=== PATIENT | female | born 1945 | race American Indian/Alaskan Native ===

== ENCOUNTER 2016-07-24 14:25 | Inpatient (IN) | payer MEDICARE ==
[~2016-07-24 14:25] MED LIST: DDAVP ONE; NACL 0.9% ONE
--- NOTE | 2016-07-24 14:49 | Emergency Department Report ---
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 Miramontes. Patient reports she's been having chest pain she had chest pressure for 7 days. She reports she had some nausea but not lately. Patient does complain of headache. - Exam Physical Exam: She's alert and oriented 3 cardiovascular S1-S2 regular rate and rhythm respiratory mild rales at the bases. Abdomen soft nontender nondistended. There is 2+ edema bilateral lower extremities MSE screening note: Focused history and physical exam performed. Due to findings the following was ordered: Appropriate labs and x-rays ordered inform charge nurse of patient's condition. ED Disposition for MSE Condition: Stable
[2016-07-24 15:08] LABS: Basophils % (Auto) 0.7 % (0.0-1.8); Eosinophils % (Auto) 2.8 % (0.0-4.3); Hematocrit 28.6 % (30.3-42.9); Mean Corpuscular HGB Conc 35 % (30-34); Mean Corpuscular Hemoglobin 31 pg (28-32); Mean Corpuscular Volume 89 fl (79-97); Platelet Count 355 K/mm3 (140-440); Red Cell Distribution Width 14.2 % (13.2-15.2); White Blood Count 7.1 K/mm3 (4.5-11.0)
[2016-07-24 15:19] LABS: INR 1.08 (0.87-1.13)
[2016-07-24 15:20] LABS: Partial Thromboplastin Time 32.6 Sec. (24.2-36.6)
[2016-07-24 15:25] LABS: BUN/Creatinine Ratio 5.88; Calcium 8.3 mg/dL (8.4-10.2); Chloride 93.6 mmol/L (98-107); Potassium 3.3 mmol/L (3.6-5.0)
--- NOTE | 2016-07-24 15:39 | Cat Scan Report ---
CT HEAD WITHOUT CONTRAST: HISTORY: Headache, hypertension. TECHNIQUE: Sequential CT images without contrast. FINDINGS: Images obtained show bilateral prominence of the sulci and ventricles. There are no abnormal intra- or extra-axial blood or fluid collections. There are no focal masses or evidence of mass effect. The berger white matter differentiation appears within normal limits. Regions of periventricular decreased attenuation are consistent with microangiopathic ischemic disease. The posterior fossa structures including the fourth ventricle, cerebellum, and brainstem appear normal. IMPRESSION: Evidence of atrophy and microangiopathic ischemic disease. No acute intracranial process noted.
--- NOTE | 2016-07-24 15:51 | Event Note ---
Document Type: CARDS NTE Document Date: July 24, 2016 13:34 Document Status: Auth (Verified) Document Title: Cardiology Office Visit Note Performed By: Osmar Dobson on July 24, 2016 13:35 Verified By: Osmar Dobson on July 24, 2016 14:20 Encounter info: [id number], ARMANDO ROBERTS Visit, 07/24/2016 - * Final Report * Visit Information Referring Provider: Osmar Dobson Review of Systems Respiratory: Shortness of breath Cardiovascular: Chest Pain Genitourinary: Other: CKD stage 4 Endocrine: Other: decrease in urination Psychiatric: Depression Physical Exam Constitutional: In no acute distress, well-nourished Eyes: Normal conjunctivae and eyelids Ears, Nose, Mouth Throat: Normal oral mucosa without pallor or cyanosis Neck: Jugular veins not distended, jugular venous pressure not elevated Respiratory: Normal, unlabored respiratory effort Lungs clear to auscultation bilaterally Cardiovascular: PMI nondisplaced; no palpable thrills, lifts, or heaves Normal S1 and S2 with no murmurs, rubs, or gallops Blood pressure equal in both arms No carotid bruits, normal carotid pulses and equal bilaterally No abdominal bruits, abdominal aorta not enlarged No femoral bruits, normal femoral pulses and equal bilaterally Normal PT and DP pulses bilaterally No peripheral edema Abdomen: Abdomen soft, nontender and nondistended, normal bowel sounds Liver and spleen not enlarged Musculoskeletal: Normal gait Extremities: Warm, no clubbing or cyanosis Skin: Normal skin Mental status: Orientated to person, place, time Cooperative, appropriate mood and affect Neurologic: Cranial nerves intact No focal neurologic deficits Assessment/Plan Chest pain at rest R07.89 Patient was referred by Dr. Man because of chest pain. Patient's blood pressure was found to be to 80/120. Patient has severe chronic kidney disease. Her chest pain most likely related to underlying malignant hypertension. Discussed with the patient and daughter, recommended going to the emergency room for management of her blood pressure. They agreed with the plan. Chronic kidney disease (CKD), stage IV (severe) N18.4 Diabetes mellitus type 2, uncomplicated E11.9 Essential hypertension, malignant I10 Problem List/Past Medical History Ongoing Angina pectoris Aortic valve regurgitation Comments: Moderate on ECHO 08/2007,has to sleep sitting up at night and in day she can't walk much.Has underlying AI/MR. 07/20/2009>patient still having sgnificant S.O.B with mild exertion,echo cardiogram(07/16/2009) showed moderate AI,B.P still elevated. 07/24/2009>mild AI(2+).on cath. Echo 09/2010 showed minimal ,moderate AI.Normal EF.Mild concentric LVH. 03/18/2011>echo showed EF 55%,mild to moderate AI. 06/11/2011>denies any S.O.B or palpitations.10/19/2012> moderate AI on echo done 08/2011.Very mild . 12/2013>AI is mild to moderate with normal EF. Atherosclerosis of coronary artery Comments: at [facility],normal LV function,significant mid LAD lesion,small calibre vessel,circ>non obstructive lesion,no significant MR,mild AI>medical therapy. >Xience-V stents in mid and proximal LAD with good result,distal vessel is narrow caliber vessel. 11/22/2009>vision stent proximal RCA. cath > patent coronary arteries. 03/18/2011>Stress Nuclear Imaging>fixed anterior, anteroseptal and anteroapical defects,no stress induced ischemia. 04/10/2011> gets tightness in chest on walking short distance.Neg .stress thallium. 2011>stress thallium >exercised 5',had chest pain,mostly fixed defects noted.2011>echo EF 55%.10/29/2011>gets tightness on walking,has to stop. Considering neg. stress thallium,may consider ECCp. 01/29/2012>started on ECCP, 08/10/2012> normal iv lexiscan thallium noted at [facility]. 12/20/2012>finished EECP>helped her well.Encouraged to exercise. 04/05/2013.denies any cardiac symptoms recently. Chest pain at rest Comments: 07/24/2016>Most likely related to her severe hypertension, 280/120 mm.hg. Chronic kidney disease (CKD), stage IV (severe) Comments: 07/24/2016>Nearing hemodialysis. being followed by . Congestive Heart Failure, Unspecified Comments: 08-10 echo ef 50% Diabetes mellitus type 2, uncomplicated Comments: being followed by . Essential hypertension Comments: still elevated.Increase lisinopril to 20 mg. qday,also increase Bystolic to 10 mg. qday. Patient may be taking 2 drugs of same class(KWADWO/ARB,B- blockercoreg and Bystolic.) Needs to adjust meds. 10/11/2010>still elevated,add Amlodopine 5 mg. qday. when she was very young. echo done 09/16/2010>normal EF, mild concentric LVH. 04/10/2011>says not take all meds this AM.06/17/2013> fairly under control. Mitral valve regurgitation Comments: Moderate on ECHO 08/2007,no significant MR on cath 07/24/2009. Pulmonic valve regurgitation Comments: Mild on ECHO 08/2007 Historical No qualifying data Procedure History [facility]OLTER MONITOR-24hrs.-([facility]) - Date: 12/20/[address] HM [address] [id number] x 24hrs. ([facility])@ 15:38 hrs. in Rvd.-12/20/14* RETURNS HM-12/21/14-Rvd. ROV: 01/08/15-ESRMGeorge Colonoscopy - Date: 01/2015 Cardiovascular stress testing - Date: 2013 Echocardiogram - Date: 10/06/2014 Cardiac catheterization - Date: 04/16/2010 Percutaneous coronary intervention - Date: 11/22/2009 Vascular studies performed - Date: 10/27/2012 CHRISTINA History of tonsillectomy - Date: Hx of appendectomy - Date: Cholecystectomy - Date: H/O: hysterectomy - Date: History of nasal surgery - Date: HOLTER [id number].-([facility]) - Date: 05/21/[address] [id number] - ([facility]).Aakash 24hrs. @ 14:46hrs.-ESR-05/21/15.* *ROV: 06/12/15-ESR.MGeorge Myocardial perfusion scan - Date: 05/21/2015 EKG - Date: 04/15/2016 Medications amLODIPine 10 mg oral tablet, 10 mg, 1 tab(s), PO, qDay, 5 refills aspirin 81 mg oral tablet, 81 mg, 1 tab(s), PO, MWF Ativan Benedryl 50mg, See Instructions Brimonidine Tartrate Bumex, qDay cloNIDine 0.2 mg oral tablet, 0.2 mg, PO, TID, 3 refills clopidogrel 75 mg oral tablet, 75 mg, PO, qDay, 3 refills Colace 100 mg oral capsule, 100 mg, 1 cap(s), PO, BID, PRN Dexilant, 60 mg, PO, qDay furosemide 40 mg oral tablet, 40 mg, 1 tab(s), PO, qDay HumuLIN 70/30 Klor-Con 8 oral tablet, extended release, 8 mEq, PO, qDay, 6 refills labetalol 200 mg oral tablet, 200 mg, 1 tab(s), PO, TID, 2 refills pravastatin 40 mg oral tablet, 40 mg, PO, qHS, 3 refills traMADol 50 mg oral tablet, 50 mg, 1 tab(s), PO, q4hr, PRN Vitamin D3 1000 intl units oral tablet, 1000 IU, 1 tab(s), PO, qDay Allergies iodine morphine shrimp sulfa drugs Social History Alcohol Use No Physical Activity Denies Recreational Drug Use No Tobacco Use / Exposure Never smoker, No Never smoker, No Family History Congestive heart failure 02-MAY-2016 21:16:40<$>: Mother. Diabetes mellitus: Sibling. Heart attack: Father. High blood pressure: Sibling. Signature Line Electronically Signed by: Osmar Dobson MD on 07.24.16.02:20 PM ADDENDUM: Pt sent from our office to ED per Dr. Dobson. Pt seen and examined in ED. Agree with above examination and assessment. Resume home ASA, norvasc, labetolol, and clonidine. F/u echo. Will continue to follow. The patient has been seen in conjunction with Dr. Barnes who agrees with the assessment and plan of care.
--- NOTE | 2016-07-24 15:53 | XRay Report ---
CHEST 2 VIEWS: INDICATION: Shortness of breath, chest pain. COMPARISON: 07/18/2015 FINDINGS: PA and lateral chest radiographs demonstrate normal cardiomediastinal silhouette. Slightly greater prominence of lung markings, more so centrally. Minimal fluid or thickening along the right minor fissure is also new. No large pleural effusions or overt CHF, however. Demineralized bones. Few upper abdominal surgical clips. CONCLUSION: Slightly prominent lung markings/minimal congestion without overt CHF, as described. Please correlate. Thank you for the opportunity to participate in this patient's care.
[2016-07-24] MEDS: CATAPRES PO SCH ×2 (16:05→20:42)
--- NOTE | 2016-07-24 17:26 | Emergency Department Report ---
HPI - General Chief Complaint: High BP Time Seen by Provider: 07/24/16 14:44 - HPI HPI: Room 5 The patient is a 70-year-old female presenting with a chief complaint of chest pain and headache. 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 Patient claimed of headache and chest pain for the past 3 days. Patient states chest pain is substernal and dull, heavy and pressure-like in nature the pain is been intermittent. Patient does admit to shortness of breath and nausea/vomiting. Patient is uncertain she's been diaphoretic. The patient states her last stress test occurred earlier this year and was normal. The patient states last time she had a cardiac catheterization was 2008 Location: Chest, head Duration: Days, intermittently Quality: Heavy, pressure, dull Severity: Currently 0/10 Modifying factors: [see above] Context: [see above] Mode of transportation: [not driving] ED Past Medical Hx - Past Medical History Previous Medical History?: Yes Hx Hypertension: Yes (FOR 15+ YRS) Hx Heart Attack/AMI: Yes (IN 2008) Hx Congestive Heart Failure: Yes Hx Diabetes: Yes (30+ YRS) Hx GERD: Yes Hx Renal Disease: Yes (CKD) Hx Arthritis: Yes Hx Headaches / Migraines: Yes Hx Seizures: Yes (x1, not on meds) Hx Asthma: Yes (seasonal) - Surgical History Past Surgical History?: Yes Hx Coronary Stent: Yes (x3) Hx Cholecystectomy: Yes Hx Appendectomy: Yes Additional Surgical History: 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 - Family History Family history: no significant - Social History Smoking Status: Never Smoker Substance Use Type: Prescribed - Medications Home Medications: Home Medications Medication Instructions Recorded Confirmed Last Taken Type Dexlansoprazole [Dexilant] 60 mg PO QDAY #30 04/06/14 02/07/16 Rx 60mg Potassium Chloride [Klor-Con 8] 8 meq PO QDAY #30 tablet 04/06/14 02/07/1602/05 Rx 8meq cloNIDine [Catapres] 0.2 mg PO TID #90 tablet 04/06/14 02/07/16 02/07/16 08:00 Rx 0.2mg Clopidogrel [Plavix] 75 mg PO QDAY #30 tablet 12/02/07/16 02/07/16 08:00 Rx 75mg LORazepam [Ativan] 1 mg PO QHS #30 tablet 07/20/15 02/07/16 02/04/16 Rx 1mg Labetalol [Normodyne TAB] 200 mg PO TID #90 tablet 07/20/15 02/07/16 02/07/16 08 :00 Rx 200mg Latanoprost 0.005% [Xalatan 0.005%] 1 drops OU QPM bottle 07/20/15 02/07/16 Unknown Rx amLODIPine [Norvasc] 10 mg PO QDAY #30 tablet 07/20/15 02/07/16 02/07/16 08:00 Rx Aspirin BABY CHEW TAB 81 mg PO 3XW 02/07/16 02/07/16 01/26/16 History 81mg Brimonidine 0.15% [Alphagan P 1 drop INTRAOCULA TID 02/07/16 02/07/16 02/06/16 History 0.15%] 1 drop Bumetanide [Bumex] 1 mg PO DAILY 02/07/16 02/07/16 02/06/16 History 1mg Cholecalciferol (Vitamin D3) 1,000 units PO DAILY 02/07/16 02/07/16 2 Weeks Ago History 1000units Insulin Aspart Prot/Aspart 40 - 45 units SQ BID 02/07/16 02/07/16 02/06/16 History [NovoLOG Mix 70/30 VIAL] 40units Linaclotide [Linzess] 145 mcg PO DAILY 02/07/16 02/07/16 Unknown History Pravastatin Sodium [Pravastatin] 40 mg PO HS 02/07/16 02/07/16 01/31/16 History diphenhydrAMINE [Benadryl CAP] 50 mg PO Q8H 02/07/16 02/07/16 02/07/16 06:00 History predniSONE [Deltasone] 50 mg PO Q8H 02/07/16 02/07/16 02/07/16 History 0600 traMADol [Ultram] 50 mg PO Q4HR PRN #20 tablet 04/04/16 Unknown Rx ED Review of Systems ROS: Stated complaint: CHEST PAIN Other details as noted in HPI Comment: All other systems reviewed and negative Constitutional: denies: chills, fever Eyes: denies: eye pain, eye discharge, vision change ENT: denies: ear pain, throat pain Respiratory: shortness of breath Cardiovascular: chest pain Endocrine: no symptoms reported Gastrointestinal: nausea, vomiting Genitourinary: denies: urgency, dysuria, discharge Musculoskeletal: denies: back pain, joint swelling, arthralgia Skin: denies: rash, lesions Neurological: headache Psychiatric: denies: anxiety, depression Hematological/Lymphatic: denies: easy bleeding, easy bruising Physical Exam - Physical Exam Vital Signs: Vital Signs 07/24/16 07/24/16 07/24/16 14:25 15:46 16:05 Temperature 98.4 F Pulse Rate 81 78 78 Respiratory 22 16 Rate Blood Pressure 282/218 218/99 Blood Pressure 218/99 [Right] O2 Sat by Pulse 100 98 Oximetry Physical Exam: GENERAL: The patient is well-developed well-nourished female lying on stretcher not appearing to be in acute distress. [] HEENT: Normocephalic. Atraumatic. Extraocular motions are intact. Patient has moist mucous membranes. NECK: Supple. Trachea midline CHEST/LUNGS: Clear to auscultation. There is no respiratory distress noted. HEART/CARDIOVASCULAR: Regular. There is no tachycardia. There is no gallop rub or murmur. ABDOMEN: Abdomen is soft, nontender. Patient has normal bowel sounds. There is no abdominal distention. SKIN: There is no rash. There is no edema. There is no diaphoresis. NEURO: The patient is awake, alert, and oriented. The patient is cooperative. The patient has no focal neurologic deficits. The patient has normal speech. Cranial nerves II through XII grossly intact, no drift MUSCULOSKELETAL: There is no evidence of acute injury. ED Course Vital Signs 07/24/16 07/24/16 07/24/16 14:25 15:46 16:05 Temperature 98.4 F Pulse Rate 81 78 78 Respiratory 22 16 Rate Blood Pressure 282/218 218/99 Blood Pressure 218/99 [Right] O2 Sat by Pulse 100 98 Oximetry - Consultations Consultation #1: 07/24/16 17:[address] Swenson [facility]- ED Medical Decision Making - Lab Data Result diagrams: 07/24/16 14:54 07/24/16 14:54 Laboratory Tests 07/24/16 07/24/16 07/24/16 14:54 14:54 14:54 WBC 7.1 RBC 3.20 L Hgb 10.0 L Hct 28.6 L MCV 89 MCH 31 MCHC 35 H RDW 14.2 Plt Count 355 Lymph % (Auto) 22.6 [place] % (Auto) 5.5 Eos % (Auto) 2.8 Baso % (Auto) 0.7 Lymph # 1.6 [place] # 0.4 Eos # 0.2 Baso # 0.0 Seg Neutrophils % 68.4 Seg Neutrophils # 4.8 PT 13.9 INR 1.08 APTT 32.6 Sodium 132 L Potassium 3.3 L Chloride 93.6 L Carbon Dioxide 22 Anion Gap 20 BUN 20 H Creatinine 3.4 H Estimated GFR 16 BUN/Creatinine Ratio 5.88 Glucose 298 H Calcium 8.3 L Troponin T 0.026 NT-Pro-B Natriuret Pep 07/24/16 15:02 WBC RBC Hgb Hct MCV MCH MCHC RDW Plt Count Lymph % (Auto) [place] % (Auto) Eos % (Auto) Baso % (Auto) Lymph # [place] # Eos # Baso # Seg Neutrophils % Seg Neutrophils # PT INR APTT Sodium Potassium Chloride Carbon Dioxide Anion Gap BUN Creatinine Estimated GFR BUN/Creatinine Ratio Glucose Calcium Troponin T NT-Pro-B Natriuret Pep 30402 H - EKG Data -: EKG Interpreted by Me EKG shows normal: sinus rhythm Rate: normal - EKG Data When compared to previous EKG there are: changes noted Interpretation: unchanged when compared t (08/10/2012), nonspecific ST-T wave billy - Radiology Data Radiology results: report reviewed (CT head), image reviewed (CT head, chest x- ray) interpreted by me: Chest x-ray-no focal infiltrates, no pneumothorax CT head (read by radiologist)- evidence of atrophy and microangiopathic ischemic disease. No acute intracranial process noted. - Differential Diagnosis hypertensive emergency, hypertensive urgency, ACS, ICH Critical care attestation.: If time is entered above; I have spent that time in minutes in the direct care of this critically ill patient, excluding procedure time. ED Disposition Clinical Impression: Chest pain, Hypertensive urgency, Acute on chronic renal failure, Headache Disposition: OP ADMITTED IP TO THIS HOSP Is pt being admited?: Yes Does the pt Need Aspirin: No (renal failure) Condition: Fair Instructions: Chest Pain (ED) Time of Disposition: 17:29 (hospitalist paged)
[2016-07-24] MEDS ORDERED: NITRO-BID 2% TP ONE (17:29)
[2016-07-24] MEDS ORDERED: PLAVIX PO ONE (17:43)
--- NOTE | 2016-07-24 17:46 | Admit Criteria Form ---
Admission Criteria Documentation: HYPERTENSION Clinical Indications for Admission to Inpatient Care ( Place "X" for any and all applicable criteria): Admission is indicated for ANY ONE of the following(1)(2)(3)(4): [X]I. Hypertensive emergency, with evidence of acute and progressing target organ disease as indicated by ANY ONE of the following: [ ]a) Hypertensive encephalopathy (eg, confusion, altered mental status) [ ]b) Cerebral infarction [ ]c) Intracranial hemorrhage [ ]d) Myocardial ischemia or infarction [ ]e) Pulmonary edema [ ]f) Aortic dissection [ ]g) Seizure [X]h) Acute renal insufficiency [ ]i) Papilledema [ ]j) Microangiopathic hemolytic anemia [ ]II. Adrenergic crisis (eg, severe hypertension due to pheochromocytoma crisis, cocaine or amphetamine intoxication, or clonidine withdrawal) [X]III. Severe hypertension (SBP greater than 180 mmHg or DBP greater than 110 mmHg or greater than the 95th percentile for age, gender, and height in pediatric patients) that cannot be controlled (eg, to SBP less than 160 mmHg and DBP less than 100 mmHg in adults) by treatment with oral medication in emergency department or observation care Extended stay beyond goal length of stay may be needed for(11)(12)(13): [ ]a) Persistent hypertensive encephalopathy [ ]b) Continuation of pulmonary edema [ ]c) Recurring or persistent severe hypertension [ ]d) Target organ damage (eg, angina, stroke, aortic dissection) [ ]e) Associated renal insufficiency The original [employer] content created by [employer] has been revised. The portions of the content which have been revised are identified through the use of italic text or in bold, and [facility] has neither reviewed nor approved the modified material. All other unmodified content is copyright [employer]. Please see references footnoted in the original [employer] edition 2016
--- NOTE | 2016-07-24 18:29 | History and Physical Report ---
History of Present Illness Date of examination: 07/24/16 Date of admission: 07/24/2016 Chief complaint: Chest pain, shortness of breath and headache History of present illness: patient is 77-year-old with history of hypertension, coronary artery disease, CHF ,chronic kidney disease. She went to see a personal injury legal assistant Dr. Man had multiple complaints and was sent to prop attendant. She was evaluated by Dr. Dobson. She complained of chest pain. Her blood pressure was very elevated so was sent to the emergency department for further evaluation. Chest pain is 10 out of 10. Quality like a pressure. She denies any radiation. Chest pain is worse on exertion. Shortness of breath also worse on exertion. In emergency department initial blood pressure was 282/218. She was given clonidine, Norvasc and will be admitted to telemetry if BP controlled or ICU if BP remains high. She was evaluated by prop attendant in emergency department. Past History Past Medical History: acute VT, CAD, GERD, heart failure, hypertension, hyperlipidemia, renal failure (CKD), other (aortic valve regurg) Past Surgical History: appendectomy, cholecystectomy Social history: , lives with family, smoking (no smoking), alcohol abuse (no alcohol), full code Family history: diabetes, hypertension Medications and Allergies Allergies Allergy/AdvReac Type Severity Reaction Status Date / Time hydralazine Allergy Nausea Verified 07/24/16 14:37 iodine Allergy Itching Verified 07/24/16 14:37 morphine Allergy Nausea Verified 07/24/16 14:37 shellfish derived Allergy Swelling Verified 07/24/16 14:37 Sulfa (Sulfonamide Allergy Rash Verified 07/24/16 14:37 Antibiotics) Home Medications Medication Instructions Recorded Confirmed Last Taken Type Dexlansoprazole [Dexilant] 60 mg PO QDAY #30 timbo. 04/06/14 02/07/16 Rx 60mg Potassium Chloride [Klor-Con 8] 8 meq PO QDAY #30 tablet 04/06/14 02/07/1602/05 Rx 8meq cloNIDine [Catapres] 0.2 mg PO TID #90 tablet 04/06/14 02/07/16 02/07/16 08:00 Rx 0.2mg Clopidogrel [Plavix] 75 mg PO QDAY #30 tablet 07/20/15 02/07/16 02/07/16 08:00 Rx 75mg LORazepam [Ativan] 1 mg PO QHS #30 tablet 07/20/15 02/07/16 02/04/16 Rx 1mg Labetalol [Normodyne TAB] 200 mg PO TID #90 tablet 07/20/15 02/07/16 02/07/16 08 :00 Rx 200mg Latanoprost 0.005% [Xalatan 0.005%] 1 drops OU QPM bottle 07/20/15 02/07/16 Unknown Rx amLODIPine [Norvasc] 10 mg PO QDAY #30 tablet 07/20/15 02/07/16 02/07/16 08:00 Rx Aspirin BABY CHEW TAB 81 mg PO 3XW 02/07/16 02/07/16 01/26/16 History 81mg Brimonidine 0.15% [Alphagan P 1 drop INTRAOCULA TID 02/07/16 02/07/16 02/06/16 History 0.15%] 1 drop Bumetanide [Bumex] 1 mg PO DAILY 02/07/16 02/07/16 02/06/16 History 1mg Cholecalciferol (Vitamin D3) 1,000 units PO DAILY 02/07/16 02/07/16 2 Weeks Ago History 1000units Insulin Aspart Prot/Aspart 40 - 45 units SQ BID 02/07/16 02/07/16 02/06/16 History [NovoLOG Mix 70/30 VIAL] 40units Linaclotide [Linzess] 145 mcg PO DAILY 02/07/16 02/07/16 Unknown History Pravastatin Sodium [Pravastatin] 40 mg PO HS 02/07/16 02/07/16 01/31/16 History diphenhydrAMINE [Benadryl CAP] 50 mg PO Q8H 02/07/16 02/07/16 02/07/16 06:00 History predniSONE [Deltasone] 50 mg PO Q8H 02/07/16 02/07/16 02/07/16 History 0600 traMADol [Ultram] 50 mg PO Q4HR PRN #20 tablet 04/04/16 Unknown Rx Active Meds: Active Medications Aspirin (Aspirin) 81 mg PO DAILY [facility] Clonidine HCl (Catapres) 0.2 mg PO TID [facility] Last Admin: 07/24/16 16:05 Dose: 0.2 mg Labetalol HCl (Normodyne) 200 mg PO TID [facility] Review of Systems All systems: negative (fever, no cough, no abdominal pain, no urinary symptoms. All other systems reviewed and are negative) Exam - Constitutional Vitals: Temp Pulse Resp BP Pulse Ox 98.4 F 78 16 218/99 98 07/24/16 14:25 07/24/16 16:05 07/24/16 17:21 07/24/16 16:05 07/24/16 15:46 General appearance: Present: no acute distress - EENT Eyes: Present: PERRL, EOM intact ENT: hearing intact, clear oral mucosa - Neck Neck: Present: supple, normal ROM - Respiratory Respiratory effort: normal Respiratory: bilateral: CTA, negative: diminished, rales, rhonchi, wheezing - Cardiovascular Rhythm: regular Heart Sounds: Present: S1 & S2 (S1 and S2 regular, no murmurs rubs or gallops) - Extremities Extremities: no ischemia, No edema, normal temperature, normal color - Abdominal General gastrointestinal: Present: soft, non-tender, non-distended, normal bowel sounds - Integumentary Integumentary: Present: clear, warm, dry - Musculoskeletal Musculoskeletal: strength equal bilaterally - Psychiatric Psychiatric: appropriate mood/affect - Neurologic Neurologic: moves all extremities, other (awake alert oriented 3, no focal neurologic signs) Results - Labs CBC & Chem 7: 07/24/16 14:54 07/24/16 14:54 Labs: Abnormal lab results 07/24/16 07/24/16 07/24/16 Range/Units 14:54 14:54 15:02 RBC 3.20 L (3.65-5.03) M/mm3 Hgb 10.0 L (10.1-14.3) gm/dl Hct 28.6 L (30.3-42.9) % MCHC 35 H (30-34) % Sodium 132 L (137-145) mmol/L Potassium 3.3 L (3.6-5.0) mmol/L Chloride 93.6 L (98-107) mmol/L BUN 20 H (7-17) mg/dL Creatinine 3.4 H (0.7-1.2) mg/dL Glucose 298 H (65-100) mg/dL Calcium 8.3 L (8.4-10.2) mg/dL NT-Pro-B Natriuret Pep 05047 H (0-900) pg/mL Assessment and Plan Hypertensive emergency. Initial blood pressure 282/218. Clonidine 0.2 mg by mouth given. Admit to Telemetry if BP improves. If Blood pressure remains high he may have to transfer to ICU. Chest pain. This may be secondary to accelerated hypertension. Aspirin daily. Initial troponin normal. Patient evaluated by prop attendant Dr. Dobson in office and by prop attendant from same group in emergency department. Chronic diastolic CHF Ejection fraction 50-55% from records in the office. CAD s/p coronary stents, s/p myocardial infarction Acute on chronic kidney disease Stage 4. Creatinine 3.4 today, higher than baseline. Consult personal injury legal assistant Dr. Man DVT prophylaxis with heparin Full CODE STATUS
[2016-07-24] MEDS ORDERED: DULCOLAX PR PRN (18:31)
[2016-07-24] MEDS ORDERED: ZOFRAN IV PRN (18:31)
[2016-07-24] MEDS ORDERED: K-DUR PO ONE (18:52)
[2016-07-24] MEDS ORDERED: SODIUM CHLORIDE FLUSH SYRINGE 10 ML IV PRN (18:53)
[2016-07-24] MEDS ORDERED: CATAPRES ONE (20:34)
[2016-07-24] MEDS ORDERED: NORMODYNE ONE (20:34)
[2016-07-24] MEDS: NORMODYNE PO SCH (20:42)
--- NOTE | 2016-07-24 21:09 | Event Note ---
Date: 07/24/16 Blood pressure uncontrolled 221/100. Start Cardene infusion and transfer to ICU
[2016-07-24] MEDS: NITRO-BID 2% TP SCH (21:13)
[2016-07-24] MEDS ORDERED: CARDENE DRIP 40 MG/200 ML 200 ML ONE (22:32)
[2016-07-24] MEDS: CARDENE DRIP 40 MG/200 ML 200 ML IV SCH (22:40)
[2016-07-24] MEDS ORDERED: HEPARIN ONE (22:41)
[2016-07-24] MEDS: HEPARIN SUB-Q SCH (22:46)
[2016-07-25] MEDS: NITRO-BID 2% TP SCH ×4 (01:40→13:22)
[2016-07-25 04:37] LABS: Basophils % (Auto) 0.9 % (0.0-1.8); Eosinophils % (Auto) 3.7 % (0.0-4.3); Hematocrit 25.7 % (30.3-42.9); Hemoglobin 8.7 gm/dl (10.1-14.3); Mean Corpuscular HGB Conc 34 % (30-34); Mean Corpuscular Hemoglobin 30 pg (28-32); Mean Corpuscular Volume 89 fl (79-97); Platelet Count 324 K/mm3 (140-440); Red Blood Count 2.88 M/mm3 (3.65-5.03); Red Cell Distribution Width 14.1 % (13.2-15.2); White Blood Count 6.2 K/mm3 (4.5-11.0)
[2016-07-25 04:55] LABS: BUN/Creatinine Ratio 6.12; Chloride 101.8 mmol/L (98-107); Potassium 3.8 mmol/L (3.6-5.0)
[2016-07-25] MEDS: HEPARIN SUB-Q SCH ×3 (06:21→22:07)
[2016-07-25] MEDS: CARDENE DRIP 40 MG/200 ML 200 ML IV SCH (06:22)
[2016-07-25] MEDS: CATAPRES PO SCH ×3 (09:00→22:06)
[2016-07-25] MEDS: NORMODYNE PO SCH ×3 (09:00→22:05)
[2016-07-25] MEDS ORDERED: ASPIRIN PO SCH (10:00)
[2016-07-25] MEDS: PLAVIX PO SCH (10:08)
[2016-07-25] MEDS: HALFPRIN EC PO SCH (10:08)
--- NOTE | 2016-07-25 11:16 | Consultation ---
History of Present Illness Consult date: 07/25/16 Reason for consult: dyspnea, chest pain History of present illness: Called to evaluate case of a 77-year-old -[place] female, who presented to the hospital ED with shortness of breath. This in the context of past medical history positive for hypertension, coronary artery disease, CHF ,chronic kidney disease. She was seen by nephrology and cardiology prior to admission and was noted to have severely elevated blood pressure. At the time of evaluation the ER her blood pressure was 282/R and 18. She presented with pressure on her chest some degree of chest pain and the support exertion. No wheezing reported but easy fatigue reported by patient. Also lower extremity swelling. No cough or hemoptysis noted. No wheezing. The patient was admitted to the hospital and started on Cardene drip for hypertension management. She was admitted to the ICU. PAST RESPIRATORY HISTORY IS REMARKABLE FOR CHILDHOOD ASTHMA WITH NO RECENT EVENTS. SHE ALSO STATES HISTORY OF SNORING AND SHE HAD A SLEEP STUDY 7 YEARS AGO. She states that she had the test done but never had results on the tests so is unclear whether she was positive or not. She is usual fatigue and tired and thinks this might be related to her kidney problems. Currently she does not smoke. No fevers chills or additional complaints at this time. Past History Past Medical History: acute SC, CAD, GERD, heart failure, hypertension, hyperlipidemia, renal failure (CKD), other (aortic valve regurg) Past Surgical History: appendectomy, cholecystectomy Social history: , lives with family, smoking (no smoking), alcohol abuse (no alcohol), full code Family history: diabetes, hypertension Medications and Allergies Allergies Allergy/AdvReac Type Severity Reaction Status Date / Time hydralazine Allergy Nausea Verified 07/24/16 14:37 iodine Allergy Itching Verified 07/24/16 14:37 morphine Allergy Nausea Verified 07/24/16 14:37 shellfish derived Allergy Swelling Verified 07/24/16 14:37 Sulfa (Sulfonamide Allergy Rash Verified 07/24/16 14:37 Antibiotics) Home Medications Medication Instructions Recorded Confirmed Last Taken Type Dexlansoprazole [Dexilant] 60 mg PO QDAY #30 04/06/14 07/25/16 1 Week Ago Rx Potassium Chloride [Klor-Con 8] 8 meq PO QDAY #30 tablet 04/06/14 07/25/16 1 Day Ago Rx cloNIDine [Catapres] 0.2 mg PO TID #90 tablet 04/06/14 07/25/16 1 Day Ago Rx Clopidogrel [Plavix] 75 mg PO QDAY #30 tablet 07/20/15 07/25/16 1 Week Ago Rx LORazepam [Ativan] 1 mg PO QHS #30 tablet 07/20/15 07/25/16 07/20/16 Rx Labetalol [Normodyne TAB] 200 mg PO TID #90 tablet 07/20/15 07/25/16 1 Day Ago Rx Latanoprost 0.005% [Xalatan 0.005%] 1 drops OU QPM bottle 07/20/15 07/25/16 1 Week Ago Rx amLODIPine [Norvasc] 10 mg PO QDAY #30 tablet 07/20/15 07/25/16 02/07/16 08:00 Rx Aspirin BABY CHEW TAB 81 mg PO 3XW 02/07/16 07/25/16 01/26/16 History 81mg Brimonidine 0.15% [Alphagan P 1 drop INTRAOCULA TID 02/07/16 07/25/16 3 Days Ago History 0.15%] Bumetanide [Bumex] 1 mg PO DAILY 02/07/16 07/25/16 02/06/16 History 1mg Cholecalciferol (Vitamin D3) 1,000 units PO DAILY 02/07/16 07/25/16 07/22/16 History Insulin Aspart Prot/Aspart 40 - 45 units SQ BID 02/07/16 07/25/16 1 Week Ago History [NovoLOG Mix 70/30 VIAL] Linaclotide [Linzess] 145 mcg PO DAILY 02/07/16 07/25/16 2 Weeks Ago History Pravastatin Sodium [Pravastatin] 40 mg PO HS 02/07/16 07/25/16 3 Months Ago History diphenhydrAMINE [Benadryl CAP] 50 mg PO Q8H 02/07/16 07/25/16 02/07/16 06:00 History predniSONE [Deltasone] 50 mg PO Q8H 02/07/16 07/25/16 02/07/16 History 0600 traMADol [Ultram] 50 mg PO Q4HR PRN #20 tablet 04/04/16 07/25/16 01/07/16 Rx Active Meds: Active Medications Acetaminophen (Tylenol) 650 mg PO Q4H PRN PRN Reason: Pain MILD(1-3)/Fever >100.5/VIGIL Aspirin (Halfprin Ec) 81 mg PO QDAY [facility] Last Admin: 07/25/16 10:08 Dose: 81 mg Bisacodyl (Dulcolax) 10 mg [place] QDAY PRN PRN Reason: Constipation unrelieved by MOM Clonidine HCl (Catapres) 0.2 mg PO TID [facility] Last Admin: 07/25/16 09:00 Dose: 0.2 mg Clopidogrel Bisulfate (Plavix) 75 mg PO QDAY [facility] Last Admin: 07/25/16 10:08 Dose: 75 mg Heparin Sodium (Porcine) (Heparin) 5,000 unit SUB-Q Q8HR [facility] Last Admin: 07/25/16 06:21 Dose: 5,000 unit Nicardipine/Sodium Chloride (Cardene Drip 40 Mg/200 Ml) 200 mls @ 25 mls/hr IV TITR [facility]; 5 MG/HR PRN Reason: Protocol Last Titration: 07/25/16 09:02 Dose: 3 mg/hr Influenza Virus Vaccine Quadrival (Fluarix Quad [id number](36 Mos+)) 60 mcg IM .ONCE ONE Stop: 07/25/16 12:01 Insulin Human Regular (Novolin R) 0 units SUB-Q ACHS [facility] PRN Reason: Protocol Last Admin: 07/25/16 08:00 Dose: Not Given Labetalol HCl (Normodyne) 200 mg PO TID [facility] Last Admin: 07/25/16 09:00 Dose: 200 mg Nitroglycerin (Nitro-Bid 2%) 0.5 inch TP QIDNTG [facility] PRN Reason: Protocol Last Admin: 07/25/16 10:09 Dose: 0.5 inch Ondansetron HCl (Zofran) 4 mg IV Q8H PRN PRN Reason: nausea or vomiting Sodium Chloride (Sodium Chloride Flush Syringe 10 Ml) 10 ml IV PRN PRN PRN Reason: LINE FLUSH Review of Systems Constitutional: weight gain Ears, nose, mouth and throat: other (snoring) Breasts: deferred Cardiovascular: chest pain, orthopnea, palpitations, edema, dyspnea on exertion , high blood pressure, leg edema Respiratory: shortness of breath, dyspnea on exertion, congestion, sleep apnea, no hemoptysis, no pain, no pain on inspiration Gastrointestinal: no abdominal pain, no nausea, no vomiting, no constipation, no hematemesis, no coffee ground emesis, no melena Neurological: no transient paralysis, no paralysis, no weakness, no parathesias , no numbness, no seizures, no syncope Psychiatric: no anxiety, no memory loss Physical Examination Vital signs: Vital Signs Temp Pulse Resp BP Pulse Ox 98.4 F 81 22 282/218 100 07/24/16 14:25 07/24/16 14:25 07/24/16 14:25 07/24/16 14:25 07/24/16 14:25 General appearance: no acute distress, other (morbidly obese) Eyes: non-icteric ENT: oropharynx moist, other (airway is Mallampati 4) Neck: supple Ascultation: Bilateral: clear Cardiovascular: regular rate and rhythm Gastrointestinal: normoactive bowel sounds, non-distended Integumentary: normal Extremities: no cyanosis, other (+1 pretibial edema) Musculoskeletal: no deformities normal mental status, non-focal exam, CN II-XII normal mood appropriate, affect normal Results - Laboratory Findings CBC and BMP: 07/25/16 04:14 07/25/16 04:14 PT/INR, D-dimer PT 13.9 Sec. (12.2-14.9) 07/24/16 14:54 INR 1.08 (0.87-1.13) 07/24/16 14:54 Abnormal lab findings: Abnormal Labs 07/25/16 07/25/16 07/25/16 00:57 04:14 04:14 RBC 2.88 L Hgb 8.7 L Hct 25.7 L Carbon Dioxide 19 L BUN 19 H Creatinine 3.1 H Glucose 237 H POC Glucose 279 H Calcium 8.0 L - Diagnostic Findings Chest x-ray: report reviewed, image reviewed Assessment and Plan Hypertensive emergency. Symptoms improved once blood pressure under control Uncontrolled hypertension Chronic kidney disease stage IV morbid obesity Obstructive sleep apnea, suspected Recommendations Continue her hypertensive management. \May be switched slowly to oral drugs HNT at this point. Continue oxygen support as needed to maintain oximetry over 92%. Patient will need sleep study evaluation as an outpatient in order to evaluate for ongoing sleep apnea She will also benefit from PFTs since, although I think her respiratory symptoms are related to hypertension, she has prior history of asthma. Currently not on treatment Weight loss management, nutritional support DVT prophylaxis Check influenza vaccination status and update if needed Thank you for the opportunity to see this patient.
[2016-07-25] MEDS ORDERED: FLUARIX QUAD 2016-2017(36 MOS+) IM ONE (12:00)
--- NOTE | 2016-07-25 12:03 | Progress Note ---
Assessment and Plan I will optimize her antihypertensive regimen as well as anti-ischemic regimen. Nicardipine drip will be weaned thereafter. - Patient Problems (1) Accelerated hypertension Current Visit: Yes Status: Acute (2) Chest pain Current Visit: Yes Status: Acute (3) Acute on chronic diastolic heart failure Current Visit: Yes Status: Acute (4) Stented coronary artery Current Visit: Yes Status: Chronic (5) Acute kidney injury superimposed on CKD Current Visit: Yes Status: Acute (6) CAD (coronary artery disease) Current Visit: Yes Status: Chronic Qualifiers: Coronary Disease-Associated Artery/Lesion type: [place] artery (7) Anemia Current Visit: Yes Status: Acute Subjective Date of service: 07/25/16 Principal diagnosis: Chest pain, Acute on chronic DHF, Accelerated HTN, Acute on CKD Interval history: She still has intermittent chest pain. She remains on nicardipine drip. Objective Vital Signs Last Vital Signs Temp 97 F L 07/25/16 08:00 Pulse 71 07/25/16 10:54 Resp 19 07/25/16 10:54 BP 150/64 07/25/16 10:54 Pulse Ox 100 07/25/16 10:54 - Physical Examination General: No Apparent Distress HEENT: Positive: EOMI, Normocephaly, Mucus Membranes Moist Neck: Positive: neck supple, trachea midline, JVD/HJR Cardiac: Positive: Reg Rate and Rhythm, S1/S2 Lungs: Positive: clear to auscultation Neuro: Positive: Grossly Intact Abdomen: Positive: Soft, Active Bowel Sounds. Negative: Tender Skin: Positive: Clear. Negative: Rash Musculoskeletal: Normal Range of Motion Extremities: Present: +2 Edema (both legs) - Labs and Meds CBC 07/25/16 Range/Units 04:14 WBC 6.2 (4.5-11.0) K/mm3 RBC 2.88 L (3.65-5.03) M/mm3 Hgb 8.7 L (10.1-14.3) gm/dl Hct 25.7 L (30.3-42.9) % Plt Count 324 (140-440) K/mm3 Lymph # 2.0 (1.2-5.4) K/mm3 [place] # 0.4 (0.0-0.8) K/mm3 Eos # 0.2 (0.0-0.4) K/mm3 Baso # 0.1 (0.0-0.1) K/mm3 Comprehensive Metabolic Panel 07/25/16 Range/Units 04:14 Sodium 137 (137-145) mmol/L Potassium 3.8 (3.6-5.0) mmol/L Chloride 101.8 (98-107) mmol/L Carbon Dioxide 19 L (22-30) mmol/L BUN 19 H (7-17) mg/dL Creatinine 3.1 H (0.7-1.2) mg/dL Glucose 237 H (65-100) mg/dL Calcium 8.0 L (8.4-10.2) mg/dL - Telemetry EKG Rhythm: Sinus Rhythm
--- NOTE | 2016-07-25 12:39 | Progress Note ---
Assessment and Plan - Patient Problems (1) Accelerated hypertension Current Visit: Yes Status: Resolved Plan to address problem: Improved Will transfer to Telemetry (2) Acute on chronic renal failure Current Visit: Yes Status: Acute Plan to address problem: Iv fluids Defer to Nephrology (3) Chest pain Current Visit: Yes Status: Acute Qualifiers: Chest pain type: unspecified Qualified Code(s): R07.9 - Chest pain, unspecified Plan to address problem: Patient refuses Stress test. She had a stress test last week (4) Diabetes mellitus, insulin dependent (IDDM), uncontrolled Current Visit: Yes Status: Chronic Qualifiers: Diabetes mellitus complication detail: with chronic kidney disease Plan to address problem: Cont insulin 70/30 45 units sq bid and coverage . Adjust dosage at time of discharge (5) Anemia Current Visit: Yes Status: Chronic Qualifiers: Other causes of anemia: chronic disease, kidney (6) CAD (coronary artery disease) Current Visit: Yes Status: Chronic Qualifiers: Coronary Disease-Associated Artery/Lesion type: [place] artery Plan to address problem: On plavix 75 mg po qd (7) HLD (hyperlipidemia) Current Visit: Yes Status: Chronic Qualifiers: Hyperlipidemia type: mixed hyperlipidemia Qualified Code(s): E78.2 - Mixed hyperlipidemia Plan to address problem: On statins (8) DVT prophylaxis Current Visit: Yes Status: Acute Plan to address problem: On heparin Subjective Date of service: 07/25/16 Principal diagnosis: Chest pain, Acute on chronic DHF, Accelerated HTN, Acute on CKD Interval history: Patient is 77-year-old with history of hypertension, coronary artery disease, CHF ,chronic kidney disease. She went to see a director of [employer] in [employer] Dr. Man had multiple complaints and was sent to medical collections. She was evaluated by Dr. Dobson. She complained of chest pain. Her blood pressure was very elevated so was sent to the emergency department for further evaluation. Chest pain is 10 out of 10. Quality like a pressure. She denies any radiation. Chest pain is worse on exertion. Shortness of breath also worse on exertion. In emergency department initial blood pressure was 282/218. She was given clonidine, Norvasc and will be admitted to telemetry if BP controlled or ICU if BP remains high. She was evaluated by medical collections in emergency department. Objective - Constitutional Vitals: Vital Signs - 12hr 07/25/16 07/25/1616 00:45 01:00 01:16 Temperature Pulse Rate 67 68 65 Pulse Rate [ Apical] Respiratory 17 16 16 Rate Blood Pressure 165/66 127/51 165/66 O2 Sat by Pulse 100 100 100 Oximetry 07/25/16 07/25/16 07/25/16 01:30 01:40 01:46 Temperature Pulse Rate 65 68 66 Pulse Rate [ Apical] Respiratory 16 17 Rate Blood Pressure 165/66 127/51 165/66 O2 Sat by Pulse 100 100 Oximetry 07/25/16 07/25/16 07/25/16 02:00 02:16 02:30 Temperature Pulse Rate 64 64 65 Pulse Rate [ Apical] Respiratory 16 16 16 Rate Blood Pressure 122/53 122/53 122/53 O2 Sat by Pulse 100 100 100 Oximetry 07/25/16 07/25/16 07/25/16 02:46 03:00 03:16 Temperature Pulse Rate 66 64 64 Pulse Rate [ Apical] Respiratory 16 17 17 Rate Blood Pressure 122/53 121/52 121/52 O2 Sat by Pulse 100 100 100 Oximetry 07/25/16 07/25/16 07/25/16 03:30 03:46 04:00 Temperature Pulse Rate 65 65 64 Pulse Rate [ Apical] Respiratory 16 18 15 Rate Blood Pressure 121/52 121/52 121/51 O2 Sat by Pulse 100 100 100 Oximetry 07/25/16 07/25/16 07/25/16 04:16 04:30 04:35 Temperature Pulse Rate 67 67 Pulse Rate [ Apical] Respiratory 16 16 12 Rate Blood Pressure 121/51 121/51 O2 Sat by Pulse 100 100 99 Oximetry 07/25/16 07/25/16 07/25/16 04:46 05:00 05:16 Temperature Pulse Rate 68 71 68 Pulse Rate [ Apical] Respiratory 15 15 15 Rate Blood Pressure 121/51 137/62 137/62 O2 Sat by Pulse 100 100 100 Oximetry 07/25/16 07/25/16 07/25/16 05:30 05:46 06:00 Temperature Pulse Rate 67 67 65 Pulse Rate [ Apical] Respiratory 15 20 17 Rate Blood Pressure 137/62 137/62 126/52 O2 Sat by Pulse 100 100 100 Oximetry 07/25/16 07/25/16 07/25/16 06:16 06:30 06:46 Temperature Pulse Rate 64 67 65 Pulse Rate [ Apical] Respiratory 16 19 15 Rate Blood Pressure 126/52 126/52 126/52 O2 Sat by Pulse 100 100 100 Oximetry 07/25/16 07/25/16 07/25/16 07:00 07:16 07:30 Temperature Pulse Rate 63 64 65 Pulse Rate [ Apical] Respiratory 18 15 14 Rate Blood Pressure 135/51 135/51 135/51 O2 Sat by Pulse 100 100 100 Oximetry 07/25/16 07/25/16 07/25/16 07:46 08:00 08:16 Temperature 97 F L Pulse Rate 64 63 66 Pulse Rate [ Apical] Respiratory 18 18 18 Rate Blood Pressure 135/51 130/53 130/53 O2 Sat by Pulse 100 100 100 Oximetry 07/25/16 07/25/16 07/25/16 08:28 08:30 08:46 Temperature Pulse Rate 69 67 Pulse Rate [ Apical] Respiratory 20 19 Rate Blood Pressure 130/53 130/53 O2 Sat by Pulse 100 100 100 Oximetry 07/25/16 07/25/16 07/25/16 08:51 09:00 09:16 Temperature Pulse Rate 67 65 Pulse Rate [ 67 Apical] Respiratory 20 20 17 Rate Blood Pressure 130/53 144/61 O2 Sat by Pulse 100 100 100 Oximetry 07/25/16 07/25/16 07/25/16 09:30 09:46 10:00 Temperature Pulse Rate 67 73 71 Pulse Rate [ Apical] Respiratory 17 17 19 Rate Blood Pressure 130/53 130/53 150/64 O2 Sat by Pulse 100 100 100 Oximetry 07/25/16 07/25/16 07/25/16 10:09 10:16 10:30 Temperature Pulse Rate 70 70 71 Pulse Rate [ Apical] Respiratory 14 11 L Rate Blood Pressure 150/64 150/64 150/64 O2 Sat by Pulse 100 100 Oximetry 07/25/16 07/25/16 10:46 10:54 Temperature Pulse Rate 71 71 Pulse Rate [ Apical] Respiratory 19 19 Rate Blood Pressure 150/64 150/64 O2 Sat by Pulse 100 100 Oximetry General appearance: Present: no acute distress, well-nourished - EENT Eyes: PERRL, EOM intact ENT: hearing intact, clear oral mucosa Ears: bilateral: normal - Neck Neck: supple, normal ROM - Respiratory Respiratory effort: normal Respiratory: bilateral: CTA - Breasts Breasts: normal - Cardiovascular Rhythm: regular Heart Sounds: Present: S1 & S2. Absent: gallop, rub Extremities: pulses intact, No edema, normal color, Full ROM - Gastrointestinal General gastrointestinal: Present: soft, non-tender, non-distended, normal bowel sounds - Genitourinary Female genitourinary: normal - Integumentary Integumentary: clear, warm, dry - Musculoskeletal Musculoskeletal: 1, strength equal bilaterally - Neurologic Neurologic: CNII-XII intact, moves all extremities - Psychiatric Psychiatric: memory intact, appropriate mood/affect, intact judgment & insight - Labs CBC & Chem 7: 07/25/16 04:14 07/25/16 04:14 Labs: Abnormal lab results 07/25/16 07/25/16 07/25/16 Range/Units 00:57 04:14 04:14 RBC 2.88 L (3.65-5.03) M/mm3 Hgb 8.7 L (10.1-14.3) gm/dl Hct 25.7 L (30.3-42.9) % Carbon Dioxide 19 L (22-30) mmol/L BUN 19 H (7-17) mg/dL Creatinine 3.1 H (0.7-1.2) mg/dL Glucose 237 H (65-100) mg/dL POC Glucose 279 H (70-105) Calcium 8.0 L (8.4-10.2) mg/dL 07/25/16 Range/Units 11:50 RBC (3.65-5.03) M/mm3 Hgb (10.1-14.3) gm/dl Hct (30.3-42.9) % Carbon Dioxide (22-30) mmol/L BUN (7-17) mg/dL Creatinine (0.7-1.2) mg/dL Glucose (65-100) mg/dL POC Glucose 209 H (70-105) Calcium (8.4-10.2) mg/dL
[2016-07-25] MEDS ORDERED: NORVASC PO SCH (13:00)
[2016-07-25] MEDS: IMDUR PO SCH (13:34)
--- NOTE | 2016-07-25 17:27 | Consultation ---
History of Present Illness - Reason for Consult Consult date: 07/25/16 acute renal failure - History of Present Illness Mrs. Childress is a 70yo who presented to the ED with chest pain 10/10 and chest pain. Upon arrival to the ED, her BP was reportedly 280/218. She was admitted to the ICU and placed on a cardene gtt. BP control has improved, and she has been transferred to the floor. At present, she denies chest pain and SOB. She does c/o leg edema. She denies cough, fever. Past History Past Medical History: acute TN, CAD, GERD, heart failure, hypertension, hyperlipidemia, renal failure (CKD), other (aortic valve regurg) Past Surgical History: appendectomy, cholecystectomy Social history: , lives with family, smoking (no smoking), alcohol abuse (no alcohol), full code Family history: diabetes, hypertension Medications and Allergies Allergies Allergy/AdvReac Type Severity Reaction Status Date / Time hydralazine Allergy Nausea Verified 07/24/16 14:37 iodine Allergy Itching Verified 07/24/16 14:37 morphine Allergy Nausea Verified 07/24/16 14:37 shellfish derived Allergy Swelling Verified 07/24/16 14:37 Sulfa (Sulfonamide Allergy Rash Verified 07/24/16 14:37 Antibiotics) Home Medications Medication Instructions Recorded Confirmed Last Taken Type Dexlansoprazole [Dexilant] 60 mg PO QDAY #30 04/06/14 07/25/16 1 Week Ago Rx Potassium Chloride [Klor-Con 8] 8 meq PO QDAY #30 tablet 04/06/14 07/25/16 1 Day Ago Rx cloNIDine [Catapres] 0.2 mg PO TID #90 tablet 04/06/14 07/25/16 1 Day Ago Rx Clopidogrel [Plavix] 75 mg PO QDAY #30 tablet 07/20/15 07/25/16 1 Week Ago Rx LORazepam [Ativan] 1 mg PO QHS #30 tablet 07/20/15 07/25/16 07/20/16 Rx Labetalol [Normodyne TAB] 200 mg PO TID #90 tablet 07/20/15 07/25/16 1 Day Ago Rx Latanoprost 0.005% [Xalatan 0.005%] 1 drops OU QPM bottle 07/20/15 07/25/16 1 Week Ago Rx amLODIPine [Norvasc] 10 mg PO QDAY #30 tablet 07/20/15 07/25/16 02/07/16 08:00 Rx Aspirin BABY CHEW TAB 81 mg PO 3XW 02/07/16 07/25/16 01/26/16 History 81mg Brimonidine 0.15% [Alphagan P 1 drop INTRAOCULA TID 02/07/16 07/25/16 3 Days Ago History 0.15%] Bumetanide [Bumex] 1 mg PO DAILY 02/07/16 07/25/16 02/06/16 History 1mg Cholecalciferol (Vitamin D3) 1,000 units PO DAILY 02/07/16 07/25/16 07/22/16 History Insulin Aspart Prot/Aspart 40 - 45 units SQ BID 02/07/16 07/25/16 1 Week Ago History [NovoLOG Mix 70/30 VIAL] Linaclotide [Linzess] 145 mcg PO DAILY 02/07/16 07/25/16 2 Weeks Ago History Pravastatin Sodium [Pravastatin] 40 mg PO HS 02/07/16 07/25/16 3 Months Ago History diphenhydrAMINE [Benadryl CAP] 50 mg PO Q8H 02/07/16 07/25/16 02/07/16 06:00 History predniSONE [Deltasone] 50 mg PO Q8H 02/07/16 07/25/16 02/07/16 History 0600 traMADol [Ultram] 50 mg PO Q4HR PRN #20 tablet 04/04/16 07/25/16 01/07/16 Rx Active Meds: Active Medications Acetaminophen (Tylenol) 650 mg PO Q4H PRN PRN Reason: Pain MILD(1-3)/Fever >100.5/VIGIL Amlodipine Besylate (Norvasc) 10 mg PO QDAY [facility] Last Admin: 07/25/16 13:21 Dose: 10 mg Aspirin (Halfprin Ec) 81 mg PO QDAY [facility] Last Admin: 07/25/16 10:08 Dose: 81 mg Bisacodyl (Dulcolax) 10 mg PA QDAY PRN PRN Reason: Constipation unrelieved by MOM Clonidine HCl (Catapres) 0.2 mg PO TID [facility] Last Admin: 07/25/16 13:21 Dose: 0.2 mg Clopidogrel Bisulfate (Plavix) 75 mg PO QDAY [facility] Last Admin: 07/25/16 10:08 Dose: 75 mg Heparin Sodium (Porcine) (Heparin) 5,000 unit SUB-Q Q8HR [facility] Last Admin: 07/25/16 13:23 Dose: 5,000 unit Nicardipine/Sodium Chloride (Cardene Drip 40 Mg/200 Ml) 200 mls @ 25 mls/hr IV TITR BARBARA; 5 MG/HR PRN Reason: Protocol Last Titration: 07/25/16 13:30 Dose: 0 mg/hr Insulin Human Regular (Novolin R) 0 units SUB-Q ACHS [facility] PRN Reason: Protocol Last Admin: 07/25/16 16:37 Dose: 4 units Isosorbide Mononitrate (Imdur) 120 mg PO QDAY [facility] Last Admin: 07/25/16 13:34 Dose: 120 mg Labetalol HCl (Normodyne) 200 mg PO TID [facility] Last Admin: 07/25/16 13:20 Dose: 200 mg Nitroglycerin (Nitro-Bid 2%) 0.5 inch TP QIDNTG [facility] PRN Reason: Protocol Last Admin: 07/25/16 13:22 Dose: 0.5 inch Ondansetron HCl (Zofran) 4 mg IV Q8H PRN PRN Reason: nausea or vomiting Sodium Chloride (Sodium Chloride Flush Syringe 10 Ml) 10 ml IV PRN PRN PRN Reason: LINE FLUSH Review of Systems Constitutional: no fever, no chills, no sweats Cardiovascular: chest pain, edema, no shortness of breath Respiratory: no cough, no shortness of breath Gastrointestinal: constipation, no abdominal pain, no nausea, no vomiting, no diarrhea Genitourinary Female: no dysuria, no hematuria Integumentary: no rash Neurological: no headaches Exam - Vital Signs Vital signs: Vital Signs Temp Pulse Resp BP Pulse Ox 98.4 F 81 22 282/218 100 07/24/16 14:25 07/24/16 14:25 07/24/16 14:25 07/24/16 14:25 07/24/16 14:25 Results - Lab Results 07/25/16 04:14 07/26/16 10:32 Most recent lab results Calcium 8.0 mg/dL (8.4-10.2) L 07/25/16 04:14 Assessment and Plan Impression: * Acute kidney injury on stage IV chronic kidney disease - b/l SCr 2.3-2.5mg/dL * Accelerated hypertension * Chest pain * Anemia likely secondary to CKD * Plan: * No acute indication for hemodialysis; unsure if patient's renal function has progressively deteriorated and this is a new baseline * Adjust antiHTN medications for BP control * Obtain urine studies * Avoid potential nephrotoxins * Dose medications for renal function
[2016-07-25] MEDS: TYLENOL PO PRN (22:27)
[2016-07-26] MEDS: HEPARIN SUB-Q SCH ×3 (06:53→22:14)
[2016-07-26] MEDS: NITRO-BID 2% TP SCH ×2 (06:53→09:26)
[2016-07-26] MEDS ORDERED: NORMODYNE PO SCH (08:00)
[2016-07-26] MEDS ORDERED: CATAPRES PO SCH (08:00)
[2016-07-26] MEDS: CATAPRES PO SCH ×3 (09:17→22:25)
[2016-07-26] MEDS: NORMODYNE PO SCH ×2 (09:18→22:15)
[2016-07-26] MEDS: IMDUR PO SCH (09:19)
[2016-07-26] MEDS: PROTONIX PO SCH (09:24)
[2016-07-26] MEDS: HALFPRIN EC PO SCH (09:24)
[2016-07-26] MEDS: NORVASC PO SCH (09:24)
[2016-07-26] MEDS: BUMEX PO SCH (09:24)
[2016-07-26] MEDS: BENADRYL PO SCH ×2 (09:25→17:54)
[2016-07-26] MEDS: KLOR-CON 8 PO SCH (09:25)
[2016-07-26] MEDS: ALPHAGAN P 0.15% OU SCH ×3 (09:28→22:25)
[2016-07-26] MEDS: PLAVIX PO SCH (09:28)
[2016-07-26] MEDS ORDERED: INSULIN ASPART PROTAMINE SQ SCH (10:00)
[2016-07-26] MEDS ORDERED: [UNRECOGNIZED DRUG - OTHER] SQ SCH (10:00)
[2016-07-26] MEDS ORDERED: NON-FORMULARY (Aspirin Baby Chew Tab 81 MG) PO SCH (10:00)
[2016-07-26] MEDS ORDERED: PLAVIX PO SCH (10:00)
[2016-07-26] MEDS ORDERED: NON-FORMULARY (Dexlansoprazole [Dexilant] 60 MG) PO SCH (10:00)
[2016-07-26 11:26] LABS: BUN/Creatinine Ratio 6.25; Calcium 7.9 mg/dL (8.4-10.2); Chloride 97.3 mmol/L (98-107); Potassium 4.1 mmol/L (3.6-5.0)
--- NOTE | 2016-07-26 12:06 | Progress Note ---
Assessment and Plan Reduce Imdur to 60 mg daily. Further optimization of her antihypertensive regimen. - Patient Problems (1) Accelerated hypertension Current Visit: Yes Status: Acute (2) Chest pain Current Visit: Yes Status: Acute Qualifiers: Chest pain type: unspecified Qualified Code(s): R07.9 - Chest pain, unspecified (3) Acute on chronic diastolic heart failure Current Visit: Yes Status: Acute (4) Acute kidney injury superimposed on CKD Current Visit: Yes Status: Deleted (5) Stented coronary artery Current Visit: Yes Status: Chronic (6) CAD (coronary artery disease) Current Visit: Yes Status: Chronic Qualifiers: Coronary Disease-Associated Artery/Lesion type: [place] artery (7) Anemia Current Visit: Yes Status: Chronic Qualifiers: Other causes of anemia: chronic disease, kidney Subjective Date of service: 07/26/16 Principal diagnosis: Chest pain, Acute on chronic DHF, Accelerated HTN, Acute on CKD Interval history: She claims that her chest pain is better. However, she complains of headache this morning. I wonder if this is related to increasing the dose long-acting nitrates. Objective Vital Signs Last Vital Signs Temp 97.7 F 07/26/16 11:54 Pulse 70 07/26/16 11:54 Resp 18 07/26/16 11:54 BP 181/79 07/26/16 11:54 Pulse Ox 98 07/26/16 11:54 - Physical Examination General: No Apparent Distress HEENT: Positive: EOMI, Normocephaly, Mucus Membranes Moist Neck: Positive: neck supple, trachea midline, JVD/HJR Cardiac: Positive: Reg Rate and Rhythm, S1/S2 Lungs: Positive: clear to auscultation Neuro: Positive: Grossly Intact Abdomen: Positive: Soft, Active Bowel Sounds. Negative: Tender Skin: Positive: Clear. Negative: Rash Musculoskeletal: Normal Range of Motion Extremities: Present: +1 Edema (legs) - Labs and Meds Comprehensive Metabolic Panel 07/26/16 Range/Units 10:32 Sodium 133 L (137-145) mmol/L Potassium 4.1 (3.6-5.0) mmol/L Chloride 97.3 L (98-107) mmol/L Carbon Dioxide 18 L (22-30) mmol/L BUN 20 H (7-17) mg/dL Creatinine 3.2 H (0.7-1.2) mg/dL Glucose 274 H (65-100) mg/dL Calcium 7.9 L (8.4-10.2) mg/dL - Telemetry EKG Rhythm: Sinus Rhythm
--- NOTE | 2016-07-26 12:12 | Progress Note ---
Assessment and Plan Assessment and plan: - (1) Accelerated hypertension- uncontrolled; increase clonidine and cont other med; monitor 2. CAD with Chest pain-s/p remote stent ; AMI ruled out based on negative CE ; refused stress testing; cont meds; imdur reduced as per cardiology due to complaint of headache 3. Acute on chronic diastolic heart failure- compensated. cont current manx; on bumex 4. Acute kidney injury superimposed on CKD due to vasomotor nephropathy- improving; monitor 5. Anemia of chronic d/o- acute fall in H/H; monitor H/H; occult blood 6. DM- cont current insulin regime 7. DVT prophylaxis- d/c heparin; acute fall in H/h; SCD History Interval history: f/u hypertension urgency; chest pain Patient seen at the bedside; no complaints; no chest pain Hospitalist Physical - Constitutional Vitals: Temp Pulse Resp BP Pulse Ox 97.7 F 70 18 181/79 98 07/26/16 11:54 07/26/16 11:54 07/26/16 11:54 07/26/16 11:54 07/26/16 11:54 General appearance: Present: no acute distress, well-nourished - EENT Eyes: Present: PERRL, EOM intact. Absent: scleral icterus, conjunctival injection ENT: hearing intact, clear oral mucosa, no oropharyngeal erythema, no poor dentition - Neck Neck: Present: supple. Absent: enlarged thyroid, masses or JVD - Respiratory Respiratory effort: normal Respiratory: negative: diminished, rales, rhonchi, wheezing - Cardiovascular Rhythm: regular Heart Sounds: Present: S1 & S2 - Extremities Extremities: no ischemia, pulses intact, pulses symmetrical, No edema Peripheral Pulses: within normal limits - Abdominal General gastrointestinal: soft, non-tender, non-distended, normal bowel sounds - Integumentary Integumentary: Present: clear - Psychiatric Psychiatric: appropriate mood/affect, intact judgment & insight, cooperative - Neurologic Neurologic: CNII-XII intact, moves all extremities Results - Labs CBC & Chem 7: 07/25/16 04:14 07/26/16 10:32 Labs: Laboratory Last Values WBC 6.2 K/mm3 (4.5-11.0) 07/25/16 04:14 RBC 2.88 M/mm3 (3.65-5.03) L 07/25/16 04:14 Hgb 8.7 gm/dl (10.1-14.3) L 07/25/16 04:14 Hct 25.7 % (30.3-42.9) L 07/25/16 04:14 MCV 89 fl (79-97) 07/25/16 04:14 MCH 30 pg (28-32) 07/25/16 04:14 MCHC 34 % (30-34) 07/25/16 04:14 RDW 14.1 % (13.2-15.2) 07/25/16 04:14 Plt Count 324 K/mm3 (140-440) 07/25/16 04:14 Lymph % (Auto) 32.7 % (13.4-35.0) 07/25/16 04:14 Heard % (Auto) 7.2 % (0.0-7.3) 07/25/16 04:14 Eos % (Auto) 3.7 % (0.0-4.3) 07/25/16 04:14 Baso % (Auto) 0.9 % (0.0-1.8) 07/25/16 04:14 Lymph # 2.0 K/mm3 (1.2-5.4) 07/25/16 04:14 Heard # 0.4 K/mm3 (0.0-0.8) 07/25/16 04:14 Eos # 0.2 K/mm3 (0.0-0.4) 07/25/16 04:14 Baso # 0.1 K/mm3 (0.0-0.1) 07/25/16 04:14 Seg Neutrophils % 55.5 % (40.0-70.0) 07/25/16 04:14 Seg Neutrophils # 3.5 K/mm3 (1.8-7.7) 07/25/16 04:14 PT 13.9 Sec. (12.2-14.9) 07/24/16 14:54 INR 1.08 (0.87-1.13) 07/24/16 14:54 APTT 32.6 Sec. (24.2-36.6) 07/24/16 14:54 Sodium 133 mmol/L (137-145) L 07/26/16 10:32 Potassium 4.1 mmol/L (3.6-5.0) 07/26/16 10:32 Chloride 97.3 mmol/L (98-107) L 07/26/16 10:32 Carbon Dioxide 18 mmol/L (22-30) L 07/26/16 10:32 Anion Gap 22 mmol/L 07/26/16 10:32 BUN 20 mg/dL (7-17) H 07/26/16 10:32 Creatinine 3.2 mg/dL (0.7-1.2) H 07/26/16 10:32 Estimated GFR 17 ml/min 07/26/16 10:32 BUN/Creatinine Ratio 6.25 % 07/26/16 10:32 Glucose 274 mg/dL (65-100) H 07/26/16 10:32 POC Glucose 212 (70-105) H 07/26/16 08:36 Calcium 7.9 mg/dL (8.4-10.2) L 07/26/16 10:32 Troponin T 0.015 ng/mL (0.00-0.029) 07/24/16 20:39 NT-Pro-B Natriuret Pep 67017 pg/mL (0-900) H 07/24/16 15:02
--- NOTE | 2016-07-26 12:46 | Progress Note ---
Assessment and Plan Impression: * Acute kidney injury on stage IV chronic kidney disease - b/l SCr 2.3-2.5mg/dL * Accelerated hypertension * Chest pain * Anemia likely secondary to CKD Plan: * No acute indication for hemodialysis; unsure if patient's renal function has progressively deteriorated due to uncontrolled hypertension and this is a new baseline * Note adjustments of antiHTN medications made by cardiology today * Will obtain renin:olesya * Check renal artery doppler * Avoid potential nephrotoxins * Dose medications for renal function Subjective Date of service: 07/26/16 Principal diagnosis: Chest pain, Acute on chronic DHF, Accelerated HTN, Acute on CKD Interval history: Patient reports intermittent SOB. Objective - Vital Signs Vital signs: Vital Signs - 12hr 07/26/16 07/26/16 07/26/16 01:04 05:42 09:17 Temperature 98.2 F 98.1 F Pulse Rate [ 74 64 Left Dorsalis Pedis] Pulse Rate [ Left Radial] Pulse Rate [ Right Radial] Respiratory 18 20 Rate Blood Pressure 187/78 Blood Pressure [Left Arm] Blood Pressure 187/84 164/74 [Right Arm] O2 Sat by Pulse 97 98 Oximetry 07/26/16 07/26/16 07/26/16 09:25 10:33 11:54 Temperature 98.4 F 97.7 F Pulse Rate [ Left Dorsalis Pedis] Pulse Rate [ 70 Left Radial] Pulse Rate [ 68 Right Radial] Respiratory 20 18 Rate Blood Pressure Blood Pressure 181/79 [Left Arm] Blood Pressure 187/78 [Right Arm] O2 Sat by Pulse 96 100 98 Oximetry - General Appearance General appearance: well-developed, well-nourished EENT: ATNC Respiratory: Present: Clear to Ascultation Cardiology: regular, S1S2 Gastrointestinal: normal, no tenderness, no distended Integumentary: no rash Neurologic: other (nonfocal) Musculoskeletal: other (no edema) Psychiatric: cooperative - Lab 07/25/16 04:14 07/26/16 10:32 Most recent lab results Calcium 7.9 mg/dL (8.4-10.2) L 07/26/16 10:32
[2016-07-26] MEDS ORDERED: MINIPRESS PO SCH (13:00)
--- NOTE | 2016-07-26 14:54 | Progress Note ---
Assessment and Plan Hypertensive emergency. Symptoms improved once blood pressure under control Uncontrolled hypertension Chronic kidney disease stage IV morbid obesity Obstructive sleep apnea, suspected Recommendations Continue her hypertensive management. \May be switched slowly to oral drugs HNT at this point. Continue oxygen support as needed to maintain oximetry over 92%. Patient will need sleep study evaluation as an outpatient in order to evaluate for ongoing sleep apnea She will also benefit from PFTs since, although I think her respiratory symptoms are related to hypertension, she has prior history of asthma. Currently not on treatment Weight loss management, nutritional support DVT prophylaxis Recommend sleep study as outpatient Subjective Date of service: 07/26/16 Principal diagnosis: Chest pain, Acute on chronic DHF, Accelerated HTN, Acute on CKD Interval history: Patient feeling fairly well. No new complaints except for slight right sided chest pain. Objective Vital Signs - 12hr 07/26/16 07/26/16 07/26/16 05:42 09:17 09:25 Temperature 98.1 F 98.4 F Pulse Rate Pulse Rate [ 64 Left Dorsalis Pedis] Pulse Rate [ Left Radial] Pulse Rate [ 68 Right Radial] Respiratory 20 20 Rate Blood Pressure 187/78 Blood Pressure [Left Arm] Blood Pressure 164/74 187/78 [Right Arm] O2 Sat by Pulse 98 96 Oximetry 07/26/16 07/26/16 07/26/16 10:33 11:54 12:58 Temperature 97.7 F Pulse Rate 65 Pulse Rate [ Left Dorsalis Pedis] Pulse Rate [ 70 Left Radial] Pulse Rate [ Right Radial] Respiratory 18 Rate Blood Pressure Blood Pressure 181/79 [Left Arm] Blood Pressure [Right Arm] O2 Sat by Pulse 100 98 Oximetry 07/26/16 13:30 Temperature Pulse Rate Pulse Rate [ Left Dorsalis Pedis] Pulse Rate [ Left Radial] Pulse Rate [ Right Radial] Respiratory Rate Blood Pressure Blood Pressure [Left Arm] Blood Pressure [Right Arm] O2 Sat by Pulse 100 Oximetry Constitutional: no acute distress, other (morbidly obese) Eyes: non-icteric ENT: oropharynx moist, other (airway is Mallampati 4) Neck: supple Ascultation: Bilateral: clear Cardiovascular: regular rate and rhythm Gastrointestinal: normoactive bowel sounds, non-distended Integumentary: normal Extremities: no cyanosis, other (+1 pretibial edema) Neurologic: normal mental status, non-focal exam, CN II-XII normal Psychiatric: mood appropriate, affect normal CBC and BMP: 07/25/16 04:14 07/26/16 10:32 ABG, PT/INR, D-dimer: PT/INR, D-dimer PT 13.9 Sec. (12.2-14.9) 07/24/16 14:54 INR 1.08 (0.87-1.13) 07/24/16 14:54 Abnormal lab findings: Abnormal Labs 07/25/16 07/25/16 07/25/16 00:57 04:14 04:14 RBC 2.88 L Hgb 8.7 L Hct 25.7 L Sodium Chloride Carbon Dioxide 19 L BUN 19 H Creatinine 3.1 H Glucose 237 H POC Glucose 279 H Calcium 8.0 L 07/25/16 07/25/16 07/25/16 11:50 16:32 22:21 RBC Hgb Hct Sodium Chloride Carbon Dioxide BUN Creatinine Glucose POC Glucose 209 H 218 H 256 H Calcium 07/26/16 07/26/16 08:36 10:32 RBC Hgb Hct Sodium 133 L Chloride 97.3 L Carbon Dioxide 18 L BUN 20 H Creatinine 3.2 H Glucose 274 H POC Glucose 212 H Calcium 7.9 L
[2016-07-26] MEDS: XALATAN 0.005% OU SCH (17:55)
[2016-07-26] MEDS ORDERED: NON-FORMULARY (Pravastatin Sodium [Pravastatin] 40 MG) PO SCH (22:00)
[2016-07-26] MEDS: ZOCOR PO SCH (22:14)
[2016-07-26] MEDS: ATIVAN PO SCH (22:14)
[2016-07-27] MEDS: BENADRYL PO SCH ×3 (02:05→15:36)
[2016-07-27] MEDS ORDERED: CATAPRES PO ONE (04:55)
[2016-07-27] MEDS ORDERED: NITRO-BID 2% TP ONE (05:00)
[2016-07-27] MEDS: ALPHAGAN P 0.15% OU SCH (08:20)
[2016-07-27 08:58] LABS: Basophils % (Auto) 0.5 % (0.0-1.8); Eosinophils % (Auto) 3.7 % (0.0-4.3); Hematocrit 25.3 % (30.3-42.9); Hemoglobin 8.7 gm/dl (10.1-14.3); Mean Corpuscular HGB Conc 34 % (30-34); Mean Corpuscular Hemoglobin 31 pg (28-32); Mean Corpuscular Volume 90 fl (79-97); Platelet Count 333 K/mm3 (140-440); Red Blood Count 2.81 M/mm3 (3.65-5.03); Red Cell Distribution Width 14.6 % (13.2-15.2); White Blood Count 7.2 K/mm3 (4.5-11.0)
[2016-07-27 09:12] LABS: BUN/Creatinine Ratio 6.38; Calcium 8.6 mg/dL (8.4-10.2); Chloride 101.6 mmol/L (98-107); Potassium 4.5 mmol/L (3.6-5.0)
[2016-07-27] MEDS: KLOR-CON 8 PO SCH (09:22)
[2016-07-27] MEDS: PLAVIX PO SCH (09:25)
[2016-07-27] MEDS: HALFPRIN EC PO SCH (09:25)
[2016-07-27] MEDS: IMDUR PO SCH (09:26)
[2016-07-27] MEDS: CATAPRES PO SCH ×3 (09:27→21:16)
[2016-07-27] MEDS: NORVASC PO SCH (09:27)
[2016-07-27] MEDS: PROTONIX PO SCH (09:27)
[2016-07-27] MEDS: NORMODYNE PO SCH ×2 (09:27→21:16)
[2016-07-27] MEDS: BUMEX PO SCH (09:28)
--- NOTE | 2016-07-27 10:29 | Progress Note ---
Assessment and Plan Renal artery Doppler today. Continue other management. - Patient Problems (1) Accelerated hypertension Current Visit: Yes Status: Acute (2) Chest pain Current Visit: Yes Status: Acute Qualifiers: Chest pain type: unspecified Qualified Code(s): R07.9 - Chest pain, unspecified (3) Acute on chronic diastolic heart failure Current Visit: Yes Status: Acute (4) Acute kidney injury superimposed on CKD Current Visit: Yes Status: Deleted (5) Stented coronary artery Current Visit: Yes Status: Chronic (6) CAD (coronary artery disease) Current Visit: Yes Status: Chronic Qualifiers: Coronary Disease-Associated Artery/Lesion type: [place] artery (7) Anemia Current Visit: Yes Status: Chronic Qualifiers: Other causes of anemia: chronic disease, kidney Subjective Date of service: 07/27/16 Principal diagnosis: Chest pain, Acute on chronic DHF, Accelerated HTN, Acute on CKD Interval history: No chest pain. BP remains elevated. Objective Vital Signs Temp Pulse Pulse Pulse Pulse Resp BP 07/27/16 08:25 98.3 F 68 22 183/83 07/27/16 05:58 98.2 F 71 20 192/85 07/27/16 00:52 98.1 F 73 20 192/87 07/26/16 22:00 07/26/16 20:59 98.3 F 64 20 168/77 07/26/16 20:00 65 07/26/16 17:05 98.6 F 68 20 07/26/16 13:30 07/26/16 12:58 65 07/26/16 11:54 97.7 F 70 18 181/79 07/26/16 10:33 BP Pulse Ox 07/27/16 08:25 96 07/27/16 05:58 98 07/27/16 00:52 97 07/26/16 22:00 100 07/26/16 20:59 98 07/26/16 20:00 07/26/16 17:05 150/68 96 07/26/16 13:30 100 07/26/16 12:58 07/26/16 11:54 98 07/26/16 10:33 100 - Physical Examination General: No Apparent Distress HEENT: Positive: EOMI, Normocephaly, Mucus Membranes Moist Neck: Positive: neck supple, trachea midline, JVD/HJR Cardiac: Positive: Reg Rate and Rhythm, S1/S2 Lungs: Positive: clear to auscultation Neuro: Positive: Grossly Intact Abdomen: Positive: Soft, Active Bowel Sounds. Negative: Tender Skin: Positive: Clear. Negative: Rash Musculoskeletal: Normal Range of Motion Extremities: Absent: edema - Labs and Meds CBC 07/27/16 Range/Units 08:06 WBC 7.2 (4.5-11.0) K/mm3 RBC 2.81 L (3.65-5.03) M/mm3 Hgb 8.7 L (10.1-14.3) gm/dl Hct 25.3 L (30.3-42.9) % Plt Count 333 (140-440) K/mm3 Lymph # 2.0 (1.2-5.4) K/mm3 [place] # 0.6 (0.0-0.8) K/mm3 Eos # 0.3 (0.0-0.4) K/mm3 Baso # 0.0 (0.0-0.1) K/mm3 Comprehensive Metabolic Panel 07/26/16 07/27/16 Range/Units 10:32 08:06 Sodium 133 L 137 (137-145) mmol/L Potassium 4.1 4.5 (3.6-5.0) mmol/L Chloride 97.3 L 101.6 (98-107) mmol/L Carbon Dioxide 18 L 21 L (22-30) mmol/L BUN 20 H 23 H (7-17) mg/dL Creatinine 3.2 H 3.6 H (0.7-1.2) mg/dL Glucose 274 H 248 H (65-100) mg/dL Calcium 7.9 L 8.6 (8.4-10.2) mg/dL - Telemetry EKG Rhythm: Sinus Rhythm
--- NOTE | 2016-07-27 11:19 | Progress Note ---
Assessment and Plan Impression: * Acute kidney injury on stage IV chronic kidney disease - b/l SCr 2.3-2.5mg/dL * Accelerated hypertension * Chest pain * Anemia likely secondary to CKD Plan: * No acute indication for hemodialysis; it is likely that patient's renal function has progressively deteriorated due to uncontrolled hypertension - may be a new baseline * Continue antiHTN medications - BP improved s/p AM medications; continue to follow * Renin:olesya pending * Renal artery doppler pending * Avoid potential nephrotoxins * Dose medications for renal function Subjective Date of service: 07/27/16 Principal diagnosis: Chest pain, Acute on chronic DHF, Accelerated HTN, Acute on CKD Interval history: Patient reports that she is feeling better. Objective - Vital Signs Vital signs: Vital Signs - 12hr 07/27/16 07/27/16 07/27/16 00:52 05:58 08:25 Temperature 98.1 F 98.2 F 98.3 F Pulse Rate [ Apical] Pulse Rate [ 73 71 68 Left Dorsalis Pedis] Respiratory 20 20 22 Rate Blood Pressure 192/87 192/85 183/83 [Left Arm] O2 Sat by Pulse 97 98 96 Oximetry 07/27/16 11:09 Temperature Pulse Rate [ 66 Apical] Pulse Rate [ Left Dorsalis Pedis] Respiratory Rate Blood Pressure [Left Arm] O2 Sat by Pulse Oximetry - General Appearance General appearance: well-developed, well-nourished EENT: ATNC Respiratory: Present: Clear to Ascultation Cardiology: regular, S1S2 Gastrointestinal: normal, no tenderness, no distended Integumentary: no rash Neurologic: no focal deficit Musculoskeletal: other (no edema) Psychiatric: mood/affect appropriate, cooperative - Lab 07/27/16 08:06 07/27/16 08:06 Most recent lab results Calcium 8.6 mg/dL (8.4-10.2) 07/27/16 08:06
[2016-07-27] MEDS: LONITEN PO SCH ×2 (11:29→21:15)
--- NOTE | 2016-07-27 11:54 | Progress Note ---
Assessment and Plan Assessment and plan: - (1) Accelerated hypertension- uncontrolled; cotn clonidine and cont other med ; monitor; f/u renal / cardilology for further recommendations; for renal artery doppler today 2. CAD with Chest pain-s/p remote stent ; AMI ruled out based on negative CE ; refused stress testing; cont meds; imdur reduced as per cardiology due to complaint of headache 3. Acute on chronic diastolic heart failure- compensated. cont current manx; on bumex 4. Acute kidney injury superimposed on CKD due to vasomotor nephropathy- cr worsening today; monitor; f/u renal 5. Anemia of chronic d/o- H/H now stable after acute fall; monitor; occult blood 6. DM- cont current insulin regime 7. DVT prophylaxis- d/c heparin; acute fall in H/h; SCD History Interval history: f/u hypertension urgency; chest pain Patient seen at the bedside; no complaints; no chest pain Hospitalist Physical - Constitutional Vitals: Temp Pulse Resp BP Pulse Ox 98.3 F 66 22 183/83 96 07/27/16 08:25 07/27/16 11:09 07/27/16 08:25 07/27/16 08:25 07/27/16 08:25 General appearance: Present: no acute distress, well-nourished - EENT Eyes: Present: PERRL, EOM intact. Absent: scleral icterus, conjunctival injection ENT: hearing intact, clear oral mucosa, no oropharyngeal erythema, no poor dentition - Neck Neck: Present: supple, normal ROM. Absent: enlarged thyroid, masses or JVD - Respiratory Respiratory effort: normal Respiratory: negative: diminished, rales, rhonchi, wheezing - Cardiovascular Rhythm: regular Heart Sounds: Present: S1 & S2. Absent: gallop - Extremities Extremities: no ischemia, pulses intact, pulses symmetrical, No edema Peripheral Pulses: within normal limits - Abdominal General gastrointestinal: soft, non-tender, non-distended, normal bowel sounds - Integumentary Integumentary: Present: clear - Psychiatric Psychiatric: appropriate mood/affect, cooperative - Neurologic Neurologic: CNII-XII intact, moves all extremities Results - Labs CBC & Chem 7: 07/27/16 08:06 07/27/16 08:06 Labs: Laboratory Last Values WBC 7.2 K/mm3 (4.5-11.0) 07/27/16 08:06 RBC 2.81 M/mm3 (3.65-5.03) L 07/27/16 08:06 Hgb 8.7 gm/dl (10.1-14.3) L 07/27/16 08:06 Hct 25.3 % (30.3-42.9) L 07/27/16 08:06 MCV 90 fl (79-97) 07/27/16 08:06 MCH 31 pg (28-32) 07/27/16 08:06 MCHC 34 % (30-34) 07/27/16 08:06 RDW 14.6 % (13.2-15.2) 07/27/16 08:06 Plt Count 333 K/mm3 (140-440) 07/27/16 08:06 Lymph % (Auto) 28.0 % (13.4-35.0) 07/27/16 08:06 [place] % (Auto) 7.8 % (0.0-7.3) H 07/27/16 08:06 Eos % (Auto) 3.7 % (0.0-4.3) 07/27/16 08:06 Baso % (Auto) 0.5 % (0.0-1.8) 07/27/16 08:06 Lymph # 2.0 K/mm3 (1.2-5.4) 07/27/16 08:06 [place] # 0.6 K/mm3 (0.0-0.8) 07/27/16 08:06 Eos # 0.3 K/mm3 (0.0-0.4) 07/27/16 08:06 Baso # 0.0 K/mm3 (0.0-0.1) 07/27/16 08:06 Seg Neutrophils % 60.0 % (40.0-70.0) 07/27/16 08:06 Seg Neutrophils # 4.3 K/mm3 (1.8-7.7) 07/27/16 08:06 PT 13.9 Sec. (12.2-14.9) 07/24/16 14:54 INR 1.08 (0.87-1.13) 07/24/16 14:54 APTT 32.6 Sec. (24.2-36.6) 07/24/16 14:54 Sodium 137 mmol/L (137-145) 07/27/16 08:06 Potassium 4.5 mmol/L (3.6-5.0) 07/27/16 08:06 Chloride 101.6 mmol/L (98-107) 07/27/16 08:06 Carbon Dioxide 21 mmol/L (22-30) L 07/27/16 08:06 Anion Gap 19 mmol/L 07/27/16 08:06 BUN 23 mg/dL (7-17) H 07/27/16 08:06 Creatinine 3.6 mg/dL (0.7-1.2) H 07/27/16 08:06 Estimated GFR 15 ml/min 07/27/16 08:06 BUN/Creatinine Ratio 6.38 % 07/27/16 08:06 Glucose 248 mg/dL (65-100) H 07/27/16 08:06 POC Glucose 168 (70-105) H 07/26/16 21:44 Calcium 8.6 mg/dL (8.4-10.2) 07/27/16 08:06 Troponin T 0.015 ng/mL (0.00-0.029) 07/24/16 20:39 NT-Pro-B Natriuret Pep 63193 pg/mL (0-900) H 07/24/16 15:02
--- NOTE | 2016-07-27 14:32 | Progress Note ---
Assessment and Plan Hypertensive emergency. Symptoms improved once blood pressure under control Uncontrolled hypertension Chronic kidney disease stage IV morbid obesity Obstructive sleep apnea, suspected Recommendations Continue her hypertensive management. \May be switched slowly to oral drugs HNT at this point. Continue oxygen support as needed to maintain oximetry over 92%. Patient will need sleep study evaluation as an outpatient in order to evaluate for ongoing sleep apnea She will also benefit from PFTs since, although I think her respiratory symptoms are related to hypertension, she has prior history of asthma. Currently not on treatment Weight loss management, nutritional support DVT prophylaxis Chest x-ray in the morning Recommend sleep study as outpatient Subjective Date of service: 07/27/16 Principal diagnosis: Chest pain, Acute on chronic DHF, Accelerated HTN, Acute on CKD Interval history: Patient feeling fairly well. No new complaints except for slight right sided chest pain. Plain of mild chest congestion Objective Vital Signs - 12hr 07/27/16 07/27/16 07/27/16 05:58 08:25 10:00 Temperature 98.2 F 98.3 F Pulse Rate [ Apical] Pulse Rate [ 71 68 Left Dorsalis Pedis] Respiratory 20 22 Rate Blood Pressure 192/85 183/83 [Left Arm] O2 Sat by Pulse 98 96 99 Oximetry 07/27/16 07/27/16 11:09 11:57 Temperature 97.3 F L Pulse Rate [ 66 Apical] Pulse Rate [ 62 Left Dorsalis Pedis] Respiratory 22 Rate Blood Pressure 167/75 [Left Arm] O2 Sat by Pulse 96 Oximetry Constitutional: no acute distress, other (morbidly obese) Eyes: non-icteric ENT: oropharynx moist, other (airway is Mallampati 4) Neck: supple Ascultation: Bilateral: clear Cardiovascular: regular rate and rhythm Gastrointestinal: normoactive bowel sounds, non-distended Integumentary: normal Extremities: no cyanosis, other (+1 pretibial edema) Neurologic: normal mental status, non-focal exam, CN II-XII normal Psychiatric: mood appropriate, affect normal CBC and BMP: 07/27/16 08:06 07/27/16 08:06 ABG, PT/INR, D-dimer: PT/INR, D-dimer PT 13.9 Sec. (12.2-14.9) 07/24/16 14:54 INR 1.08 (0.87-1.13) 07/24/16 14:54 Abnormal lab findings: Abnormal Labs 07/25/16 07/25/16 07/25/16 00:57 04:14 04:14 RBC 2.88 L Hgb 8.7 L Hct 25.7 L [place] % (Auto) Sodium Chloride Carbon Dioxide 19 L BUN 19 H Creatinine 3.1 H Glucose 237 H POC Glucose 279 H Calcium 8.0 L 07/25/16 07/25/16 07/25/16 11:50 16:32 22:21 RBC Hgb Hct [place] % (Auto) Sodium Chloride Carbon Dioxide BUN Creatinine Glucose POC Glucose 209 H 218 H 256 H Calcium 07/26/16 07/26/16 07/26/16 08:36 10:32 11:53 RBC Hgb Hct [place] % (Auto) Sodium 133 L Chloride 97.3 L Carbon Dioxide 18 L BUN 20 H Creatinine 3.2 H Glucose 274 H POC Glucose 212 H 296 H Calcium 7.9 L 07/26/16 07/26/16 07/27/16 17:18 21:44 08:06 RBC 2.81 L Hgb 8.7 L Hct 25.3 L [place] % (Auto) 7.8 H Sodium Chloride Carbon Dioxide BUN Creatinine Glucose POC Glucose 142 H 168 H Calcium 07/27/16 08:06 RBC Hgb Hct [place] % (Auto) Sodium Chloride Carbon Dioxide 21 L BUN 23 H Creatinine 3.6 H Glucose 248 H POC Glucose Calcium
--- NOTE | 2016-07-27 15:15 | XRay Report ---
Portable chest: There is mild blunting of the lateral costophrenic angle. There is a hazy increased opacity of the lung at this location. The lungs otherwise are clear the mediastinal contour is unremarkable. These findings are unchanged compared to prior study of July 24, 2016. Impression: Left basilar findings. No interval change.
[2016-07-27] MEDS: HEPARIN SUB-Q SCH ×2 (15:34→21:21)
[2016-07-27] MEDS: TYLENOL PO PRN (15:35)
[2016-07-27] MEDS: ZOCOR PO SCH (21:16)
[2016-07-28] MEDS ORDERED: D50W (25GM) IV ONE (00:21)
[2016-07-28] MEDS ORDERED: D50W (25GM) IV PRN (00:28)
[2016-07-28] MEDS: HEPARIN SUB-Q SCH ×3 (05:55→22:16)
[2016-07-28] MEDS: ALPHAGAN P 0.15% OU SCH ×4 (05:56→22:18)
[2016-07-28] MEDS: BENADRYL PO SCH ×3 (05:57→17:06)
[2016-07-28] MEDS: ATIVAN PO SCH ×2 (06:10→22:17)
--- NOTE | 2016-07-28 08:01 | Vascular Lab Report ---
RENAL ARTERY DUPLEX EXAM: REASON FOR EXAM: Renal artery stenosis. NOTE: Visualization is technically adequate. COMMENTS ON THE AORTA: The aorta is patent. Normal flow velocities are observed. No aneurysmal dilatation is noted. Mild atherosclerotic change is identified. The celiac artery is patent with normal flow velocity. The superior mesenteric artery is patent with normal flow velocity. COMMENTS ON THE RIGHT KIDNEY: The kidney measures 10.3 centimeters in greatest dimension. No obvious parenchymal abnormalities are noted. The renal artery is patent. Maximum systolic velocity is 121 cm/sec. This finding is consistent with less than 60% diameter reduction. Renal aortic index is 1.38. This finding is consistent with less than 60% diameter reduction. Overall findings are consistent with less than 60% diameter reduction in the renal artery. COMMENTS ON THE LEFT KIDNEY: The kidney measures 10.7 centimeters in greatest dimension. No obvious parenchymal abnormalities are noted. The renal artery is patent. Maximum systolic velocity is 61 cm/sec. This finding is consistent with less than 60% diameter reduction. Renal aortic index is 0.69. This finding is consistent with less than 60% diameter reduction. Overall findings are consistent with less than 60% diameter reduction in the renal artery. IMPRESSION: RIGHT KIDNEY: Less than 60% diameter reduction in the renal artery. LEFT KIDNEY: Less than 60% diameter reduction in the renal artery.
[2016-07-28 08:10] LABS: BUN/Creatinine Ratio 6.66; Calcium 8.5 mg/dL (8.4-10.2); Chloride 101.3 mmol/L (98-107); Potassium 5.1 mmol/L (3.6-5.0)
[2016-07-28] MEDS: NORMODYNE PO SCH ×2 (09:50→22:17)
[2016-07-28] MEDS: NORVASC PO SCH (09:50)
[2016-07-28] MEDS: LONITEN PO SCH ×2 (10:03→22:16)
[2016-07-28] MEDS: PLAVIX PO SCH (10:03)
[2016-07-28] MEDS: CATAPRES PO SCH ×3 (10:04→22:17)
[2016-07-28] MEDS: PROTONIX PO SCH (10:04)
[2016-07-28] MEDS: HALFPRIN EC PO SCH (10:04)
[2016-07-28] MEDS: BUMEX PO SCH (10:05)
[2016-07-28] MEDS: IMDUR PO SCH (10:05)
[2016-07-28] MEDS: KLOR-CON 8 PO SCH (10:06)
--- NOTE | 2016-07-28 11:51 | Progress Note ---
Assessment and Plan Stable cardiac status. Continue current management. Will adjust BP meds subsequently as necessary. - Patient Problems (1) Accelerated hypertension Current Visit: Yes Status: Acute (2) Chest pain Current Visit: Yes Status: Resolved Qualifiers: Chest pain type: unspecified Qualified Code(s): R07.9 - Chest pain, unspecified (3) Acute on chronic diastolic heart failure Current Visit: Yes Status: Acute (4) Acute kidney injury superimposed on CKD Current Visit: Yes Status: Deleted (5) Stented coronary artery Current Visit: Yes Status: Chronic (6) CAD (coronary artery disease) Current Visit: Yes Status: Chronic Qualifiers: Coronary Disease-Associated Artery/Lesion type: [place] artery (7) Anemia Current Visit: Yes Status: Chronic Qualifiers: Other causes of anemia: chronic disease, kidney Subjective Date of service: 07/28/16 Principal diagnosis: Chest pain, Acute on chronic DHF, Accelerated HTN, Acute on CKD Interval history: No chest pain. She feels better overall. Objective Vital Signs Temp Pulse Pulse Resp BP BP Pulse Ox 07/28/16 10:04 170/72 07/28/16 07:56 97.3 F L 69 22 170/72 97 07/28/16 05:11 98 F 86 18 132/71 94 07/28/16 05:04 60 07/28/16 00:32 97.6 F 58 L 20 110/68 94 07/27/16 21:16 60 133/66 07/27/16 20:50 59 L 07/27/16 19:44 98 F 60 18 133/66 97 07/27/16 15:01 70 07/27/16 11:57 97.3 F L 62 22 167/75 96 - Physical Examination General: No Apparent Distress HEENT: Positive: EOMI, Normocephaly, Mucus Membranes Moist Neck: Positive: neck supple, trachea midline, JVD/HJR Cardiac: Positive: Reg Rate and Rhythm, S1/S2 Lungs: Positive: clear to auscultation Neuro: Positive: Grossly Intact Abdomen: Positive: Soft, Active Bowel Sounds. Negative: Tender Skin: Positive: Clear. Negative: Rash Musculoskeletal: Normal Range of Motion Extremities: Absent: edema - Labs and Meds Comprehensive Metabolic Panel 07/28/16 Range/Units 06:26 Sodium 136 L (137-145) mmol/L Potassium 5.1 H (3.6-5.0) mmol/L Chloride 101.3 (98-107) mmol/L Carbon Dioxide 19 L (22-30) mmol/L BUN 28 H (7-17) mg/dL Creatinine 4.2 H (0.7-1.2) mg/dL Glucose 180 H (65-100) mg/dL Calcium 8.5 (8.4-10.2) mg/dL
[2016-07-28] MEDS ORDERED: KAYEXALATE PO ONE (12:38)
--- NOTE | 2016-07-28 12:40 | Progress Note ---
Assessment and Plan Assessment and plan: - (1) Accelerated hypertension- uncontrolled; cotn clonidine and cont other med ; monitor; f/u renal / cardilology for further recommendations 2. CAD with Chest pain-s/p remote stent ; AMI ruled out based on negative CE ; refused stress testing; cont meds; imdur reduced as per cardiology due to complaint of headache 3. Acute on chronic diastolic heart failure- compensated. cont current manx; on bumex 4. Acute kidney injury superimposed on CKD due to vasomotor nephropathy- cr continues to increase today; monitor; f/u renal for further recommendations; mild hyperkalemia- kayexalate; repeat;level in the a.m 5. Anemia of chronic d/o- H/H now stable after acute fall; monitor; occult blood 6. DM- cont current insulin regime 7. DVT prophylaxis- d/c heparin; acute fall in H/h; SCD History Interval history: f/u hypertension urgency; chest pain Patient seen at the bedside; no complaints; no chest pain Hospitalist Physical - Constitutional Vitals: Temp Pulse Resp BP Pulse Ox 97.3 F L 69 22 170/72 97 07/28/16 07:56 07/28/16 07:56 07/28/16 07:56 07/28/16 10:04 07/28/16 07:56 General appearance: Present: no acute distress, well-nourished - EENT Eyes: Present: PERRL, EOM intact. Absent: scleral icterus, conjunctival injection ENT: hearing intact, clear oral mucosa, no oropharyngeal erythema, no poor dentition - Neck Neck: Present: supple, normal ROM. Absent: enlarged thyroid, masses or JVD - Respiratory Respiratory effort: normal Respiratory: negative: diminished, rales, rhonchi, wheezing - Cardiovascular Rhythm: regular Heart Sounds: Present: S1 & S2. Absent: gallop - Extremities Extremities: no ischemia, pulses intact, pulses symmetrical, No edema Peripheral Pulses: within normal limits - Abdominal General gastrointestinal: soft, non-tender, non-distended - Integumentary Integumentary: Present: clear - Psychiatric Psychiatric: appropriate mood/affect, intact judgment & insight - Neurologic Neurologic: CNII-XII intact Results - Labs CBC & Chem 7: 07/27/16 08:06 07/28/16 06:26 Labs: Laboratory Last Values WBC 7.2 K/mm3 (4.5-11.0) 07/27/16 08:06 RBC 2.81 M/mm3 (3.65-5.03) L 07/27/16 08:06 Hgb 8.7 gm/dl (10.1-14.3) L 07/27/16 08:06 Hct 25.3 % (30.3-42.9) L 07/27/16 08:06 MCV 90 fl (79-97) 07/27/16 08:06 MCH 31 pg (28-32) 07/27/16 08:06 MCHC 34 % (30-34) 07/27/16 08:06 RDW 14.6 % (13.2-15.2) 07/27/16 08:06 Plt Count 333 K/mm3 (140-440) 07/27/16 08:06 Lymph % (Auto) 28.0 % (13.4-35.0) 07/27/16 08:06 [place] % (Auto) 7.8 % (0.0-7.3) H 07/27/16 08:06 Eos % (Auto) 3.7 % (0.0-4.3) 07/27/16 08:06 Baso % (Auto) 0.5 % (0.0-1.8) 07/27/16 08:06 Lymph # 2.0 K/mm3 (1.2-5.4) 07/27/16 08:06 [place] # 0.6 K/mm3 (0.0-0.8) 07/27/16 08:06 Eos # 0.3 K/mm3 (0.0-0.4) 07/27/16 08:06 Baso # 0.0 K/mm3 (0.0-0.1) 07/27/16 08:06 Seg Neutrophils % 60.0 % (40.0-70.0) 07/27/16 08:06 Seg Neutrophils # 4.3 K/mm3 (1.8-7.7) 07/27/16 08:06 PT 13.9 Sec. (12.2-14.9) 07/24/16 14:54 INR 1.08 (0.87-1.13) 07/24/16 14:54 APTT 32.6 Sec. (24.2-36.6) 07/24/16 14:54 Sodium 136 mmol/L (137-145) L 07/28/16 06:26 Potassium 5.1 mmol/L (3.6-5.0) H 07/28/16 06:26 Chloride 101.3 mmol/L (98-107) 07/28/16 06:26 Carbon Dioxide 19 mmol/L (22-30) L 07/28/16 06:26 Anion Gap 21 mmol/L 07/28/16 06:26 BUN 28 mg/dL (7-17) H 07/28/16 06:26 Creatinine 4.2 mg/dL (0.7-1.2) H 07/28/16 06:26 Estimated GFR 13 ml/min 07/28/16 06:26 BUN/Creatinine Ratio 6.66 % 07/28/16 06:26 Glucose 180 mg/dL (65-100) H 07/28/16 06:26 POC Glucose 227 (70-105) H 07/28/16 00:35 Calcium 8.5 mg/dL (8.4-10.2) 07/28/16 06:26 Troponin T 0.015 ng/mL (0.00-0.029) 07/24/16 20:39 NT-Pro-B Natriuret Pep 67073 pg/mL (0-900) H 07/24/16 15:02
[2016-07-28] MEDS: XALATAN 0.005% OU SCH (17:00)
[2016-07-28] MEDS: ZOCOR PO SCH (22:17)
--- NOTE | 2016-07-29 03:54 | Progress Note ---
Assessment and Plan Impression: * Acute kidney injury on stage IV chronic kidney disease - b/l SCr 2.3-2.5mg/dL * Accelerated hypertension --Renal artery doppler negative for MARYURI * Chest pain * Anemia likely secondary to CKD Plan: * Worsening renal function noted; hold Bumex; will give IVF 60ml/hour x 1 bag * Continue antiHTN medications - BP improved; continue to follow * Renin:olesya pending * Avoid potential nephrotoxins * Dose medications for renal function Subjective Date of service: 07/29/16 Principal diagnosis: Chest pain, Acute on chronic DHF, Accelerated HTN, Acute on CKD Interval history: Patient has no complaint today. Objective - Vital Signs Vital signs: Vital Signs - 12hr 07/28/16 07/28/16 07/28/16 16:54 21:06 22:17 Temperature 98.4 F 98.7 F Pulse Rate 78 Pulse Rate [ 78 Left Dorsalis Pedis] Respiratory 22 18 Rate Blood Pressure 158/69 Blood Pressure 177/75 158/69 [Left Arm] O2 Sat by Pulse 97 98 Oximetry 07/29/16 07/29/16 01:28 01:57 Temperature 98.4 F Pulse Rate 78 Pulse Rate [ 102 H Left Dorsalis Pedis] Respiratory 18 Rate Blood Pressure Blood Pressure 181/77 [Left Arm] O2 Sat by Pulse 79 L Oximetry - General Appearance General appearance: well-developed, well-nourished EENT: ATNC Respiratory: Present: Clear to Ascultation Cardiology: regular, S1S2 Gastrointestinal: normal, no tenderness, no distended Integumentary: no rash Neurologic: no focal deficit Musculoskeletal: other (no edema) - Lab 07/27/16 08:06 07/28/16 06:26 Most recent lab results Calcium 8.5 mg/dL (8.4-10.2) 07/28/16 06:26
[2016-07-29] MEDS ORDERED: NACL 0.9% 1000 ML 1,000 ML IV SCH (04:00)
[2016-07-29] MEDS: BENADRYL PO SCH ×3 (05:30→16:48)
[2016-07-29] MEDS: HEPARIN SUB-Q SCH ×3 (05:31→22:29)
[2016-07-29 07:03] LABS: Eosinophils % (Auto) 3.5 % (0.0-4.3); Hematocrit 24.2 % (30.3-42.9); Hemoglobin 8.2 gm/dl (10.1-14.3); Mean Corpuscular HGB Conc 34 % (30-34); Mean Corpuscular Hemoglobin 31 pg (28-32); Mean Corpuscular Volume 91 fl (79-97); Platelet Count 303 K/mm3 (140-440); Red Blood Count 2.66 M/mm3 (3.65-5.03); Red Cell Distribution Width 14.4 % (13.2-15.2); White Blood Count 7.3 K/mm3 (4.5-11.0)
[2016-07-29 07:19] LABS: BUN/Creatinine Ratio 6.34; Calcium 7.7 mg/dL (8.4-10.2); Potassium 4.5 mmol/L (3.6-5.0)
[2016-07-29] MEDS: CATAPRES PO SCH ×3 (09:05→20:54)
--- NOTE | 2016-07-29 09:27 | Progress Note ---
Assessment and Plan Impression: * Acute kidney injury on stage IV chronic kidney disease - b/l SCr 2.3-2.5mg/dL * Accelerated hypertension --Renal artery doppler negative for MARYURI * Chest pain * Anemia likely secondary to CKD * CAD * Acute on Chronic DHF Plan: * Worsening renal function noted; hold Bumex; gentle hydration * post void residual * follow up cr cl * daily lytes * strict i/os * Continue antiHTN medications - BP improved; continue to follow * Renin:olesya pending * Avoid potential nephrotoxins * Dose medications for renal function Subjective Date of service: 07/29/16 Principal diagnosis: Chest pain, Acute on chronic DHF, Accelerated HTN, Acute on CKD Interval history: resting well in bed today Objective - Exam Narrative Exam: General appearance: well-developed, well-nourished EENT: ATNC Respiratory: Present: Clear to Ascultation Cardiology: regular, S1S2 Gastrointestinal: normal, no tenderness, no distended Integumentary: no rash Neurologic: no focal deficit Musculoskeletal: other (no edema) - Vital Signs Vital signs: Vital Signs - 12hr 07/28/16 07/29/16 07/29/16 22:17 01:28 01:57 Temperature 98.4 F Pulse Rate 78 78 Pulse Rate [ 102 H Left Dorsalis Pedis] Pulse Rate [ Left Radial] Respiratory 18 Rate Blood Pressure 158/69 Blood Pressure 181/77 [Left Arm] O2 Sat by Pulse 79 L Oximetry 07/29/16 07/29/16 07/29/16 05:20 07:29 09:05 Temperature 98.6 F 98.2 F Pulse Rate Pulse Rate [ 76 Left Dorsalis Pedis] Pulse Rate [ 74 Left Radial] Respiratory 20 16 Rate Blood Pressure 197/93 Blood Pressure 139/63 197/80 [Left Arm] O2 Sat by Pulse 97 99 Oximetry - Lab 07/29/16 06:16 07/29/16 06:16 Most recent lab results Calcium 7.7 mg/dL (8.4-10.2) L 07/29/16 06:16
[2016-07-29] MEDS: ALPHAGAN P 0.15% OU SCH ×5 (11:42→20:56)
[2016-07-29] MEDS: HALFPRIN EC PO SCH (11:43)
[2016-07-29] MEDS: LONITEN PO SCH ×2 (11:44→22:28)
[2016-07-29] MEDS: NORMODYNE PO SCH ×2 (11:44→22:28)
[2016-07-29] MEDS: NORVASC PO SCH (11:45)
[2016-07-29] MEDS: PLAVIX PO SCH (11:45)
[2016-07-29] MEDS: PROTONIX PO SCH (11:45)
--- NOTE | 2016-07-29 13:00 | Progress Note ---
Assessment and Plan Hypertensive emergency. Controlled. Uncontrolled hypertension Chronic kidney disease stage IV morbid obesity Obstructive sleep apnea, suspected Recommendations Continue her hypertensive management. Concerned That Some of Her Prior Shortness of Breath Episode Will Be Related to Lung Problems. This Will Need Further Investigation with Outpatient PFT. She can be discharged on albuterol inhaler to be used 4 times a day as needed for symptoms relief. I did also emphasized to the patient that her shortness of breath could be related to poorly controlled blood pressure and these need to be followed closely Outpatient PFT and sleep study after discharge at the pulmonary office . Subjective Date of service: 07/29/16 Principal diagnosis: Chest pain, Acute on chronic DHF, Accelerated HTN, Acute on CKD Interval history: Patient reports no breathing problems at this time. No chest pain reported no headaches Objective Vital Signs - 12hr 07/29/16 07/29/16 07/29/16 01:28 01:57 05:20 Temperature 98.4 F 98.6 F Pulse Rate 78 Pulse Rate [ 102 H 76 Left Dorsalis Pedis] Pulse Rate [ Left Radial] Respiratory 18 20 Rate Respiratory Rate [Head] Blood Pressure Blood Pressure 181/77 139/63 [Left Arm] O2 Sat by Pulse 79 L 97 Oximetry 07/29/16 07/29/16 07/29/16 07:29 09:05 10:00 Temperature 98.2 F Pulse Rate 74 Pulse Rate [ Left Dorsalis Pedis] Pulse Rate [ 74 74 Left Radial] Respiratory 16 20 Rate Respiratory 20 Rate [Head] Blood Pressure 197/93 Blood Pressure 197/80 [Left Arm] O2 Sat by Pulse 99 99 Oximetry Constitutional: no acute distress, alert, other (morbidly obese) Eyes: non-icteric ENT: oropharynx moist Neck: supple Ascultation: Bilateral: clear Cardiovascular: regular rate and rhythm Gastrointestinal: normoactive bowel sounds, non-distended Integumentary: normal Extremities: no cyanosis, no edema Neurologic: normal mental status, non-focal exam, CN II-XII normal Psychiatric: mood appropriate, affect normal CBC and BMP: 07/29/16 06:16 07/29/16 06:16 ABG, PT/INR, D-dimer: PT/INR, D-dimer PT 13.9 Sec. (12.2-14.9) 07/24/16 14:54 INR 1.08 (0.87-1.13) 07/24/16 14:54 Abnormal lab findings: Abnormal Labs 07/25/16 07/25/16 07/25/16 00:57 04:14 04:14 RBC 2.88 L Hgb 8.7 L Hct 25.7 L [place] % (Auto) Sodium Potassium Chloride Carbon Dioxide 19 L BUN 19 H Creatinine 3.1 H Glucose 237 H POC Glucose 279 H Calcium 8.0 L 07/25/16 07/25/16 07/25/16 11:50 16:32 22:21 RBC Hgb Hct [place] % (Auto) Sodium Potassium Chloride Carbon Dioxide BUN Creatinine Glucose POC Glucose 209 H 218 H 256 H Calcium 07/26/16 07/26/16 07/26/16 08:36 10:32 11:53 RBC Hgb Hct [place] % (Auto) Sodium 133 L Potassium Chloride 97.3 L Carbon Dioxide 18 L BUN 20 H Creatinine 3.2 H Glucose 274 H POC Glucose 212 H 296 H Calcium 7.9 L 07/26/16 07/26/16 07/27/16 17:18 21:44 08:06 RBC 2.81 L Hgb 8.7 L Hct 25.3 L [place] % (Auto) 7.8 H Sodium Potassium Chloride Carbon Dioxide BUN Creatinine Glucose POC Glucose 142 H 168 H Calcium 07/27/16 07/27/16 07/27/16 08:06 08:24 11:41 RBC Hgb Hct [place] % (Auto) Sodium Potassium Chloride Carbon Dioxide 21 L BUN 23 H Creatinine 3.6 H Glucose 248 H POC Glucose 255 H 191 H Calcium 07/28/16 07/28/16 07/28/16 00:21 00:35 06:26 RBC Hgb Hct [place] % (Auto) Sodium 136 L Potassium 5.1 H Chloride Carbon Dioxide 19 L BUN 28 H Creatinine 4.2 H Glucose 180 H POC Glucose < 40 L 227 H Calcium 07/28/16 07/28/16 07/28/16 07:53 12:59 16:18 RBC Hgb Hct [place] % (Auto) Sodium Potassium Chloride Carbon Dioxide BUN Creatinine Glucose POC Glucose 216 H 230 H 108 H Calcium 07/29/16 07/29/16 07/29/16 06:16 06:16 07:22 RBC 2.66 L Hgb 8.2 L Hct 24.2 L [place] % (Auto) Sodium Potassium Chloride Carbon Dioxide 18 L BUN 26 H Creatinine 4.1 H Glucose 175 H POC Glucose 203 H Calcium 7.7 L
[2016-07-29] MEDS: IMDUR PO SCH (13:18)
--- NOTE | 2016-07-29 15:12 | Progress Note ---
Assessment and Plan Chest pain resolved stress MPI 05/2015: negative for ischemia continue Imdur Accelerated hypertension Acute on chronic diastolic heart failure EF 50% per echo 10/2014 bumex on hold due to worsening renal indices CAD s/p PCI of LAD and RCA [facility] 2009: patent stents Echo 10/2014: EF 50% Acute on chronic kidney disease Anemia Continue current management. The patient has been seen in conjunction with Dr. Swenson who agrees with the assessment and plan of care. Subjective Date of service: 07/29/16 Principal diagnosis: Chest pain, Acute on chronic DHF, Accelerated HTN, Acute on CKD Interval history: The patient is resting in bed. She complains of bilateral flank pain. No chest pain or shortness of breath. Sinus rhythm on the monitor. Objective Last Vital Signs Temp 98.2 F 07/29/16 07:29 Pulse 74 07/29/16 10:00 Resp 20 07/29/16 10:00 BP 197/93 07/29/16 09:05 Pulse Ox 99 07/29/16 10:00 - Physical Examination General: No Apparent Distress HEENT: Positive: EOMI, Normocephaly, Mucus Membranes Moist Neck: Positive: neck supple, trachea midline, JVD/HJR Cardiac: Positive: Reg Rate and Rhythm, S1/S2 Lungs: Positive: clear to auscultation Neuro: Positive: Grossly Intact Abdomen: Positive: Soft, Active Bowel Sounds. Negative: Tender Skin: Positive: Clear. Negative: Rash Musculoskeletal: Normal Range of Motion Extremities: Absent: edema - Labs and Meds CBC 07/29/16 Range/Units 06:16 WBC 7.3 (4.5-11.0) K/mm3 RBC 2.66 L (3.65-5.03) M/mm3 Hgb 8.2 L (10.1-14.3) gm/dl Hct 24.2 L (30.3-42.9) % Plt Count 303 (140-440) K/mm3 Lymph # 2.1 (1.2-5.4) K/mm3 [place] # 0.5 (0.0-0.8) K/mm3 Eos # 0.3 (0.0-0.4) K/mm3 Baso # 0.1 (0.0-0.1) K/mm3 Comprehensive Metabolic Panel 07/29/16 Range/Units 06:16 Sodium 138 (137-145) mmol/L Potassium 4.5 (3.6-5.0) mmol/L Chloride 101.0 (98-107) mmol/L Carbon Dioxide 18 L (22-30) mmol/L BUN 26 H (7-17) mg/dL Creatinine 4.1 H (0.7-1.2) mg/dL Glucose 175 H (65-100) mg/dL Calcium 7.7 L (8.4-10.2) mg/dL - Imaging and Cardiology Echo: report reviewed - Telemetry EKG Rhythm: Sinus Rhythm
[2016-07-29] MEDS: XALATAN 0.005% OU SCH (16:59)
[2016-07-29 18:00] LABS: Bilirubin,Urine NEG (Negative); Blood,Urine NEG (Negative); Ketones,Urine NEG (Negative); Leukocyte Esterase,Urine TR (Negative); Nitrite,Urine NEG (Negative); Urobilinogen,Urine < 2.0 mg/dL (<2.0)
--- NOTE | 2016-07-29 20:14 | Progress Note ---
Assessment and Plan Assessment and plan: 1. Accelerated hypertension- uncontrolled; will increase IMDUR cont clonidine and cont other med; monitor; f/u renal / cardilology for further recommendations 2. CAD with Chest pain-s/p remote stent ; AMI ruled out based on negative CE ; refused stress testing; cont meds; imdur reduced as per cardiology due to complaint of headache 3. Acute on chronic diastolic heart failure- compensated. cont current manx; her to hold Bumex secondary to worsening renal indices 4. Acute kidney injury superimposed on CKD due to vasomotor nephropathy- cr continues to increase today; monitor; f/u renal for further recommendations; mild hyperkalemia- kayexalate; repeat;level in the a.m Bumex although nephrotoxic medications held. 5. Anemia of chronic d/o- H/H now stable after acute fall; monitor; occult bloo d 6. DM- cont current insulin regime 7. Fall- Per patient's her legs gave out and she slid down to the floor with no trauma. No loss of consciousness.-Obtain PT OT evaluation and treat 8. Obesity 9. Obstructive sleep [id number] Pulmonary- outpatient sleep study recommeded including PFT- On Discharge will need symptom relief with albuterol inhaler 10. DVT prophylaxis- d/c heparin; acute fall in H/h; SCD . History Interval history: f/u hypertension urgency; chest pain Patient seen and examined this morning in no acute distress, for about 2 weeks she has not been able to blink appropriately due to bilateral leg weakness. Denies any chest pain, nausea, vomiting, diarrhea No fever noted blood pressure controlled Patient had a slip and fall in the restroom with no trauma to the head and shoulders elbows all to the hip. Hospitalist Physical - Physical exam Narrative exam: VITAL SIGNS: Reviewed. GENERAL: The patient appeared well nourished and normally developed otherwise lethargic.. Vital signs as documented. HEAD: No signs of head trauma. EYES: Pupils are equal. Extraocular motions intact. EARS: Hearing grossly intact. MOUTH: Oropharynx is normal. NECK: No adenopathy, no JVD. CHEST: Chest with clear breath sounds bilaterally. No wheezes, rales, or rhonchi. CARDIAC: Regular rate and rhythm. S1 and S2, without murmurs, gallops, or rubs. VASCULAR: No Edema. Peripheral pulses normal and equal in all extremities. ABDOMEN: Soft, without detectable tenderness. No sign of distention. No rebound or guarding, and no masses palpated. Bowel Sounds normal. MUSCULOSKELETAL: Good range of motion of all major joints. Extremities without clubbing, cyanosis or edema. NEUROLOGIC EXAM: Alert and oriented x 3. No focal sensory or strength deficits. Speech normal. Follows commands. PSYCHIATRIC: Mood normal. SKIN: No rash or lesions. - Constitutional Vitals: Temp Pulse Resp BP Pulse Ox 98.0 F 72 18 168/84 99 07/29/16 16:39 07/29/16 16:39 07/29/16 16:39 07/29/16 16:39 07/29/16 16:39 General appearance: Present: no acute distress, well-nourished Results - Labs CBC & Chem 7: 07/29/16 06:16 07/29/16 06:16 Labs: Laboratory Last Values WBC 7.3 K/mm3 (4.5-11.0) 07/29/16 06:16 RBC 2.66 M/mm3 (3.65-5.03) L 07/29/16 06:16 Hgb 8.2 gm/dl (10.1-14.3) L 07/29/16 06:16 Hct 24.2 % (30.3-42.9) L 07/29/16 06:16 MCV 91 fl (79-97) 07/29/16 06:16 MCH 31 pg (28-32) 07/29/16 06:16 MCHC 34 % (30-34) 07/29/16 06:16 RDW 14.4 % (13.2-15.2) 07/29/16 06:16 Plt Count 303 K/mm3 (140-440) 07/29/16 06:16 Lymph % (Auto) 28.3 % (13.4-35.0) 07/29/16 06:16 [place] % (Auto) 6.6 % (0.0-7.3) 07/29/16 06:16 Eos % (Auto) 3.5 % (0.0-4.3) 07/29/16 06:16 Baso % (Auto) 1.0 % (0.0-1.8) 07/29/16 06:16 Lymph # 2.1 K/mm3 (1.2-5.4) 07/29/16 06:16 [place] # 0.5 K/mm3 (0.0-0.8) 07/29/16 06:16 Eos # 0.3 K/mm3 (0.0-0.4) 07/29/16 06:16 Baso # 0.1 K/mm3 (0.0-0.1) 07/29/16 06:16 Seg Neutrophils % 60.6 % (40.0-70.0) 07/29/16 06:16 Seg Neutrophils # 4.4 K/mm3 (1.8-7.7) 07/29/16 06:16 PT 13.9 Sec. (12.2-14.9) 07/24/16 14:54 INR 1.08 (0.87-1.13) 07/24/16 14:54 APTT 32.6 Sec. (24.2-36.6) 07/24/16 14:54 Sodium 138 mmol/L (137-145) 07/29/16 06:16 Potassium 4.5 mmol/L (3.6-5.0) 07/29/16 06:16 Chloride 101.0 mmol/L (98-107) 07/29/16 06:16 Carbon Dioxide 18 mmol/L (22-30) L 07/29/16 06:16 Anion Gap 24 mmol/L 07/29/16 06:16 BUN 26 mg/dL (7-17) H 07/29/16 06:16 Creatinine 4.1 mg/dL (0.7-1.2) H 07/29/16 06:16 Estimated GFR 13 ml/min 07/29/16 06:16 BUN/Creatinine Ratio 6.34 % 07/29/16 06:16 Glucose 175 mg/dL (65-100) H 07/29/16 06:16 POC Glucose 143 (70-105) H 07/29/16 16:10 Calcium 7.7 mg/dL (8.4-10.2) L 07/29/16 06:16 Troponin T 0.015 ng/mL (0.00-0.029) 07/24/16 20:39 NT-Pro-B Natriuret Pep 70238 pg/mL (0-900) H 07/24/16 15:02 Urine Color Yellow (Yellow) 07/29/16 Unknown Urine Turbidity Slightly-cloudy (Clear) 07/29/16 Unknown Urine pH 6.0 (5.0-7.0) 07/29/16 Unknown Ur Specific [place] 1.009 (1.003-1.030) 07/29/16 Unknown Urine Protein 100 mg/dl mg/dL (Negative) 07/29/16 Unknown Urine Glucose (UA) 150 mg/dL (Negative) 07/29/16 Unknown Urine Ketones Neg mg/dL (Negative) 07/29/16 Unknown Urine Blood Neg (Negative) 07/29/16 Unknown Urine Nitrite Neg (Negative) 07/29/16 Unknown Urine Bilirubin Neg (Negative) 07/29/16 Unknown Urine Urobilinogen < 2.0 mg/dL (<2.0) 07/29/16 Unknown Ur Leukocyte Esterase Tr (Negative) 07/29/16 Unknown Urine WBC (Auto) 6.0 /HPF (0.0-6.0) 07/29/16 Unknown Urine RBC (Auto) 4.0 /HPF (0.0-6.0) 07/29/16 Unknown U Epithel Cells (Auto) 6.0 /HPF (0-13.0) 07/29/16 Unknown Amorphous Crystals Few 07/29/16 Unknown Urine Eosinophils None seen (None Seen) 07/29/16 Unknown
[2016-07-29] MEDS: ZOCOR PO SCH (22:29)
[2016-07-29] MEDS: ATIVAN PO SCH (22:29)
[2016-07-29] MEDS: NON-FORMULARY (Linaclotide [Linzess] 290 MCG) PO SCH (22:35)
[2016-07-30] MEDS: HEPARIN SUB-Q SCH ×3 (06:14→22:35)
--- NOTE | 2016-07-30 06:50 | Progress Note ---
Assessment and Plan Impression: * Acute kidney injury on stage IV chronic kidney disease - b/l SCr 2.3-2.5mg/dL * Accelerated hypertension --Renal artery doppler negative for MARYURI * Chest pain * Anemia likely secondary to CKD * CAD * Acute on Chronic DHF Plan: * Worsening renal function noted; hold Bumex; s/pgentle hydration * post void residual * follow up cr cl * daily lytes * strict i/os * Continue antiHTN medications - BP improved; continue to follow * Renin:olesya pending * Avoid potential nephrotoxins * Dose medications for renal function Subjective Date of service: 07/30/16 Principal diagnosis: Chest pain, Acute on chronic DHF, Accelerated HTN, Acute on CKD Interval history: resting well in bed today Objective - Exam Narrative Exam: General appearance: well-developed, well-nourished EENT: ATNC Respiratory: Present: Clear to Ascultation Cardiology: regular, S1S2 Gastrointestinal: normal, no tenderness, no distended Integumentary: no rash Neurologic: no focal deficit Musculoskeletal: other (no edema) - Vital Signs Vital signs: Vital Signs - 12hr 07/29/16 07/29/16 07/29/16 20:00 20:54 22:28 Temperature 98.3 F Pulse Rate 78 75 Pulse Rate [ 73 Left Radial] Respiratory 18 Rate Blood Pressure 144/67 157/73 Blood Pressure 144/67 [Left Arm] O2 Sat by Pulse 98 Oximetry 07/30/16 07/30/16 00:00 04:00 Temperature 98.0 F 98.1 F Pulse Rate Pulse Rate [ 76 71 Left Radial] Respiratory 18 18 Rate Blood Pressure Blood Pressure 168/78 159/73 [Left Arm] O2 Sat by Pulse 97 97 Oximetry - Lab 07/29/16 06:16 07/29/16 06:16 Most recent lab results Calcium 7.7 mg/dL (8.4-10.2) L 07/29/16 06:16
[2016-07-30 07:49] LABS: BUN/Creatinine Ratio 6.97; Calcium 8.2 mg/dL (8.4-10.2); Chloride 103.8 mmol/L (98-107); Potassium 4.6 mmol/L (3.6-5.0)
[2016-07-30] MEDS: CATAPRES PO SCH ×2 (09:05→13:44)
[2016-07-30] MEDS: NON-FORMULARY (Linaclotide [Linzess] 290 MCG) PO SCH (09:15)
[2016-07-30] MEDS: NORMODYNE PO SCH (10:57)
[2016-07-30] MEDS: LONITEN PO SCH (10:58)
[2016-07-30] MEDS: PROTONIX PO SCH (10:58)
[2016-07-30] MEDS: IMDUR PO SCH (10:58)
[2016-07-30] MEDS: PLAVIX PO SCH (10:58)
[2016-07-30] MEDS: HALFPRIN EC PO SCH (10:59)
[2016-07-30] MEDS: ALPHAGAN P 0.15% OU SCH ×2 (11:00→13:47)
[2016-07-30] MEDS: BENADRYL PO SCH ×3 (11:00→17:00)
[2016-07-30] MEDS: NORVASC PO SCH (11:01)
--- NOTE | 2016-07-30 11:42 | Progress Note ---
Assessment and Plan Chest pain resolved stress MPI 05/2015: negative for ischemia continue Imdur Accelerated hypertension BP improved Acute on chronic diastolic heart failure EF 50% per echo 10/2014 bumex on hold due to worsening renal indices CAD s/p PCI of LAD and RCA [facility] 2009: patent stents Echo 10/2014: EF 50% Acute on chronic kidney disease Anemia Stable cardiac status. Continue current management. Will see as needed. The patient has been seen in conjunction with Dr. Swenson who agrees with the assessment and plan of care. Subjective Date of service: 07/30/16 Principal diagnosis: Chest pain, Acute on chronic DHF, Accelerated HTN, Acute on CKD Interval history: The patient is ambulating in the hallway with PT this morning. No new complaints. Sinus rhythm on the monitor. Objective Last Vital Signs Temp 98.0 F 07/30/16 09:19 Pulse 65 07/30/16 11:01 Resp 16 07/30/16 09:19 BP 141/63 07/30/16 11:01 Pulse Ox 100 07/30/16 09:19 - Physical Examination General: No Apparent Distress HEENT: Positive: EOMI, Normocephaly, Mucus Membranes Moist Neck: Positive: neck supple, trachea midline, JVD/HJR Cardiac: Positive: Reg Rate and Rhythm, S1/S2 Lungs: Positive: clear to auscultation Neuro: Positive: Grossly Intact Abdomen: Positive: Soft, Active Bowel Sounds. Negative: Tender Skin: Positive: Clear. Negative: Rash Musculoskeletal: Normal Range of Motion Extremities: Absent: edema - Labs and Meds Comprehensive Metabolic Panel 07/30/16 Range/Units 06:33 Sodium 141 (137-145) mmol/L Potassium 4.6 (3.6-5.0) mmol/L Chloride 103.8 (98-107) mmol/L Carbon Dioxide 21 L (22-30) mmol/L BUN 30 H (7-17) mg/dL Creatinine 4.3 H (0.7-1.2) mg/dL Glucose 73 (65-100) mg/dL Calcium 8.2 L (8.4-10.2) mg/dL - Imaging and Cardiology Echo: report reviewed - Telemetry EKG Rhythm: Sinus Rhythm
--- NOTE | 2016-07-30 13:33 | Progress Note ---
Assessment and Plan Hypertensive emergency. Controlled. Uncontrolled hypertension Chronic kidney disease stage IV morbid obesity Obstructive sleep apnea, suspected Recommendations Continue HBP management. Ambulate pt and monitor oximetry on r/a Outpatient PFT and sleep study after discharge at the pulmonary office . Subjective Date of service: 07/30/16 Principal diagnosis: Chest pain, Acute on chronic DHF, Accelerated HTN, Acute on CKD Interval history: Patient reports no breathing problems at res. No chest pain reported no headaches.Still c/o [place] ,moving out of bed Objective Vital Signs - 12hr 07/30/16 07/30/16 07/30/16 04:00 09:19 10:57 Temperature 98.1 F 98.0 F Pulse Rate 65 Pulse Rate [ 71 Left Radial] Pulse Rate [ 65 Right Radial] Respiratory 18 16 Rate Blood Pressure 141/63 Blood Pressure 159/73 [Left Arm] Blood Pressure 141/63 [Right Arm] O2 Sat by Pulse 97 100 Oximetry 07/30/16 07/30/16 07/30/16 10:58 11:01 12:35 Temperature 98.0 F Pulse Rate 65 65 Pulse Rate [ Left Radial] Pulse Rate [ 70 Right Radial] Respiratory 16 Rate Blood Pressure 141/63 141/63 Blood Pressure [Left Arm] Blood Pressure 130/60 [Right Arm] O2 Sat by Pulse 99 Oximetry Constitutional: no acute distress, alert, other (morbidly obese) Eyes: non-icteric ENT: oropharynx moist Neck: supple Ascultation: Bilateral: clear, diminished breath sounds Cardiovascular: regular rate and rhythm Gastrointestinal: normoactive bowel sounds, non-distended Integumentary: normal Extremities: no cyanosis, no edema Neurologic: normal mental status, non-focal exam, CN II-XII normal Psychiatric: mood appropriate, affect normal CBC and BMP: 07/29/16 06:16 07/30/16 06:33 ABG, PT/INR, D-dimer: PT/INR, D-dimer PT 13.9 Sec. (12.2-14.9) 07/24/16 14:54 INR 1.08 (0.87-1.13) 07/24/16 14:54 Abnormal lab findings: Abnormal Labs 07/25/16 07/25/16 07/25/16 00:57 04:14 04:14 RBC 2.88 L Hgb 8.7 L Hct 25.7 L [place] % (Auto) Sodium Potassium Chloride Carbon Dioxide 19 L BUN 19 H Creatinine 3.1 H Glucose 237 H POC Glucose 279 H Calcium 8.0 L 07/25/16 07/25/16 07/25/16 11:50 16:32 22:21 RBC Hgb Hct [place] % (Auto) Sodium Potassium Chloride Carbon Dioxide BUN Creatinine Glucose POC Glucose 209 H 218 H 256 H Calcium 07/26/16 07/26/16 07/26/16 08:36 10:32 11:53 RBC Hgb Hct [place] % (Auto) Sodium 133 L Potassium Chloride 97.3 L Carbon Dioxide 18 L BUN 20 H Creatinine 3.2 H Glucose 274 H POC Glucose 212 H 296 H Calcium 7.9 L 07/26/16 07/26/16 07/27/16 17:18 21:44 08:06 RBC 2.81 L Hgb 8.7 L Hct 25.3 L [place] % (Auto) 7.8 H Sodium Potassium Chloride Carbon Dioxide BUN Creatinine Glucose POC Glucose 142 H 168 H Calcium 07/27/16 07/27/16 07/27/16 08:06 08:24 11:41 RBC Hgb Hct [place] % (Auto) Sodium Potassium Chloride Carbon Dioxide 21 L BUN 23 H Creatinine 3.6 H Glucose 248 H POC Glucose 255 H 191 H Calcium 07/28/16 07/28/16 07/28/16 00:21 00:35 06:26 RBC Hgb Hct [place] % (Auto) Sodium 136 L Potassium 5.1 H Chloride Carbon Dioxide 19 L BUN 28 H Creatinine 4.2 H Glucose 180 H POC Glucose < 40 L 227 H Calcium 07/28/16 07/28/16 07/28/16 07:53 12:59 16:18 RBC Hgb Hct [place] % (Auto) Sodium Potassium Chloride Carbon Dioxide BUN Creatinine Glucose POC Glucose 216 H 230 H 108 H Calcium 07/29/16 07/29/16 07/29/16 06:16 06:16 07:22 RBC 2.66 L Hgb 8.2 L Hct 24.2 L [place] % (Auto) Sodium Potassium Chloride Carbon Dioxide 18 L BUN 26 H Creatinine 4.1 H Glucose 175 H POC Glucose 203 H Calcium 7.7 L 07/29/16 07/29/16 07/29/16 13:05 16:10 21:26 RBC Hgb Hct [place] % (Auto) Sodium Potassium Chloride Carbon Dioxide BUN Creatinine Glucose POC Glucose 233 H 143 H 69 L Calcium 07/30/16 06:33 RBC Hgb Hct [place] % (Auto) Sodium Potassium Chloride Carbon Dioxide 21 L BUN 30 H Creatinine 4.3 H Glucose POC Glucose Calcium 8.2 L
--- NOTE | 2016-07-30 15:29 | Progress Note ---
Assessment and Plan Assessment and plan: 1. Accelerated hypertension- uncontrolled; improved with the increase IMDUR, cont clonidine and cont other med; monitor; f/u renal / cardilology for further recommendations 2. CAD with Chest pain-s/p remote stent ; AMI ruled out based on negative CE ; refused stress testing; cont meds; 3. Acute on chronic diastolic heart failure- compensated. cont current manx; continue to hold Bumex secondary to worsening renal indices 4. Acute kidney injury superimposed on CKD due to vasomotor nephropathy- cr continues to increase today; monitor; f/u renal for further recommendations; mild hyperkalemia- kayexalate; repeat;level in the a.m Bumex although nephrotoxic medications held. 5. Anemia of chronic d/o- H/H now stable after acute fall; monitor; occult bloo d 6. DM- cont current insulin regime 7. Fall- Per patient's her legs gave out and she slid down to the floor with no trauma. No loss of consciousness.-Obtain PT OT evaluation and treat 8. Obesity 9. Obstructive sleep [id number] Pulmonary- outpatient sleep study recommeded including PFT- On Discharge will need symptom relief with albuterol inhaler 10. DVT prophylaxis- d/c heparin; acute fall in H/h; SCD . History Interval history: f/u hypertension urgency; chest pain Patient seen and examined this morning in no acute distress, for about 2 weeks she has not been able to ambulate appropriately due to bilateral leg weakness. Denies any chest pain, nausea, vomiting, diarrhea No fever noted blood pressure controlled . Hospitalist Physical - Physical exam Narrative exam: VITAL SIGNS: Reviewed. GENERAL: The patient appeared well nourished and normally developed otherwise lethargic.. Vital signs as documented. HEAD: No signs of head trauma. EYES: Pupils are equal. Extraocular motions intact. EARS: Hearing grossly intact. MOUTH: Oropharynx is normal. NECK: No adenopathy, no JVD. CHEST: Chest with clear breath sounds bilaterally. No wheezes, rales, or rhonchi. CARDIAC: Regular rate and rhythm. S1 and S2, without murmurs, gallops, or rubs. VASCULAR: No Edema. Peripheral pulses normal and equal in all extremities. ABDOMEN: Soft, without detectable tenderness. No sign of distention. No rebound or guarding, and no masses palpated. Bowel Sounds normal. MUSCULOSKELETAL: Good range of motion of all major joints. Extremities without clubbing, cyanosis or edema. NEUROLOGIC EXAM: Alert and oriented x 3. No focal sensory or strength deficits. Speech normal. Follows commands. PSYCHIATRIC: Mood normal. SKIN: No rash or lesions. - Constitutional Vitals: Temp Pulse Resp BP Pulse Ox 98.0 F 70 16 130/60 99 07/30/16 12:35 07/30/16 13:44 07/30/16 12:35 07/30/16 13:44 07/30/16 12:35 General appearance: Present: no acute distress, well-nourished Results - Labs CBC & Chem 7: 07/29/16 06:16 07/30/16 06:33 Labs: Laboratory Last Values WBC 7.3 K/mm3 (4.5-11.0) 07/29/16 06:16 RBC 2.66 M/mm3 (3.65-5.03) L 07/29/16 06:16 Hgb 8.2 gm/dl (10.1-14.3) L 07/29/16 06:16 Hct 24.2 % (30.3-42.9) L 07/29/16 06:16 MCV 91 fl (79-97) 07/29/16 06:16 MCH 31 pg (28-32) 07/29/16 06:16 MCHC 34 % (30-34) 07/29/16 06:16 RDW 14.4 % (13.2-15.2) 07/29/16 06:16 Plt Count 303 K/mm3 (140-440) 07/29/16 06:16 Lymph % (Auto) 28.3 % (13.4-35.0) 07/29/16 06:16 [place] % (Auto) 6.6 % (0.0-7.3) 07/29/16 06:16 Eos % (Auto) 3.5 % (0.0-4.3) 07/29/16 06:16 Baso % (Auto) 1.0 % (0.0-1.8) 07/29/16 06:16 Lymph # 2.1 K/mm3 (1.2-5.4) 07/29/16 06:16 [place] # 0.5 K/mm3 (0.0-0.8) 07/29/16 06:16 Eos # 0.3 K/mm3 (0.0-0.4) 07/29/16 06:16 Baso # 0.1 K/mm3 (0.0-0.1) 07/29/16 06:16 Seg Neutrophils % 60.6 % (40.0-70.0) 07/29/16 06:16 Seg Neutrophils # 4.4 K/mm3 (1.8-7.7) 07/29/16 06:16 PT 13.9 Sec. (12.2-14.9) 07/24/16 14:54 INR 1.08 (0.87-1.13) 07/24/16 14:54 APTT 32.6 Sec. (24.2-36.6) 07/24/16 14:54 Sodium 141 mmol/L (137-145) 07/30/16 06:33 Potassium 4.6 mmol/L (3.6-5.0) 07/30/16 06:33 Chloride 103.8 mmol/L (98-107) 07/30/16 06:33 Carbon Dioxide 21 mmol/L (22-30) L 07/30/16 06:33 Anion Gap 21 mmol/L 07/30/16 06:33 BUN 30 mg/dL (7-17) H 07/30/16 06:33 Creatinine 4.3 mg/dL (0.7-1.2) H 07/30/16 06:33 Estimated GFR 12 ml/min 07/30/16 06:33 BUN/Creatinine Ratio 6.97 % 07/30/16 06:33 Glucose 73 mg/dL (65-100) 07/30/16 06:33 POC Glucose 92 (70-105) 07/30/16 07:22 Calcium 8.2 mg/dL (8.4-10.2) L 07/30/16 06:33 Troponin T 0.015 ng/mL (0.00-0.029) 07/24/16 20:39 NT-Pro-B Natriuret Pep 64260 pg/mL (0-900) H 07/24/16 15:02 Urine Color Yellow (Yellow) 07/29/16 Unknown Urine Turbidity Slightly-cloudy (Clear) 07/29/16 Unknown Urine pH 6.0 (5.0-7.0) 07/29/16 Unknown Ur Specific [place] 1.009 (1.003-1.030) 07/29/16 Unknown Urine Protein 100 mg/dl mg/dL (Negative) 07/29/16 Unknown Urine Glucose (UA) 150 mg/dL (Negative) 07/29/16 Unknown Urine Ketones Neg mg/dL (Negative) 07/29/16 Unknown Urine Blood Neg (Negative) 07/29/16 Unknown Urine Nitrite Neg (Negative) 07/29/16 Unknown Urine Bilirubin Neg (Negative) 07/29/16 Unknown Urine Urobilinogen < 2.0 mg/dL (<2.0) 07/29/16 Unknown Ur Leukocyte Esterase Tr (Negative) 07/29/16 Unknown Urine WBC (Auto) 6.0 /HPF (0.0-6.0) 07/29/16 Unknown Urine RBC (Auto) 4.0 /HPF (0.0-6.0) 07/29/16 Unknown U Epithel Cells (Auto) 6.0 /HPF (0-13.0) 07/29/16 Unknown Amorphous Crystals Few 07/29/16 Unknown Urine Eosinophils None seen (None Seen) 07/29/16 Unknown
[2016-07-30] MEDS: XALATAN 0.005% OU SCH (18:44)
[2016-07-30] MEDS: D50W (25GM) IV PRN (19:00)
[2016-07-30] MEDS: ZOCOR PO SCH (22:35)
[2016-07-31] MEDS: ALPHAGAN P 0.15% OU SCH ×4 (06:04→21:35)
[2016-07-31] MEDS: CATAPRES PO SCH ×4 (06:04→21:37)
[2016-07-31] MEDS: NORMODYNE PO SCH ×3 (06:05→21:36)
[2016-07-31] MEDS: LONITEN PO SCH ×3 (06:05→21:36)
[2016-07-31] MEDS: ATIVAN PO SCH ×2 (06:05→21:36)
[2016-07-31] MEDS: BENADRYL PO SCH ×3 (06:06→18:23)
[2016-07-31] MEDS: HEPARIN SUB-Q SCH ×4 (06:11→22:11)
[2016-07-31 08:34] LABS: BUN/Creatinine Ratio 6.66; Calcium 7.8 mg/dL (8.4-10.2); Potassium 4.2 mmol/L (3.6-5.0)
[2016-07-31] MEDS: IMDUR PO SCH (09:17)
[2016-07-31] MEDS: NORVASC PO SCH (09:19)
[2016-07-31] MEDS: NON-FORMULARY (Linaclotide [Linzess] 290 MCG) PO SCH (09:21)
[2016-07-31] MEDS: HALFPRIN EC PO SCH (09:36)
[2016-07-31] MEDS: PLAVIX PO SCH (09:37)
[2016-07-31] MEDS: PROTONIX PO SCH (09:38)
--- NOTE | 2016-07-31 11:07 | Progress Note ---
Assessment and Plan Impression: * Acute kidney injury on stage IV chronic kidney disease - b/l SCr 2.3-2.5mg/dL * Accelerated hypertension --Renal artery doppler negative for MARYURI * Chest pain * Anemia likely secondary to CKD Plan: * Renal function noted - ?due to relative hypotension as blood pressure is now controlled * Continue to hold Bumex * Continue antiHTN medications * Renin:olesya pending * Avoid potential nephrotoxins * Dose medications for renal function Subjective Date of service: 07/31/16 Principal diagnosis: Chest pain, Acute on chronic DHF, Accelerated HTN, Acute on CKD Interval history: Patient seen without complaint. Objective - Vital Signs Vital signs: Vital Signs - 12hr 07/31/16 07/31/16 07/31/16 00:00 04:00 06:04 Temperature 98.0 F 98.3 F Pulse Rate 66 Pulse Rate [ Left Dorsalis Pedis] Pulse Rate [ 68 66 Left Radial] Respiratory 18 18 Rate Blood Pressure 119/59 Blood Pressure 135/71 160/109 [Left Arm] O2 Sat by Pulse 98 98 Oximetry 07/31/16 07/31/16 07/31/16 06:05 08:08 09:17 Temperature 98.4 F Pulse Rate 66 65 Pulse Rate [ 65 Left Dorsalis Pedis] Pulse Rate [ Left Radial] Respiratory 20 Rate Blood Pressure 119/59 137/61 Blood Pressure 137/61 [Left Arm] O2 Sat by Pulse 97 Oximetry 07/31/16 07/31/16 07/31/16 09:18 09:19 09:20 Temperature Pulse Rate 65 65 65 Pulse Rate [ Left Dorsalis Pedis] Pulse Rate [ Left Radial] Respiratory Rate Blood Pressure 137/61 137/61 137/61 Blood Pressure [Left Arm] O2 Sat by Pulse Oximetry - General Appearance General appearance: well-developed, well-nourished EENT: ATNC Respiratory: Present: Clear to Ascultation Cardiology: regular, S1S2 Gastrointestinal: normal, no tenderness, no distended Integumentary: no rash Musculoskeletal: other (trace edema) Psychiatric: cooperative - Lab 07/29/16 06:16 07/31/16 07:11 Most recent lab results Calcium 7.8 mg/dL (8.4-10.2) L 07/31/16 07:11
[2016-07-31] MEDS: ULTRAM PO PRN ×2 (12:55→13:05)
--- NOTE | 2016-07-31 13:29 | Progress Note ---
Assessment and Plan Assessment and plan: 1. Accelerated hypertension- uncontrolled; improved with the increase IMDUR, cont clonidine and cont other med; monitor; f/u renal / cardilology for further recommendations 2. CAD with Chest pain-s/p remote stent ; AMI ruled out based on negative CE ; refused stress testing; cont meds; 3. Acute on chronic diastolic heart failure- compensated. cont current manx; continue to hold Bumex secondary to worsening renal indices 4. Acute kidney injury superimposed on CKD due to vasomotor nephropathy- cr continues to increase today; monitor; f/u renal for further recommendations; mild hyperkalemia- kayexalate; repeat;level in the a.m Bumex although nephrotoxic medications held. 5. Anemia of chronic d/o- H/H now stable after acute fall; monitor; occult bloo d 6. DM- cont current insulin regime 7. Fall- Per patient's her legs gave out and she slid down to the floor with no trauma. No loss of consciousness.-d/w nurising and case management need PT OT evaluation and treat 8. Obesity 9. Metabolic acidosis- Per Nephrology 10. Obstructive sleep [id number] Pulmonary- outpatient sleep study recommeded including PFT- On Discharge will need symptom relief with albuterol inhaler 11. DVT prophylaxis- d/c heparin; acute fall in H/h; SCD . History Interval history: f/u hypertension urgency; chest pain Patient seen and examined this morning in no acute distress, for about 2 weeks Prior to admission she has not been able to ambulate appropriately due to bilateral leg weakness. Denies any chest pain, nausea, vomiting, diarrhea No fever noted blood pressure controlled . Hospitalist Physical - Physical exam Narrative exam: VITAL SIGNS: Reviewed. GENERAL: The patient appeared well nourished and normally developed otherwise lethargic.. Vital signs as documented. HEAD: No signs of head trauma. EYES: Pupils are equal. Extraocular motions intact. EARS: Hearing grossly intact. MOUTH: Oropharynx is normal. NECK: No adenopathy, no JVD. CHEST: Chest with clear breath sounds bilaterally. No wheezes, rales, or rhonchi. CARDIAC: Regular rate and rhythm. S1 and S2, without murmurs, gallops, or rubs. VASCULAR: No Edema. Peripheral pulses normal and equal in all extremities. ABDOMEN: Soft, without detectable tenderness. No sign of distention. No rebound or guarding, and no masses palpated. Bowel Sounds normal. MUSCULOSKELETAL: Good range of motion of all major joints. Extremities without clubbing, cyanosis or edema. NEUROLOGIC EXAM: Alert and oriented x 3. No focal sensory or strength deficits. Speech normal. Follows commands. PSYCHIATRIC: Mood normal. SKIN: No rash or lesions. - Constitutional Vitals: Temp Pulse Resp BP Pulse Ox 98.6 F 68 20 123/63 98 07/31/16 11:26 07/31/16 11:26 07/31/16 11:26 07/31/16 11:26 07/31/16 11:56 General appearance: Present: no acute distress, well-nourished Results - Labs CBC & Chem 7: 07/29/16 06:16 07/31/16 07:11 Labs: Laboratory Last Values WBC 7.3 K/mm3 (4.5-11.0) 07/29/16 06:16 RBC 2.66 M/mm3 (3.65-5.03) L 07/29/16 06:16 Hgb 8.2 gm/dl (10.1-14.3) L 07/29/16 06:16 Hct 24.2 % (30.3-42.9) L 07/29/16 06:16 MCV 91 fl (79-97) 07/29/16 06:16 MCH 31 pg (28-32) 07/29/16 06:16 MCHC 34 % (30-34) 07/29/16 06:16 RDW 14.4 % (13.2-15.2) 07/29/16 06:16 Plt Count 303 K/mm3 (140-440) 07/29/16 06:16 Lymph % (Auto) 28.3 % (13.4-35.0) 07/29/16 06:16 [place] % (Auto) 6.6 % (0.0-7.3) 07/29/16 06:16 Eos % (Auto) 3.5 % (0.0-4.3) 07/29/16 06:16 Baso % (Auto) 1.0 % (0.0-1.8) 07/29/16 06:16 Lymph # 2.1 K/mm3 (1.2-5.4) 07/29/16 06:16 [place] # 0.5 K/mm3 (0.0-0.8) 07/29/16 06:16 Eos # 0.3 K/mm3 (0.0-0.4) 07/29/16 06:16 Baso # 0.1 K/mm3 (0.0-0.1) 07/29/16 06:16 Seg Neutrophils % 60.6 % (40.0-70.0) 07/29/16 06:16 Seg Neutrophils # 4.4 K/mm3 (1.8-7.7) 07/29/16 06:16 PT 13.9 Sec. (12.2-14.9) 07/24/16 14:54 INR 1.08 (0.87-1.13) 07/24/16 14:54 APTT 32.6 Sec. (24.2-36.6) 07/24/16 14:54 Sodium 133 mmol/L (137-145) L D 07/31/16 07:11 Potassium 4.2 mmol/L (3.6-5.0) 07/31/16 07:11 Chloride 98.0 mmol/L (98-107) 07/31/16 07:11 Carbon Dioxide 19 mmol/L (22-30) L 07/31/16 07:11 Anion Gap 20 mmol/L 07/31/16 07:11 BUN 30 mg/dL (7-17) H 07/31/16 07:11 Creatinine 4.5 mg/dL (0.7-1.2) H 07/31/16 07:11 Estimated GFR 12 ml/min 07/31/16 07:11 BUN/Creatinine Ratio 6.66 % 07/31/16 07:11 Glucose 57 mg/dL (65-100) L 07/31/16 07:11 POC Glucose 104 (70-105) 07/31/16 00:14 Calcium 7.8 mg/dL (8.4-10.2) L 07/31/16 07:11 Troponin T 0.015 ng/mL (0.00-0.029) 07/24/16 20:39 NT-Pro-B Natriuret Pep 28623 pg/mL (0-900) H 07/24/16 15:02 Urine Color Yellow (Yellow) 07/29/16 Unknown Urine Turbidity Slightly-cloudy (Clear) 07/29/16 Unknown Urine pH 6.0 (5.0-7.0) 07/29/16 Unknown Ur Specific [place] 1.009 (1.003-1.030) 07/29/16 Unknown Urine Protein 100 mg/dl mg/dL (Negative) 07/29/16 Unknown Urine Glucose (UA) 150 mg/dL (Negative) 07/29/16 Unknown Urine Ketones Neg mg/dL (Negative) 07/29/16 Unknown Urine Blood Neg (Negative) 07/29/16 Unknown Urine Nitrite Neg (Negative) 07/29/16 Unknown Urine Bilirubin Neg (Negative) 07/29/16 Unknown Urine Urobilinogen < 2.0 mg/dL (<2.0) 07/29/16 Unknown Ur Leukocyte Esterase Tr (Negative) 07/29/16 Unknown Urine WBC (Auto) 6.0 /HPF (0.0-6.0) 07/29/16 Unknown Urine RBC (Auto) 4.0 /HPF (0.0-6.0) 07/29/16 Unknown U Epithel Cells (Auto) 6.0 /HPF (0-13.0) 07/29/16 Unknown Amorphous Crystals Few 07/29/16 Unknown Urine Eosinophils None seen (None Seen) 07/29/16 Unknown
[2016-07-31] MEDS: XALATAN 0.005% OU SCH (18:23)
[2016-07-31] MEDS: ZOCOR PO SCH (21:37)
[2016-08-01] MEDS: BENADRYL PO SCH ×3 (05:53→17:17)
[2016-08-01] MEDS: HEPARIN SUB-Q SCH ×3 (05:54→21:39)
[2016-08-01 06:43] LABS: BUN/Creatinine Ratio 7.9; Calcium 7.8 mg/dL (8.4-10.2); Chloride 93.9 mmol/L (98-107); Potassium 4.5 mmol/L (3.6-5.0)
--- NOTE | 2016-08-01 08:52 | Progress Note ---
Assessment and Plan Impression: * Acute kidney injury on stage IV chronic kidney disease - b/l SCr 2.3-2.5mg/dL * Accelerated hypertension --Renal artery doppler negative for MARYURI * Chest pain * Anemia likely secondary to CKD * CAD * Acute on Chronic DHF Plan: * stable cr today * 24hr urine still not started * follow up cr cl * daily lytes * strict i/os * Continue antiHTN medications - BP improved; continue to follow * Renin:olesya pending * Avoid potential nephrotoxins * Dose medications for renal function Subjective Date of service: 08/01/16 Principal diagnosis: Chest pain, Acute on chronic DHF, Accelerated HTN, Acute on CKD Interval history: resting well in bed today Objective - Exam Narrative Exam: General appearance: well-developed, well-nourished EENT: ATNC Respiratory: Present: Clear to Ascultation Cardiology: regular, S1S2 Gastrointestinal: normal, no tenderness, no distended Integumentary: no rash Neurologic: no focal deficit Musculoskeletal: other (no edema) - Vital Signs Vital signs: Vital Signs - 12hr 07/31/16 07/31/16 07/31/16 21:23 21:36 21:37 Temperature Pulse Rate 64 64 Pulse Rate [ Left Dorsalis Pedis] Pulse Rate [ Right Radial] Respiratory Rate Blood Pressure 135/67 135/67 Blood Pressure [Left Arm] Blood Pressure [Right Arm] O2 Sat by Pulse 100 Oximetry 07/31/16 08/01/16 08/01/16 22:00 00:11 04:43 Temperature 97.6 F 98.4 F Pulse Rate 66 Pulse Rate [ 74 61 Left Dorsalis Pedis] Pulse Rate [ Right Radial] Respiratory 18 20 Rate Blood Pressure Blood Pressure 121/78 142/62 [Left Arm] Blood Pressure [Right Arm] O2 Sat by Pulse 98 99 Oximetry 08/01/16 08:42 Temperature 98.5 F Pulse Rate Pulse Rate [ Left Dorsalis Pedis] Pulse Rate [ 60 Right Radial] Respiratory 16 Rate Blood Pressure Blood Pressure [Left Arm] Blood Pressure 162/72 [Right Arm] O2 Sat by Pulse 100 Oximetry - Lab 07/29/16 06:16 08/01/16 05:10 Most recent lab results Calcium 7.8 mg/dL (8.4-10.2) L 08/01/16 05:10
[2016-08-01] MEDS: ALPHAGAN P 0.15% OU SCH ×3 (10:59→21:40)
[2016-08-01] MEDS: LONITEN PO SCH ×2 (11:00→21:39)
[2016-08-01] MEDS: NORMODYNE PO SCH ×2 (11:00→21:38)
[2016-08-01] MEDS: PROTONIX PO SCH (11:06)
[2016-08-01] MEDS: PLAVIX PO SCH (11:06)
[2016-08-01] MEDS: HALFPRIN EC PO SCH (11:06)
[2016-08-01] MEDS: CATAPRES PO SCH ×3 (11:07→21:39)
[2016-08-01] MEDS: IMDUR PO SCH (11:08)
[2016-08-01] MEDS: NORVASC PO SCH (11:09)
[2016-08-01] MEDS: NON-FORMULARY (Linaclotide [Linzess] 290 MCG) PO SCH (11:10)
--- NOTE | 2016-08-01 15:27 | Progress Note ---
Assessment and Plan Assessment and plan: 1. Accelerated hypertension- uncontrolled; improved with the increase IMDUR, cont clonidine and cont other med; monitor; f/u renal / cardilology for further recommendations 2. CAD with Chest pain-s/p remote stent ; AMI ruled out based on negative CE ; refused stress testing; cont meds; 3. Acute on chronic diastolic heart failure- compensated. cont current manx; continue to hold Bumex secondary to worsening renal indices 4. Acute kidney injury superimposed on CKD due to vasomotor nephropathy- cr continues to increase today; monitor; f/u renal for further recommendations; mild hyperkalemia- kayexalate; repeat;level in the a.m Bumex although nephrotoxic medications held. shows some improvement today. will reorder the 24 hr urine study 5. Anemia of chronic d/o- H/H now stable after acute fall; monitor; occult bloo d 6. DM- cont current insulin regime 7. Fall- Per patient's her legs gave out and she slid down to the floor with no trauma. No loss of consciousness.-d/w nurising and case management need PT OT evaluation and treat 8. Obesity 9. Hyponatremia- Stable. will monitor 9. Metabolic acidosis- Per Nephrology 10. Obstructive sleep [id number] Pulmonary- outpatient sleep study recommeded including PFT- On Discharge will need symptom relief with albuterol inhaler 11. DVT prophylaxis- d/c heparin; acute fall in H/h; SCD . History Interval history: f/u hypertension urgency; chest pain Patient seen and examined this morning in no acute distress, reports mild improvement in strength. states that for about 2 weeks Prior to admission she has not been able to ambulate appropriately due to bilateral leg weakness. Denies any chest pain, nausea, vomiting, diarrhea No fever noted blood pressure controlled . Hospitalist Physical - Physical exam Narrative exam: VITAL SIGNS: Reviewed. GENERAL: The patient appeared well nourished and normally developed otherwise lethargic.. Vital signs as documented. HEAD: No signs of head trauma. EYES: Pupils are equal. Extraocular motions intact. EARS: Hearing grossly intact. MOUTH: Oropharynx is normal. NECK: No adenopathy, no JVD. CHEST: Chest with clear breath sounds bilaterally. No wheezes, rales, or rhonchi. CARDIAC: Regular rate and rhythm. S1 and S2, without murmurs, gallops, or rubs. VASCULAR: No Edema. Peripheral pulses normal and equal in all extremities. ABDOMEN: Soft, without detectable tenderness. No sign of distention. No rebound or guarding, and no masses palpated. Bowel Sounds normal. MUSCULOSKELETAL: Good range of motion of all major joints. Extremities without clubbing, cyanosis or edema. NEUROLOGIC EXAM: Alert and oriented x 3. No focal sensory or strength deficits. Speech normal. Follows commands. PSYCHIATRIC: Mood normal. SKIN: No rash or lesions. - Constitutional Vitals: Temp Pulse Resp BP Pulse Ox 98.2 F 67 16 158/72 99 08/01/16 13:16 08/01/16 13:16 08/01/16 13:16 08/01/16 13:16 08/01/16 13:16 General appearance: Present: no acute distress, well-nourished Results - Labs CBC & Chem 7: 07/29/16 06:16 08/01/16 05:10 Labs: Laboratory Last Values WBC 7.3 K/mm3 (4.5-11.0) 07/29/16 06:16 RBC 2.66 M/mm3 (3.65-5.03) L 07/29/16 06:16 Hgb 8.2 gm/dl (10.1-14.3) L 07/29/16 06:16 Hct 24.2 % (30.3-42.9) L 07/29/16 06:16 MCV 91 fl (79-97) 07/29/16 06:16 MCH 31 pg (28-32) 07/29/16 06:16 MCHC 34 % (30-34) 07/29/16 06:16 RDW 14.4 % (13.2-15.2) 07/29/16 06:16 Plt Count 303 K/mm3 (140-440) 07/29/16 06:16 Lymph % (Auto) 28.3 % (13.4-35.0) 07/29/16 06:16 [place] % (Auto) 6.6 % (0.0-7.3) 07/29/16 06:16 Eos % (Auto) 3.5 % (0.0-4.3) 07/29/16 06:16 Baso % (Auto) 1.0 % (0.0-1.8) 07/29/16 06:16 Lymph # 2.1 K/mm3 (1.2-5.4) 07/29/16 06:16 [place] # 0.5 K/mm3 (0.0-0.8) 07/29/16 06:16 Eos # 0.3 K/mm3 (0.0-0.4) 07/29/16 06:16 Baso # 0.1 K/mm3 (0.0-0.1) 07/29/16 06:16 Seg Neutrophils % 60.6 % (40.0-70.0) 07/29/16 06:16 Seg Neutrophils # 4.4 K/mm3 (1.8-7.7) 07/29/16 06:16 PT 13.9 Sec. (12.2-14.9) 07/24/16 14:54 INR 1.08 (0.87-1.13) 07/24/16 14:54 APTT 32.6 Sec. (24.2-36.6) 07/24/16 14:54 Sodium 130 mmol/L (137-145) L 08/01/16 05:10 Potassium 4.5 mmol/L (3.6-5.0) 08/01/16 05:10 Chloride 93.9 mmol/L (98-107) L 08/01/16 05:10 Carbon Dioxide 19 mmol/L (22-30) L 08/01/16 05:10 Anion Gap 22 mmol/L 08/01/16 05:10 BUN 34 mg/dL (7-17) H 08/01/16 05:10 Creatinine 4.3 mg/dL (0.7-1.2) H 08/01/16 05:10 Estimated GFR 12 ml/min 08/01/16 05:10 BUN/Creatinine Ratio 7.90 % 08/01/16 05:10 Glucose 144 mg/dL (65-100) H 08/01/16 05:10 POC Glucose 238 (70-105) H 08/01/16 12:55 Calcium 7.8 mg/dL (8.4-10.2) L 08/01/16 05:10 Troponin T 0.015 ng/mL (0.00-0.029) 07/24/16 20:39 NT-Pro-B Natriuret Pep 77655 pg/mL (0-900) H 07/24/16 15:02 Renin 0.13 ng/mL/h (0.25-5.82) L 07/26/16 13:50 Aldosterone 3 ng/dL () 07/26/16 13:50 Aldosterone/Renin Dir 23.1 Ratio (0.9-28.9) 07/26/16 13:50 Urine Color Yellow (Yellow) 07/29/16 Unknown Urine Turbidity Slightly-cloudy (Clear) 07/29/16 Unknown Urine pH 6.0 (5.0-7.0) 07/29/16 Unknown Ur Specific [place] 1.009 (1.003-1.030) 07/29/16 Unknown Urine Protein 100 mg/dl mg/dL (Negative) 07/29/16 Unknown Urine Glucose (UA) 150 mg/dL (Negative) 07/29/16 Unknown Urine Ketones Neg mg/dL (Negative) 07/29/16 Unknown Urine Blood Neg (Negative) 07/29/16 Unknown Urine Nitrite Neg (Negative) 07/29/16 Unknown Urine Bilirubin Neg (Negative) 07/29/16 Unknown Urine Urobilinogen < 2.0 mg/dL (<2.0) 07/29/16 Unknown Ur Leukocyte Esterase Tr (Negative) 07/29/16 Unknown Urine WBC (Auto) 6.0 /HPF (0.0-6.0) 07/29/16 Unknown Urine RBC (Auto) 4.0 /HPF (0.0-6.0) 07/29/16 Unknown U Epithel Cells (Auto) 6.0 /HPF (0-13.0) 07/29/16 Unknown Amorphous Crystals Few 07/29/16 Unknown Urine Eosinophils None seen (None Seen) 07/29/16 Unknown
[2016-08-01] MEDS: XALATAN 0.005% OU SCH (18:36)
[2016-08-01] MEDS: ATIVAN PO SCH (21:39)
[2016-08-01] MEDS: ZOCOR PO SCH (21:39)
[2016-08-01] MEDS: D50W (25GM) IV PRN (22:25)
[2016-08-02] MEDS: D50W (25GM) IV PRN ×3 (04:30→08:07)
[2016-08-02] MEDS: HEPARIN SUB-Q SCH ×3 (05:05→22:51)
[2016-08-02] MEDS: BENADRYL PO SCH ×3 (05:05→16:49)
[2016-08-02 07:36] LABS: BUN/Creatinine Ratio 8.04; Chloride 92.5 mmol/L (98-107); Potassium 4.5 mmol/L (3.6-5.0)
[2016-08-02] MEDS: CATAPRES PO SCH ×3 (08:11→23:00)
--- NOTE | 2016-08-02 08:15 | Progress Note ---
Assessment and Plan Impression: * Acute kidney injury on stage IV chronic kidney disease - b/l SCr 2.3-2.5mg/dL * Accelerated hypertension --Renal artery doppler negative for MARYURI * Chest pain * Anemia likely secondary to CKD * CAD * Acute on Chronic DHF Plan: * stable cr today * 24hr urine pending * repeat cxr * restart diuretics * follow up cr cl * daily lytes * strict i/os * Continue antiHTN medications - BP improved; continue to follow * Renin:olesya pending * Avoid potential nephrotoxins * Dose medications for renal function Subjective Date of service: 08/02/16 Principal diagnosis: Chest pain, Acute on chronic DHF, Accelerated HTN, Acute on CKD Interval history: resting well in bed today Objective - Exam Narrative Exam: General appearance: well-developed, well-nourished EENT: ATNC Respiratory: Present: Clear to Ascultation Cardiology: regular, S1S2 Gastrointestinal: normal, no tenderness, no distended Integumentary: no rash Neurologic: no focal deficit Musculoskeletal: other (no edema) - Vital Signs Vital signs: Vital Signs - 12hr 08/01/16 08/01/16 08/01/16 21:38 21:39 22:00 Temperature Pulse Rate 67 67 67 Pulse Rate [ Left Dorsalis Pedis] Respiratory Rate Blood Pressure 187/82 187/82 Blood Pressure [Left Arm] O2 Sat by Pulse Oximetry 08/01/16 08/02/16 08/02/16 23:56 04:55 08:11 Temperature 97.6 F 97.8 F Pulse Rate Pulse Rate [ 64 84 Left Dorsalis Pedis] Respiratory 18 20 Rate Blood Pressure 182/79 Blood Pressure 132/60 182/79 [Left Arm] O2 Sat by Pulse 94 99 Oximetry - Lab 07/29/16 06:16 08/02/16 06:32 Most recent lab results Calcium 8.0 mg/dL (8.4-10.2) L 08/02/16 06:32
--- NOTE | 2016-08-02 10:18 | XRay Report ---
CHEST TWO VIEWS: 08/02/16 CLINICAL: Congestive heart failure. COMPARISON: 07/27/16 FINDINGS: Normal heart and pulmonary vasculature. New lateral opacification in the right lung base and new opacification of the right posterior costophrenic angle with a meniscus sign on the lateral view. IMPRESSION: A new small right pleural effusion. No pulmonary edema.
[2016-08-02] MEDS: LONITEN PO SCH ×2 (10:30→22:50)
[2016-08-02] MEDS: ALPHAGAN P 0.15% OU SCH ×3 (10:30→22:59)
[2016-08-02] MEDS: IMDUR PO SCH (10:30)
[2016-08-02] MEDS: PLAVIX PO SCH (10:30)
[2016-08-02] MEDS: NON-FORMULARY (Linaclotide [Linzess] 290 MCG) PO SCH ×2 (10:30→16:20)
[2016-08-02] MEDS: PROTONIX PO SCH (10:30)
[2016-08-02] MEDS: HALFPRIN EC PO SCH (10:30)
--- NOTE | 2016-08-02 12:03 | Progress Note ---
Assessment and Plan Chest pain added ranexa stress MPI 05/2015: negative for ischemia continue Imdur Accelerated hypertension BP improved Acute on chronic diastolic heart failure EF 50% per echo 10/2014 bumex on hold due to worsening renal indices CAD s/p PCI of LAD and RCA [facility] 2009: patent stents Echo 10/2014: EF 50% Acute on chronic kidney disease Anemia Subjective Date of service: 08/02/16 Principal diagnosis: Chest pain, Acute on chronic DHF, Accelerated HTN, Acute on CKD Interval history: Patient states some leg pain at times and also chest pain and shortness of breath with exertion Objective Vital Signs Temp Pulse Pulse Pulse Resp BP BP 08/02/16 08:11 182/79 08/02/16 08:00 97.3 F L 56 L 20 134/64 08/02/16 04:55 97.8 F 84 20 182/79 08/01/16 23:56 97.6 F 64 18 132/60 08/01/16 22:00 67 08/01/16 21:39 67 187/82 08/01/16 21:38 67 187/82 08/01/16 20:10 20 08/01/16 20:09 98.2 F 68 18 187/82 08/01/16 17:42 98.1 F 60 16 08/01/16 17:00 64 154/78 08/01/16 14:00 70 08/01/16 13:16 98.2 F 67 16 BP Pulse Ox 08/02/16 08:11 08/02/16 08:00 100 08/02/16 04:55 99 08/01/16 23:56 94 08/01/16 22:00 08/01/16 21:39 08/01/16 21:38 08/01/16 20:10 08/01/16 20:09 99 08/01/16 17:42 139/66 99 08/01/16 17:00 08/01/16 14:00 08/01/16 13:16 158/72 99 - Physical Examination General: No Apparent Distress HEENT: Positive: EOMI, Normocephaly, Mucus Membranes Moist Neck: Positive: neck supple, trachea midline, JVD/HJR Cardiac: Positive: Reg Rate and Rhythm Lungs: Positive: clear to auscultation Neuro: Positive: Grossly Intact Abdomen: Positive: Soft, Active Bowel Sounds. Negative: Tender Skin: Positive: Clear. Negative: Rash Musculoskeletal: Normal Range of Motion Extremities: Absent: edema - Labs and Meds Comprehensive Metabolic Panel 08/02/16 Range/Units 06:32 Sodium 128 L (137-145) mmol/L Potassium 4.5 (3.6-5.0) mmol/L Chloride 92.5 L (98-107) mmol/L Carbon Dioxide 20 L (22-30) mmol/L BUN 37 H (7-17) mg/dL Creatinine 4.6 H (0.7-1.2) mg/dL Glucose 85 (65-100) mg/dL Calcium 8.0 L (8.4-10.2) mg/dL - Imaging and Cardiology Echo: report reviewed - Telemetry EKG Rhythm: Sinus Rhythm (no afib)
[2016-08-02] MEDS: NORMODYNE PO SCH ×2 (12:12→22:50)
[2016-08-02] MEDS: NORVASC PO SCH (12:13)
[2016-08-02 13:16] LABS: Calcium, Urine < 0.8 mg/dL (6.8-21.3)
[2016-08-02 13:17] LABS: Calcium 24 Hour,Urine TNR
--- NOTE | 2016-08-02 13:20 | Progress Note ---
Assessment and Plan Assessment and plan: 1. Accelerated hypertension- uncontrolled; improved with the increase IMDUR, cont clonidine and cont other med; monitor; f/u renal / cardilology for further recommendations 2. CAD with Chest pain-s/p remote stent ; Ranexa added. AMI ruled out based on negative CE; refused stress testing; cont meds; she did have a stress test and 05/2015 which was negative 3. Acute on chronic diastolic heart failure- compensated. cont current manx; continue to hold Bumex secondary to worsening renal indices 4. Acute kidney injury superimposed on CKD due to vasomotor nephropathy- cr continues to increase today; monitor; f/u renal for further recommendations; mild hyperkalemia- kayexalate; repeat;level in the a.m Bumex although nephrotoxic medications held. shows some improvement today. Pending the 24 hr urine study 5. Anemia of chronic d/o- H/H now stable after acute fall; monitor; occult bloo d 6. DM- cont current insulin regime 7. Fall- Per patient's her legs gave out and she slid down to the floor with no trauma. No loss of consciousness.-d/w nurising and case management need PT OT evaluation and treat 8. Obesity 9. Hyponatremia- Stable. will monitor 9. Metabolic acidosis- Per Nephrology 10. Obstructive sleep [id number] Pulmonary- outpatient sleep study recommeded including PFT- On Discharge will need symptom relief with albuterol inhaler 11. DVT prophylaxis- d/c heparin; acute fall in H/h; SCD History Interval history: f/u hypertension urgency; chest pain Patient seen and examined this morning in no acute distress, reports mild improvement in strength. states that for about 2 weeks Prior to admission she has not been able to ambulate appropriately due to bilateral leg weakness. Today reporting some chest pain shortness of breath with exertion Denies any, nausea, vomiting, diarrhea No fever noted blood pressure controlled . Hospitalist Physical - Physical exam Narrative exam: VITAL SIGNS: Reviewed. GENERAL: The patient appeared well nourished and normally developed otherwise lethargic.. Vital signs as documented. HEAD: No signs of head trauma. EYES: Pupils are equal. Extraocular motions intact. EARS: Hearing grossly intact. MOUTH: Oropharynx is normal. NECK: No adenopathy, no JVD. CHEST: Chest with clear breath sounds bilaterally. No wheezes, rales, or rhonchi. CARDIAC: Regular rate and rhythm. S1 and S2, without murmurs, gallops, or rubs. VASCULAR: No Edema. Peripheral pulses normal and equal in all extremities. ABDOMEN: Soft, without detectable tenderness. No sign of distention. No rebound or guarding, and no masses palpated. Bowel Sounds normal. MUSCULOSKELETAL: Good range of motion of all major joints. Extremities without clubbing, cyanosis or edema. NEUROLOGIC EXAM: Alert and oriented x 3. No focal sensory or strength deficits. Speech normal. Follows commands. PSYCHIATRIC: Mood normal. SKIN: No rash or lesions. - Constitutional Vitals: Temp Pulse Resp BP Pulse Ox 98.1 F 56 L 20 132/60 96 08/02/16 12:57 08/02/16 08:00 08/02/16 12:57 08/02/16 12:57 08/02/16 10:00 General appearance: Present: no acute distress, well-nourished Results - Labs CBC & Chem 7: 07/29/16 06:16 08/02/16 06:32 Labs: Laboratory Last Values WBC 7.3 K/mm3 (4.5-11.0) 07/29/16 06:16 RBC 2.66 M/mm3 (3.65-5.03) L 07/29/16 06:16 Hgb 8.2 gm/dl (10.1-14.3) L 07/29/16 06:16 Hct 24.2 % (30.3-42.9) L 07/29/16 06:16 MCV 91 fl (79-97) 07/29/16 06:16 MCH 31 pg (28-32) 07/29/16 06:16 MCHC 34 % (30-34) 07/29/16 06:16 RDW 14.4 % (13.2-15.2) 07/29/16 06:16 Plt Count 303 K/mm3 (140-440) 07/29/16 06:16 Lymph % (Auto) 28.3 % (13.4-35.0) 07/29/16 06:16 [place] % (Auto) 6.6 % (0.0-7.3) 07/29/16 06:16 Eos % (Auto) 3.5 % (0.0-4.3) 07/29/16 06:16 Baso % (Auto) 1.0 % (0.0-1.8) 07/29/16 06:16 Lymph # 2.1 K/mm3 (1.2-5.4) 07/29/16 06:16 [place] # 0.5 K/mm3 (0.0-0.8) 07/29/16 06:16 Eos # 0.3 K/mm3 (0.0-0.4) 07/29/16 06:16 Baso # 0.1 K/mm3 (0.0-0.1) 07/29/16 06:16 Seg Neutrophils % 60.6 % (40.0-70.0) 07/29/16 06:16 Seg Neutrophils # 4.4 K/mm3 (1.8-7.7) 07/29/16 06:16 PT 13.9 Sec. (12.2-14.9) 07/24/16 14:54 INR 1.08 (0.87-1.13) 07/24/16 14:54 APTT 32.6 Sec. (24.2-36.6) 07/24/16 14:54 Sodium 128 mmol/L (137-145) L 08/02/16 06:32 Potassium 4.5 mmol/L (3.6-5.0) 08/02/16 06:32 Chloride 92.5 mmol/L (98-107) L 08/02/16 06:32 Carbon Dioxide 20 mmol/L (22-30) L 08/02/16 06:32 Anion Gap 20 mmol/L 08/02/16 06:32 BUN 37 mg/dL (7-17) H 08/02/16 06:32 Creatinine 4.6 mg/dL (0.7-1.2) H 08/02/16 06:32 Estimated GFR 11 ml/min 08/02/16 06:32 BUN/Creatinine Ratio 8.04 % 08/02/16 06:32 Glucose 85 mg/dL (65-100) 08/02/16 06:32 POC Glucose 186 (70-105) H 08/02/16 05:03 Calcium 8.0 mg/dL (8.4-10.2) L 08/02/16 06:32 Troponin T 0.015 ng/mL (0.00-0.029) 07/24/16 20:39 NT-Pro-B Natriuret Pep 63518 pg/mL (0-900) H 07/24/16 15:02 Renin 0.13 ng/mL/h (0.25-5.82) L 07/26/16 13:50 Aldosterone 3 ng/dL () 07/26/16 13:50 Aldosterone/Renin Dir 23.1 Ratio (0.9-28.9) 07/26/16 13:50 Urine Color Yellow (Yellow) 07/29/16 Unknown Urine Turbidity Slightly-cloudy (Clear) 07/29/16 Unknown Urine pH 6.0 (5.0-7.0) 07/29/16 Unknown Ur Specific [place] 1.009 (1.003-1.030) 07/29/16 Unknown Urine Protein 100 mg/dl mg/dL (Negative) 07/29/16 Unknown Urine Glucose (UA) 150 mg/dL (Negative) 07/29/16 Unknown Urine Ketones Neg mg/dL (Negative) 07/29/16 Unknown Urine Blood Neg (Negative) 07/29/16 Unknown Urine Nitrite Neg (Negative) 07/29/16 Unknown Urine Bilirubin Neg (Negative) 07/29/16 Unknown Urine Urobilinogen < 2.0 mg/dL (<2.0) 07/29/16 Unknown Ur Leukocyte Esterase Tr (Negative) 07/29/16 Unknown Urine WBC (Auto) 6.0 /HPF (0.0-6.0) 07/29/16 Unknown Urine RBC (Auto) 4.0 /HPF (0.0-6.0) 07/29/16 Unknown U Epithel Cells (Auto) 6.0 /HPF (0-13.0) 07/29/16 Unknown Amorphous Crystals Few 07/29/16 Unknown Urine Eosinophils None seen (None Seen) 07/29/16 Unknown Urine Total Volume 1450 08/01/16 17:44 Urine Creatinine 62.0 mg/dL (0.1-20.0) H 08/01/16 17:44 Ur Creatinine 24 Hour 0.9 (0.8-2.8) 08/01/16 17:44 Urine Chloride < 10 mEq/L (110-250) L 08/01/16 17:44 Ur Chloride 24 Hour TNR 12/30/16 17:44 Urine Urea Nitrogen 233 08/01/16 17:44 Ur Urea Nitrogen 24 Hr 3.38 08/01/16 17:44 Urine Calcium < 0.8 mg/dL (6.8-21.3) L 08/01/16 17:44 Ur Calcium 24 Hr TNR 08/01/16 17:44
[2016-08-02] MEDS ORDERED: PROVENTIL IH PRN (15:12)
[2016-08-02] MEDS: DUONEB 0.5 MG-3 MG/3 ML SOLN IH SCH ×2 (15:25→20:55)
[2016-08-02] MEDS: RANEXA ER PO SCH ×2 (16:17→22:51)
[2016-08-02] MEDS ORDERED: LASIX IV SCH (18:00)
[2016-08-02] MEDS: XALATAN 0.005% OU SCH (22:50)
[2016-08-02] MEDS: ZOCOR PO SCH (22:50)
[2016-08-02] MEDS: ATIVAN PO SCH (22:51)
[2016-08-03] MEDS: D50W (25GM) IV PRN (03:30)
[2016-08-03] MEDS: BENADRYL PO SCH ×2 (04:35→11:04)
[2016-08-03] MEDS: CATAPRES PO SCH ×3 (08:17→22:23)
[2016-08-03 09:13] LABS: BUN/Creatinine Ratio 8.37; Calcium 8.1 mg/dL (8.4-10.2); Chloride 91.8 mmol/L (98-107); Potassium 5.5 mmol/L (3.6-5.0)
[2016-08-03] MEDS: DUONEB 0.5 MG-3 MG/3 ML SOLN IH SCH (09:56)
[2016-08-03] MEDS: RANEXA ER PO SCH ×2 (11:02→22:24)
[2016-08-03] MEDS: PLAVIX PO SCH (11:02)
[2016-08-03] MEDS: LONITEN PO SCH ×2 (11:02→22:24)
[2016-08-03] MEDS: HALFPRIN EC PO SCH (11:02)
[2016-08-03] MEDS: NORMODYNE PO SCH ×2 (11:03→22:24)
[2016-08-03] MEDS: NORVASC PO SCH (11:03)
[2016-08-03] MEDS: PROTONIX PO SCH (11:03)
[2016-08-03] MEDS: IMDUR PO SCH (11:03)
[2016-08-03] MEDS: ALPHAGAN P 0.15% OU SCH ×3 (11:05→22:25)
[2016-08-03] MEDS: TYLENOL PO PRN ×2 (11:10→22:21)
--- NOTE | 2016-08-03 11:13 | Progress Note ---
Assessment and Plan Chest pain added ranexa stress MPI 05/2015: negative for ischemia continue Imdur Accelerated hypertension BP improved Acute on chronic diastolic heart failure EF 50% per echo 10/2014 bumex on hold due to worsening renal indices CAD s/p PCI of LAD and RCA [facility] 2009: patent stents Echo 10/2014: EF 50% Acute on chronic kidney disease Anemia Subjective Date of service: 08/03/16 Principal diagnosis: Chest pain, Acute on chronic DHF, Accelerated HTN, Acute on CKD Interval history: pt has no more chest pain but sob with exertion Objective Vital Signs Temp Pulse Pulse Pulse Pulse Resp Resp 08/03/16 10:06 53 L 16 08/03/16 09:59 08/03/16 09:56 54 L 16 08/03/16 09:55 08/03/16 08:00 97.6 F 54 L 16 08/03/16 06:44 97.8 F 56 L 20 08/03/16 02:00 97.5 F L 67 18 08/02/16 21:05 69 16 08/02/16 20:55 68 16 08/02/16 20:00 97.4 F L 67 20 08/02/16 19:30 83 22 08/02/16 15:32 68 16 08/02/16 15:25 71 20 08/02/16 15:06 08/02/16 14:56 83 08/02/16 12:57 98.1 F 20 08/02/16 12:13 08/02/16 12:12 Resp BP BP Pulse Ox 08/03/16 10:06 08/03/16 09:59 100 08/03/16 09:56 08/03/16 09:55 100 08/03/16 08:00 141/61 98 08/03/16 06:44 131/58 08/03/16 02:00 150/104 08/02/16 21:05 08/02/16 20:55 08/02/16 20:00 129/61 99 08/02/16 19:30 18 08/02/16 15:32 08/02/16 15:25 08/02/16 15:06 100 08/02/16 14:56 132/60 08/02/16 12:57 132/60 08/02/16 12:13 189/91 08/02/16 12:12 189/91 - Physical Examination General: No Apparent Distress HEENT: Positive: EOMI, Normocephaly, Mucus Membranes Moist Neck: Positive: neck supple, trachea midline, JVD/HJR Cardiac: Positive: Reg Rate and Rhythm Lungs: Positive: clear to auscultation Neuro: Positive: Grossly Intact Abdomen: Positive: Soft, Active Bowel Sounds. Negative: Tender Skin: Positive: Clear. Negative: Rash Musculoskeletal: Normal Range of Motion Extremities: Absent: edema - Labs and Meds Comprehensive Metabolic Panel 08/03/16 Range/Units 08:33 Sodium 125 L (137-145) mmol/L Potassium 5.5 H D (3.6-5.0) mmol/L Chloride 91.8 L (98-107) mmol/L Carbon Dioxide 17 L (22-30) mmol/L BUN 36 H (7-17) mg/dL Creatinine 4.3 H (0.7-1.2) mg/dL Glucose 152 H (65-100) mg/dL Calcium 8.1 L (8.4-10.2) mg/dL - Imaging and Cardiology Echo: report reviewed - Telemetry EKG Rhythm: Sinus Rhythm (nsr no afib)
--- NOTE | 2016-08-03 11:53 | Progress Note ---
Assessment and Plan - Patient Problems (1) Accelerated hypertension Current Visit: Yes Status: Acute (2) Acute on chronic diastolic heart failure Current Visit: Yes Status: Acute (3) Acute on chronic renal failure Current Visit: Yes Status: Acute (4) CAD (coronary artery disease) Current Visit: Yes Status: Chronic Qualifiers: Coronary Disease-Associated Artery/Lesion type: [place] artery (5) Diabetes mellitus, insulin dependent (IDDM), uncontrolled Current Visit: Yes Status: Chronic Qualifiers: Diabetes mellitus complication detail: with chronic kidney disease (6) Stented coronary artery Current Visit: Yes Status: Chronic (7) Pleural effusion due to congestive heart failure Current Visit: Yes Status: Acute (8) COPD (chronic obstructive pulmonary disease) Current Visit: Yes Status: Acute Subjective Principal diagnosis: Chest pain, Acute on chronic DHF, Accelerated HTN, Acute on CKD Interval history: reports sob Objective Vital Signs - 12hr 08/03/16 08/03/16 08/03/16 02:00 06:44 08:00 Temperature 97.5 F L 97.8 F 97.6 F Pulse Rate [ Bilateral Throughout] Pulse Rate [ 67 54 L Left Radial] Pulse Rate [ 56 L Right Radial] Respiratory 18 20 16 Rate Respiratory Rate [Bilateral Throughout] Blood Pressure 150/104 131/58 141/61 [Left Arm] O2 Sat by Pulse 98 Oximetry 08/03/16 08/03/16 08/03/16 09:55 09:56 09:59 Temperature Pulse Rate [ 54 L Bilateral Throughout] Pulse Rate [ Left Radial] Pulse Rate [ Right Radial] Respiratory Rate Respiratory 16 Rate [Bilateral Throughout] Blood Pressure [Left Arm] O2 Sat by Pulse 100 100 Oximetry 08/03/16 10:06 Temperature Pulse Rate [ 53 L Bilateral Throughout] Pulse Rate [ Left Radial] Pulse Rate [ Right Radial] Respiratory Rate Respiratory 16 Rate [Bilateral Throughout] Blood Pressure [Left Arm] O2 Sat by Pulse Oximetry Constitutional: no acute distress, alert, other (morbidly obese) Eyes: non-icteric ENT: oropharynx moist Neck: supple Ascultation: Bilateral: rales (at base) Cardiovascular: regular rate and rhythm Gastrointestinal: normoactive bowel sounds, soft, non-tender, non-distended Integumentary: normal Extremities: no cyanosis, no edema Neurologic: normal mental status, non-focal exam, CN II-XII normal Psychiatric: mood appropriate, affect normal CBC and BMP: 12/27/16 06:16 08/03/16 08:33 ABG, PT/INR, D-dimer: PT/INR, D-dimer PT 13.9 Sec. (12.2-14.9) 07/24/16 14:54 INR 1.08 (0.87-1.13) 07/24/16 14:54 Abnormal lab findings: Abnormal Labs 07/25/16 07/25/16 07/25/16 00:57 04:14 04:14 RBC 2.88 L Hgb 8.7 L Hct 25.7 L [place] % (Auto) Sodium Potassium Chloride Carbon Dioxide 19 L BUN 19 H Creatinine 3.1 H Glucose 237 H POC Glucose 279 H Calcium 8.0 L Renin Urine Creatinine Urine Chloride Urine Calcium 07/25/16 07/25/16 07/25/16 11:50 16:32 22:21 RBC Hgb Hct [place] % (Auto) Sodium Potassium Chloride Carbon Dioxide BUN Creatinine Glucose POC Glucose 209 H 218 H 256 H Calcium Renin Urine Creatinine Urine Chloride Urine Calcium 07/26/16 07/26/16 07/26/16 08:36 10:32 11:53 RBC Hgb Hct [place] % (Auto) Sodium 133 L Potassium Chloride 97.3 L Carbon Dioxide 18 L BUN 20 H Creatinine 3.2 H Glucose 274 H POC Glucose 212 H 296 H Calcium 7.9 L Renin Urine Creatinine Urine Chloride Urine Calcium 07/26/16 07/26/16 07/26/16 13:50 17:18 21:44 RBC Hgb Hct [place] % (Auto) Sodium Potassium Chloride Carbon Dioxide BUN Creatinine Glucose POC Glucose 142 H 168 H Calcium Renin 0.13 L Urine Creatinine Urine Chloride Urine Calcium 07/27/16 07/27/16 07/27/16 08:06 08:06 08:24 RBC 2.81 L Hgb 8.7 L Hct 25.3 L [place] % (Auto) 7.8 H Sodium Potassium Chloride Carbon Dioxide 21 L BUN 23 H Creatinine 3.6 H Glucose 248 H POC Glucose 255 H Calcium Renin Urine Creatinine Urine Chloride Urine Calcium 07/27/16 07/28/16 07/28/16 11:41 00:21 00:35 RBC Hgb Hct [place] % (Auto) Sodium Potassium Chloride Carbon Dioxide BUN Creatinine Glucose POC Glucose 191 H < 40 L 227 H Calcium Renin Urine Creatinine Urine Chloride Urine Calcium 07/28/16 07/28/16 07/28/16 06:26 07:53 12:59 RBC Hgb Hct [place] % (Auto) Sodium 136 L Potassium 5.1 H Chloride Carbon Dioxide 19 L BUN 28 H Creatinine 4.2 H Glucose 180 H POC Glucose 216 H 230 H Calcium Renin Urine Creatinine Urine Chloride Urine Calcium 07/28/16 07/29/16 07/29/16 16:18 06:16 06:16 RBC 2.66 L Hgb 8.2 L Hct 24.2 L [place] % (Auto) Sodium Potassium Chloride Carbon Dioxide 18 L BUN 26 H Creatinine 4.1 H Glucose 175 H POC Glucose 108 H Calcium 7.7 L Renin Urine Creatinine Urine Chloride Urine Calcium 07/29/16 07/29/16 07/29/16 07:22 13:05 16:10 RBC Hgb Hct [place] % (Auto) Sodium Potassium Chloride Carbon Dioxide BUN Creatinine Glucose POC Glucose 203 H 233 H 143 H Calcium Renin Urine Creatinine Urine Chloride Urine Calcium 07/29/16 07/30/16 07/30/16 21:26 06:33 12:27 RBC Hgb Hct [place] % (Auto) Sodium Potassium Chloride Carbon Dioxide 21 L BUN 30 H Creatinine 4.3 H Glucose POC Glucose 69 L 152 H Calcium 8.2 L Renin Urine Creatinine Urine Chloride Urine Calcium 07/30/16 07/30/16 07/31/16 17:10 18:50 07:11 RBC Hgb Hct [place] % (Auto) Sodium 133 L D Potassium Chloride Carbon Dioxide 19 L BUN 30 H Creatinine 4.5 H Glucose 57 L POC Glucose 60 L 42 L Calcium 7.8 L Renin Urine Creatinine Urine Chloride Urine Calcium 07/31/16 07/31/16 07/31/16 11:23 15:32 20:36 RBC Hgb Hct [place] % (Auto) Sodium Potassium Chloride Carbon Dioxide BUN Creatinine Glucose POC Glucose 163 H 161 H 169 H Calcium Renin Urine Creatinine Urine Chloride Urine Calcium 08/01/16 08/01/16 08/01/16 05:10 07:29 12:55 RBC Hgb Hct [place] % (Auto) Sodium 130 L Potassium Chloride 93.9 L Carbon Dioxide 19 L BUN 34 H Creatinine 4.3 H Glucose 144 H POC Glucose 196 H 238 H Calcium 7.8 L Renin Urine Creatinine Urine Chloride Urine Calcium 08/01/16 08/01/16 08/01/16 15:58 17:44 20:57 RBC Hgb Hct [place] % (Auto) Sodium Potassium Chloride Carbon Dioxide BUN Creatinine Glucose POC Glucose 124 H 48 L Calcium Renin Urine Creatinine 62.0 H Urine Chloride < 10 L Urine Calcium < 0.8 L 08/01/16 08/01/16 08/02/16 21:34 22:10 04:31 RBC Hgb Hct [place] % (Auto) Sodium Potassium Chloride Carbon Dioxide BUN Creatinine Glucose POC Glucose 60 L 68 L < 40 L Calcium Renin Urine Creatinine Urine Chloride Urine Calcium 08/02/16 08/02/16 08/02/16 05:03 06:32 07:58 RBC Hgb Hct [place] % (Auto) Sodium 128 L Potassium Chloride 92.5 L Carbon Dioxide 20 L BUN 37 H Creatinine 4.6 H Glucose POC Glucose 186 H 55 L Calcium 8.0 L Renin Urine Creatinine Urine Chloride Urine Calcium 08/02/16 08/02/16 08/02/16 09:11 11:24 16:32 RBC Hgb Hct [place] % (Auto) Sodium Potassium Chloride Carbon Dioxide BUN Creatinine Glucose POC Glucose 164 H 185 H 238 H Calcium Renin Urine Creatinine Urine Chloride Urine Calcium 08/02/16 08/03/16 08/03/16 22:39 03:14 03:35 RBC Hgb Hct [place] % (Auto) Sodium Potassium Chloride Carbon Dioxide BUN Creatinine Glucose POC Glucose 63 L < 40 L 188 H Calcium Renin Urine Creatinine Urine Chloride Urine Calcium 08/03/16 08:33 RBC Hgb Hct [place] % (Auto) Sodium 125 L Potassium 5.5 H D Chloride 91.8 L Carbon Dioxide 17 L BUN 36 H Creatinine 4.3 H Glucose 152 H POC Glucose Calcium 8.1 L Renin Urine Creatinine Urine Chloride Urine Calcium Chest x-ray: report reviewed, image reviewed
[2016-08-03] MEDS ORDERED: KAYEXALATE PO ONE (12:33)
--- NOTE | 2016-08-03 13:33 | Progress Note ---
Assessment and Plan Assessment and plan: 1. Accelerated hypertension- uncontrolled; improved with the increase IMDUR, cont clonidine and cont other med; monitor; f/u renal / cardilology for further recommendations 2. CAD with Chest pain-s/p remote stent ; Ranexa added. AMI ruled out based on negative CE; refused stress testing; cont meds; she did have a stress test and 05/2015 which was negative 3. Acute on chronic diastolic heart failure- compensated. cont current manx; continue to hold Bumex secondary to worsening renal indices 4. Acute kidney injury superimposed on CKD due to vasomotor nephropathy- cr continues to increase today; monitor; f/u renal for further recommendations; mild hyperkalemia- kayexalate; repeat;level in the a.m Bumex although nephrotoxic medications held. shows some improvement today. Pending the 24 hr urine study 5. Anemia of chronic d/o- H/H now stable after acute fall; monitor; occult bloo d 6. DM- cont current insulin regime 7. Fall- Per patient's her legs gave out and she slid down to the floor with no trauma. No loss of consciousness.-d/w nurising and case management need PT OT evaluation and treat 8. Obesity 9. Hyponatremia-worse today and now 125. Will discuss with lining layer. Patient with increased swelling. There are a little diuretic or dialysis of some sort. 10. Hyperkalemia-we'll give a dose of Kayexalate again patient may be heading towards maybe temporary dialysis. Nephrology 11. Metabolic acidosis- Per Nephrology 12. Obstructive sleep [id number] Pulmonary- outpatient sleep study recommeded including PFT- On Discharge will need symptom relief with albuterol inhaler 13. DVT prophylaxis- d/c heparin; acute fall in H/h; SCD History Interval history: f/u hypertension urgency; chest pain Patient seen and examined this morning in no acute distress, reports mild improvement in strength. states that for about 2 weeks Prior to admission she has not been able to ambulate appropriately due to bilateral leg weakness. Today reporting some chest pain shortness of breath with exertion Denies any, nausea, vomiting, diarrhea No fever noted blood pressure controlled . Hospitalist Physical - Physical exam Narrative exam: VITAL SIGNS: Reviewed. GENERAL: The patient appeared well nourished and normally developed otherwise lethargic.. Vital signs as documented. HEAD: No signs of head trauma. EYES: Pupils are equal. Extraocular motions intact. EARS: Hearing grossly intact. MOUTH: Oropharynx is normal. NECK: No adenopathy, no JVD. CHEST: Chest with clear breath sounds bilaterally. No wheezes, rales, or rhonchi. CARDIAC: Regular rate and rhythm. S1 and S2, without murmurs, gallops, or rubs. VASCULAR: 1+ pitting edema bilateral upper extremity and lower extremity Peripheral pulses normal and equal in all extremities. ABDOMEN: Soft, without detectable tenderness. No sign of distention. No rebound or guarding, and no masses palpated. Bowel Sounds normal. MUSCULOSKELETAL: Good range of motion of all major joints. Extremities without clubbing, cyanosis 1+ pitting edema bilateral upper extremity and lower extremity. NEUROLOGIC EXAM: Alert and oriented x 3. No focal sensory or strength deficits. Speech normal. Follows commands. PSYCHIATRIC: Mood normal. SKIN: No rash or lesions. - Constitutional Vitals: Temp Pulse Resp BP Pulse Ox 97.5 F L 61 18 157/72 100 08/03/16 11:30 08/03/16 11:30 08/03/16 11:30 08/03/16 11:30 08/03/16 09:59 General appearance: Present: no acute distress, well-nourished Results - Labs CBC & Chem 7: 07/29/16 06:16 08/03/16 08:33 Labs: Laboratory Last Values WBC 7.3 K/mm3 (4.5-11.0) 07/29/16 06:16 RBC 2.66 M/mm3 (3.65-5.03) L 07/29/16 06:16 Hgb 8.2 gm/dl (10.1-14.3) L 07/29/16 06:16 Hct 24.2 % (30.3-42.9) L 07/29/16 06:16 MCV 91 fl (79-97) 07/29/16 06:16 MCH 31 pg (28-32) 07/29/16 06:16 MCHC 34 % (30-34) 07/29/16 06:16 RDW 14.4 % (13.2-15.2) 07/29/16 06:16 Plt Count 303 K/mm3 (140-440) 07/29/16 06:16 Lymph % (Auto) 28.3 % (13.4-35.0) 07/29/16 06:16 [place] % (Auto) 6.6 % (0.0-7.3) 07/29/16 06:16 Eos % (Auto) 3.5 % (0.0-4.3) 07/29/16 06:16 Baso % (Auto) 1.0 % (0.0-1.8) 07/29/16 06:16 Lymph # 2.1 K/mm3 (1.2-5.4) 07/29/16 06:16 [place] # 0.5 K/mm3 (0.0-0.8) 07/29/16 06:16 Eos # 0.3 K/mm3 (0.0-0.4) 07/29/16 06:16 Baso # 0.1 K/mm3 (0.0-0.1) 07/29/16 06:16 Seg Neutrophils % 60.6 % (40.0-70.0) 07/29/16 06:16 Seg Neutrophils # 4.4 K/mm3 (1.8-7.7) 07/29/16 06:16 PT 13.9 Sec. (12.2-14.9) 07/24/16 14:54 INR 1.08 (0.87-1.13) 07/24/16 14:54 APTT 32.6 Sec. (24.2-36.6) 07/24/16 14:54 Sodium 125 mmol/L (137-145) L 08/03/16 08:33 Potassium 5.5 mmol/L (3.6-5.0) H D 08/03/16 08:33 Chloride 91.8 mmol/L (98-107) L 08/03/16 08:33 Carbon Dioxide 17 mmol/L (22-30) L 08/03/16 08:33 Anion Gap 22 mmol/L 08/03/16 08:33 BUN 36 mg/dL (7-17) H 08/03/16 08:33 Creatinine 4.3 mg/dL (0.7-1.2) H 08/03/16 08:33 Estimated GFR 12 ml/min 08/03/16 08:33 BUN/Creatinine Ratio 8.37 % 08/03/16 08:33 Glucose 152 mg/dL (65-100) H 08/03/16 08:33 POC Glucose 98 (70-105) 08/03/16 07:05 Calcium 8.1 mg/dL (8.4-10.2) L 08/03/16 08:33 Troponin T 0.015 ng/mL (0.00-0.029) 07/24/16 20:39 NT-Pro-B Natriuret Pep 98320 pg/mL (0-900) H 07/24/16 15:02 Renin 0.13 ng/mL/h (0.25-5.82) L 07/26/16 13:50 Aldosterone 3 ng/dL () 07/26/16 13:50 Aldosterone/Renin Dir 23.1 Ratio (0.9-28.9) 07/26/16 13:50 Urine Color Yellow (Yellow) 07/29/16 Unknown Urine Turbidity Slightly-cloudy (Clear) 07/29/16 Unknown Urine pH 6.0 (5.0-7.0) 07/29/16 Unknown Ur Specific [place] 1.009 (1.003-1.030) 07/29/16 Unknown Urine Protein 100 mg/dl mg/dL (Negative) 07/29/16 Unknown Urine Glucose (UA) 150 mg/dL (Negative) 07/29/16 Unknown Urine Ketones Neg mg/dL (Negative) 07/29/16 Unknown Urine Blood Neg (Negative) 07/29/16 Unknown Urine Nitrite Neg (Negative) 07/29/16 Unknown Urine Bilirubin Neg (Negative) 07/29/16 Unknown Urine Urobilinogen < 2.0 mg/dL (<2.0) 07/29/16 Unknown Ur Leukocyte Esterase Tr (Negative) 07/29/16 Unknown Urine WBC (Auto) 6.0 /HPF (0.0-6.0) 07/29/16 Unknown Urine RBC (Auto) 4.0 /HPF (0.0-6.0) 07/29/16 Unknown U Epithel Cells (Auto) 6.0 /HPF (0-13.0) 07/29/16 Unknown Amorphous Crystals Few 07/29/16 Unknown Urine Eosinophils None seen (None Seen) 07/29/16 Unknown Urine Total Volume 1450 08/01/16 17:44 Urine Creatinine 62.0 mg/dL (0.1-20.0) H 08/01/16 17:44 Ur Creatinine 24 Hour 0.9 (0.8-2.8) 08/01/16 17:44 Urine Chloride < 10 mEq/L (110-250) L 08/01/16 17:44 Ur Chloride 24 Hour TNR 08/01/16 17:44 Urine Urea Nitrogen 233 08/01/16 17:44 Ur Urea Nitrogen 24 Hr 3.38 08/01/16 17:44 Urine Calcium < 0.8 mg/dL (6.8-21.3) L 08/01/16 17:44 Ur Calcium 24 Hr TNR 08/01/16 17:44
--- NOTE | 2016-08-03 13:53 | Progress Note ---
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 if refractory to diuretics * 24hr urine crcl--12/ml/min * repeat cxr * continue diuretics * follow up crcl * daily lytes * strict i/os * Continue antiHTN medications - BP improved; continue to follow * Avoid potential nephrotoxins * Dose medications for renal function Subjective Date of service: 08/03/16 Principal diagnosis: Chest pain, Acute on chronic DHF, Accelerated HTN, Acute on CKD Interval history: resting well in bed today Objective - Exam Narrative Exam: General appearance: well-developed, well-nourished EENT: ATNC Respiratory: Present: Clear to Ascultation Cardiology: regular, S1S2 Gastrointestinal: normal, no tenderness, no distended Integumentary: no rash Neurologic: no focal deficit Musculoskeletal: other (no edema) - Vital Signs Vital signs: Vital Signs - 12hr 08/03/16 08/03/16 08/03/16 02:00 06:44 08:00 Temperature 97.5 F L 97.8 F 97.6 F Pulse Rate [ Bilateral Throughout] Pulse Rate [ 67 54 L Left Radial] Pulse Rate [ 56 L Right Radial] Respiratory 18 20 16 Rate Respiratory Rate [Bilateral Throughout] Blood Pressure 150/104 131/58 141/61 [Left Arm] O2 Sat by Pulse 98 Oximetry 08/03/16 08/03/16 08/03/16 09:55 09:56 09:59 Temperature Pulse Rate [ 54 L Bilateral Throughout] Pulse Rate [ Left Radial] Pulse Rate [ Right Radial] Respiratory Rate Respiratory 16 Rate [Bilateral Throughout] Blood Pressure [Left Arm] O2 Sat by Pulse 100 100 Oximetry 08/03/16 08/03/16 10:06 11:30 Temperature 97.5 F L Pulse Rate [ 53 L Bilateral Throughout] Pulse Rate [ 61 Left Radial] Pulse Rate [ Right Radial] Respiratory 18 Rate Respiratory 16 Rate [Bilateral Throughout] Blood Pressure 157/72 [Left Arm] O2 Sat by Pulse Oximetry - Lab 07/29/16 06:16 08/03/16 08:33 Most recent lab results Calcium 8.1 mg/dL (8.4-10.2) L 08/03/16 08:33 Urine Creatinine 62.0 mg/dL (0.1-20.0) H 08/01/16 17:44
[2016-08-03] MEDS: PULMICORT IH SCH ×2 (14:28→22:11)
[2016-08-03] MEDS: BROVANA NEBU IH SCH ×2 (14:28→22:11)
[2016-08-03] MEDS ORDERED: NACL 0.9% 1000 ML 100 ML IV PRN (14:46)
[2016-08-03] MEDS: ULTRAM PO PRN (16:10)
[2016-08-03] MEDS: LASIX IV SCH (17:24)
[2016-08-03] MEDS: HEPARIN SUB-Q SCH ×2 (17:25→22:26)
[2016-08-03] MEDS: XALATAN 0.005% OU SCH (17:39)
[2016-08-03] MEDS: ZOCOR PO SCH (22:24)
[2016-08-03] MEDS: ATIVAN PO SCH (22:25)
[2016-08-04] MEDS: BENADRYL PO SCH ×3 (00:30→23:24)
[2016-08-04] MEDS: LASIX IV SCH (06:17)
[2016-08-04] MEDS: HEPARIN SUB-Q SCH ×3 (06:24→22:32)
[2016-08-04 07:43] LABS: BUN/Creatinine Ratio 9.02; Calcium 8.1 mg/dL (8.4-10.2); Chloride 91.7 mmol/L (98-107); Potassium 4.9 mmol/L (3.6-5.0)
[2016-08-04] MEDS: ALPHAGAN P 0.15% OU SCH (08:00)
--- NOTE | 2016-08-04 09:10 | Progress Note ---
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 * repeat cxr * continue diuretics * follow up crcl * daily lytes * strict i/os * Continue antiHTN medications - BP improved; continue to follow * Avoid potential nephrotoxins * Dose medications for renal function * will need outpatient hd placement Subjective Date of service: 08/04/16 Principal diagnosis: Chest pain, Acute on chronic DHF, Accelerated HTN, Acute on CKD Interval history: resting well in bed today Objective - Exam Narrative Exam: General appearance: well-developed, well-nourished EENT: ATNC Respiratory: Present: Clear to Ascultation Cardiology: regular, S1S2 Gastrointestinal: normal, no tenderness, no distended Integumentary: no rash Neurologic: no focal deficit Musculoskeletal: other (no edema) - Vital Signs Vital signs: Vital Signs - 12hr 08/03/16 08/03/16 08/03/16 21:10 22:00 22:12 Temperature Pulse Rate [ 83 Bilateral Throughout] Pulse Rate [ Left Dorsalis Pedis] Respiratory 22 Rate Respiratory 16 Rate [Bilateral Throughout] Blood Pressure [Left Arm] O2 Sat by Pulse 100 Oximetry 08/03/16 08/03/16 08/04/16 22:21 22:28 00:58 Temperature 97.6 F Pulse Rate [ 84 Bilateral Throughout] Pulse Rate [ 87 Left Dorsalis Pedis] Respiratory 20 20 Rate Respiratory 16 Rate [Bilateral Throughout] Blood Pressure 148/65 [Left Arm] O2 Sat by Pulse 96 Oximetry 08/04/16 08/04/16 05:42 07:30 Temperature 98.6 F 98.1 F Pulse Rate [ Bilateral Throughout] Pulse Rate [ 72 70 Left Dorsalis Pedis] Respiratory 18 20 Rate Respiratory Rate [Bilateral Throughout] Blood Pressure 131/61 146/70 [Left Arm] O2 Sat by Pulse 99 100 Oximetry - Lab 07/29/16 06:16 08/04/16 06:14 Most recent lab results Calcium 8.1 mg/dL (8.4-10.2) L 08/04/16 06:14 Urine Creatinine 62.0 mg/dL (0.1-20.0) H 08/01/16 17:44
[2016-08-04] MEDS: BROVANA NEBU IH SCH ×2 (11:11→19:37)
[2016-08-04] MEDS: PULMICORT IH SCH ×2 (11:11→19:36)
--- NOTE | 2016-08-04 11:30 | Progress Note ---
Assessment and Plan Chest pain added ranexa stress MPI 05/2015: negative for ischemia continue Imdur Accelerated hypertension BP improved Acute on chronic diastolic heart failure EF 50% per echo 10/2014 bumex on hold due to worsening renal indices CAD s/p PCI of LAD and RCA [facility] 2009: patent stents Echo 10/2014: EF 50% Acute on chronic kidney disease Anemia Recommend repeat echo Cardizem shows normal function moderate aortic regurgitation mild to moderate mitral regurgitation patient in view of shortness of breath and not improving renal function is going for a Vas-Cath patient has no cardiac cardiac medications for Vas-Cath for renal failure Subjective Date of service: 08/04/16 Principal diagnosis: Chest pain, Acute on chronic DHF, Accelerated HTN, Acute on CKD Interval history: Patient states had chest pain last night unable to determine the type Objective Vital Signs Temp Pulse Pulse Pulse Pulse Resp Resp 08/04/16 07:30 98.1 F 70 20 08/04/16 05:42 98.6 F 72 18 08/04/16 00:58 97.6 F 87 20 08/03/16 22:28 84 16 08/03/16 22:21 20 08/03/16 22:12 83 16 08/03/16 22:00 08/03/16 21:10 22 08/03/16 20:45 83 08/03/16 20:17 99 F 76 18 08/03/16 17:00 97.9 F 64 14 08/03/16 14:36 56 L 16 08/03/16 14:28 54 L 18 08/03/16 11:30 97.5 F L 61 18 Resp BP Pulse Ox 08/04/16 07:30 146/70 100 08/04/16 05:42 131/61 99 08/04/16 00:58 148/65 96 08/03/16 22:28 08/03/16 22:21 08/03/16 22:12 08/03/16 22:00 100 08/03/16 21:10 08/03/16 20:45 18 08/03/16 20:17 139/63 100 08/03/16 17:00 148/68 08/03/16 14:36 08/03/16 14:28 08/03/16 11:30 157/72 - Physical Examination General: No Apparent Distress HEENT: Positive: EOMI, Normocephaly, Mucus Membranes Moist Neck: Positive: neck supple, trachea midline, JVD/HJR Cardiac: Positive: Reg Rate and Rhythm Lungs: Positive: clear to auscultation Neuro: Positive: Grossly Intact Abdomen: Positive: Soft, Active Bowel Sounds. Negative: Tender Skin: Positive: Clear. Negative: Rash Musculoskeletal: Normal Range of Motion Extremities: Absent: edema - Labs and Meds Comprehensive Metabolic Panel 08/04/16 Range/Units 06:14 Sodium 129 L (137-145) mmol/L Potassium 4.9 (3.6-5.0) mmol/L Chloride 91.7 L (98-107) mmol/L Carbon Dioxide 19 L (22-30) mmol/L BUN 37 H (7-17) mg/dL Creatinine 4.1 H (0.7-1.2) mg/dL Glucose 144 H (65-100) mg/dL Calcium 8.1 L (8.4-10.2) mg/dL - Imaging and Cardiology Echo: report reviewed, other (08/04/2016 normal LV function moderate LVH with moderate aortic regurgitation mild to moderate mitral regurgitation no wall motion mouth and noted ) - Telemetry EKG Rhythm: Sinus Bradycardia (no pauses or V. tach noted)
[2016-08-04] MEDS ORDERED: DDAVP ONE (12:00)
[2016-08-04] MEDS ORDERED: NACL 0.9% ONE (12:00)
--- NOTE | 2016-08-04 12:14 | Progress Note ---
Assessment and Plan Assessment and plan: 1. Accelerated hypertension- uncontrolled; improved with the increase IMDUR, cont clonidine and cont other med; monitor; f/u renal / cardilology for further recommendations 2. CAD with Chest pain-s/p remote stent ; Ranexa added. AMI ruled out based on negative CE; refused stress testing; cont meds; she did have a stress test and 05/2015 which was negative 3. Acute on chronic diastolic heart failure- compensated. cont current manx; continue to hold Bumex secondary to worsening renal indices 4. Acute kidney injury superimposed on CKD due to vasomotor nephropathy- cr continues to increase today; monitor; f/u renal for further recommendations; mild hyperkalemia- kayexalate; repeat;level in the a.m Bumex although nephrotoxic medications held. shows some improvement today. Pending the 24 hr urine study. Plan the patient will start on dialysis. Vascular consult. Once the sepsis has been set up an outpatient dialysis she has been subungual plan for discharge. 5. Anemia of chronic d/o- H/H now stable after acute fall; monitor; occult bloo d 6. DM- cont current insulin regime 7. Fall- Per patient's her legs gave out and she slid down to the floor with no trauma. No loss of consciousness.-d/w nurising and case management need PT OT evaluation and treat 8. Obesity 9. Hyponatremia-worse today and now 125. Will discuss with automatic profile shaper operator. Patient with increased swelling. There are a little diuretic or dialysis of some sort. 10. Hyperkalemia-we'll give a dose of Kayexalate again patient may be heading towards maybe temporary dialysis. Nephrology 11. Metabolic acidosis- Per Nephrology 12. Obstructive sleep [id number] Pulmonary- outpatient sleep study recommeded including PFT- On Discharge will need symptom relief with albuterol inhaler 13. DVT prophylaxis- d/c heparin; acute fall in H/h; SCD History Interval history: f/u hypertension urgency; chest pain Patient seen and examined this morning in no acute distress, reports mild improvement in strength. states that for about 2 weeks Prior to admission she has not been able to ambulate appropriately due to bilateral leg weakness. continues with PT Denies any, nausea, vomiting, diarrhea No fever noted blood pressure controlled . Hospitalist Physical - Physical exam Narrative exam: VITAL SIGNS: Reviewed. GENERAL: The patient appeared well nourished and normally developed otherwise lethargic.. Vital signs as documented. HEAD: No signs of head trauma. EYES: Pupils are equal. Extraocular motions intact. EARS: Hearing grossly intact. MOUTH: Oropharynx is normal. NECK: No adenopathy, no JVD. CHEST: Chest with clear breath sounds bilaterally. No wheezes, rales, or rhonchi. CARDIAC: Regular rate and rhythm. S1 and S2, without murmurs, gallops, or rubs. VASCULAR: 1+ pitting edema bilateral upper extremity and lower extremity Peripheral pulses normal and equal in all extremities. ABDOMEN: Soft, without detectable tenderness. No sign of distention. No rebound or guarding, and no masses palpated. Bowel Sounds normal. MUSCULOSKELETAL: Good range of motion of all major joints. Extremities without clubbing, cyanosis 1+ pitting edema bilateral upper extremity and lower extremity. NEUROLOGIC EXAM: Alert and oriented x 3. No focal sensory or strength deficits. Speech normal. Follows commands. PSYCHIATRIC: Mood normal. SKIN: No rash or lesions. - Constitutional Vitals: Temp Pulse Resp BP Pulse Ox 98.1 F 70 20 146/70 100 08/04/16 07:30 08/04/16 07:30 08/04/16 07:30 08/04/16 07:30 08/04/16 07:30 General appearance: Present: no acute distress, well-nourished Results - Labs CBC & Chem 7: 07/29/16 06:16 08/04/16 06:14 Labs: Laboratory Last Values WBC 7.3 K/mm3 (4.5-11.0) 07/29/16 06:16 RBC 2.66 M/mm3 (3.65-5.03) L 07/29/16 06:16 Hgb 8.2 gm/dl (10.1-14.3) L 07/29/16 06:16 Hct 24.2 % (30.3-42.9) L 07/29/16 06:16 MCV 91 fl (79-97) 07/29/16 06:16 MCH 31 pg (28-32) 07/29/16 06:16 MCHC 34 % (30-34) 07/29/16 06:16 RDW 14.4 % (13.2-15.2) 07/29/16 06:16 Plt Count 303 K/mm3 (140-440) 07/29/16 06:16 Lymph % (Auto) 28.3 % (13.4-35.0) 07/29/16 06:16 [place] % (Auto) 6.6 % (0.0-7.3) 07/29/16 06:16 Eos % (Auto) 3.5 % (0.0-4.3) 07/29/16 06:16 Baso % (Auto) 1.0 % (0.0-1.8) 07/29/16 06:16 Lymph # 2.1 K/mm3 (1.2-5.4) 07/29/16 06:16 [place] # 0.5 K/mm3 (0.0-0.8) 07/29/16 06:16 Eos # 0.3 K/mm3 (0.0-0.4) 07/29/16 06:16 Baso # 0.1 K/mm3 (0.0-0.1) 07/29/16 06:16 Seg Neutrophils % 60.6 % (40.0-70.0) 07/29/16 06:16 Seg Neutrophils # 4.4 K/mm3 (1.8-7.7) 07/29/16 06:16 PT 13.9 Sec. (12.2-14.9) 07/24/16 14:54 INR 1.08 (0.87-1.13) 07/24/16 14:54 APTT 32.6 Sec. (24.2-36.6) 07/24/16 14:54 Sodium 129 mmol/L (137-145) L 08/04/16 06:14 Potassium 4.9 mmol/L (3.6-5.0) 08/04/16 06:14 Chloride 91.7 mmol/L (98-107) L 08/04/16 06:14 Carbon Dioxide 19 mmol/L (22-30) L 08/04/16 06:14 Anion Gap 23 mmol/L 08/04/16 06:14 BUN 37 mg/dL (7-17) H 08/04/16 06:14 Creatinine 4.1 mg/dL (0.7-1.2) H 08/04/16 06:14 Estimated GFR 13 ml/min 08/04/16 06:14 BUN/Creatinine Ratio 9.02 % 08/04/16 06:14 Glucose 144 mg/dL (65-100) H 08/04/16 06:14 POC Glucose 153 (70-105) H 08/03/16 21:21 Calcium 8.1 mg/dL (8.4-10.2) L 08/04/16 06:14 Troponin T 0.015 ng/mL (0.00-0.029) 07/24/16 20:39 NT-Pro-B Natriuret Pep 80208 pg/mL (0-900) H 07/24/16 15:02 Renin 0.13 ng/mL/h (0.25-5.82) L 07/26/16 13:50 Aldosterone 3 ng/dL () 07/26/16 13:50 Aldosterone/Renin Dir 23.1 Ratio (0.9-28.9) 07/26/16 13:50 Urine Color Yellow (Yellow) 07/29/16 Unknown Urine Turbidity Slightly-cloudy (Clear) 07/29/16 Unknown Urine pH 6.0 (5.0-7.0) 07/29/16 Unknown Ur Specific [place] 1.009 (1.003-1.030) 07/29/16 Unknown Urine Protein 100 mg/dl mg/dL (Negative) 07/29/16 Unknown Urine Glucose (UA) 150 mg/dL (Negative) 07/29/16 Unknown Urine Ketones Neg mg/dL (Negative) 07/29/16 Unknown Urine Blood Neg (Negative) 07/29/16 Unknown Urine Nitrite Neg (Negative) 07/29/16 Unknown Urine Bilirubin Neg (Negative) 07/29/16 Unknown Urine Urobilinogen < 2.0 mg/dL (<2.0) 07/29/16 Unknown Ur Leukocyte Esterase Tr (Negative) 07/29/16 Unknown Urine WBC (Auto) 6.0 /HPF (0.0-6.0) 07/29/16 Unknown Urine RBC (Auto) 4.0 /HPF (0.0-6.0) 07/29/16 Unknown U Epithel Cells (Auto) 6.0 /HPF (0-13.0) 07/29/16 Unknown Amorphous Crystals Few 07/29/16 Unknown Urine Eosinophils None seen (None Seen) 07/29/16 Unknown Urine Total Volume 1450 08/01/16 17:44 Urine Creatinine 62.0 mg/dL (0.1-20.0) H 08/01/16 17:44 Ur Creatinine 24 Hour 0.9 (0.8-2.8) 08/01/16 17:44 Urine Chloride < 10 mEq/L (110-250) L 08/01/16 17:44 Ur Chloride 24 Hour TNR 08/01/16 17:44 Urine Urea Nitrogen 233 08/01/16 17:44 Ur Urea Nitrogen 24 Hr 3.38 08/01/16 17:44 Urine Calcium < 0.8 mg/dL (6.8-21.3) L 08/01/16 17:44 Ur Calcium 24 Hr TNR 08/01/16 17:44 Hepatitis C Antibody Non-reactive (NonReactive) 08/03/16 15:23
[2016-08-04] MEDS ORDERED: HEPARIN 10,000 UNITS/10 ML ONE (12:15)
[2016-08-04] MEDS ORDERED: ANCEF/STERILE WATER 2 GM/20 ML 20 ML IV ONE (12:15)
[2016-08-04] MEDS ORDERED: HEPARIN/NS 5000 UNIT/500ML(CATH LAB) 500 ML IR ONE (12:15)
[2016-08-04] MEDS ORDERED: NACL 0.9% 250ML 250 ML ONE (12:41)
--- NOTE | 2016-08-04 12:41 | Progress Note ---
Assessment and Plan - Patient Problems (1) Accelerated hypertension Current Visit: Yes Status: Acute (2) Acute on chronic diastolic heart failure Current Visit: Yes Status: Acute (3) Acute on chronic renal failure Current Visit: Yes Status: Acute (4) CAD (coronary artery disease) Current Visit: Yes Status: Chronic Qualifiers: Coronary Disease-Associated Artery/Lesion type: [place] artery (5) Diabetes mellitus, insulin dependent (IDDM), uncontrolled Current Visit: Yes Status: Chronic Qualifiers: Diabetes mellitus complication detail: with chronic kidney disease (6) Stented coronary artery Current Visit: Yes Status: Chronic (7) Pleural effusion due to congestive heart failure Current Visit: Yes Status: Acute (8) COPD (chronic obstructive pulmonary disease) Current Visit: Yes Status: Acute Subjective Principal diagnosis: Chest pain, Acute on chronic DHF, Accelerated HTN, Acute on CKD Interval history: no new complaints Objective Vital Signs - 12hr 08/04/16 08/04/16 08/04/16 00:58 05:42 07:30 Temperature 97.6 F 98.6 F 98.1 F Pulse Rate [ 87 72 70 Left Dorsalis Pedis] Respiratory 20 18 20 Rate Blood Pressure 148/65 131/61 146/70 [Left Arm] O2 Sat by Pulse 96 99 100 Oximetry Constitutional: no acute distress, alert, other (morbidly obese) Eyes: non-icteric ENT: oropharynx moist Neck: supple Ascultation: Bilateral: clear, diminished breath sounds, rales (at base) Cardiovascular: regular rate and rhythm Gastrointestinal: normoactive bowel sounds, soft, non-tender, non-distended Integumentary: normal Extremities: no cyanosis, no edema Neurologic: normal mental status, non-focal exam, CN II-XII normal Psychiatric: mood appropriate, affect normal CBC and BMP: 07/29/16 06:16 08/04/16 06:14 ABG, PT/INR, D-dimer: PT/INR, D-dimer PT 13.9 Sec. (12.2-14.9) 07/24/16 14:54 INR 1.08 (0.87-1.13) 07/24/16 14:54 Abnormal lab findings: Abnormal Labs 07/25/16 07/25/16 07/25/16 00:57 04:14 04:14 RBC 2.88 L Hgb 8.7 L Hct 25.7 L [place] % (Auto) Sodium Potassium Chloride Carbon Dioxide 19 L BUN 19 H Creatinine 3.1 H Glucose 237 H POC Glucose 279 H Calcium 8.0 L [place] Urine Creatinine Urine Chloride Urine Calcium 07/25/16 07/25/16 07/25/16 11:50 16:32 22:21 RBC Hgb Hct [place] % (Auto) Sodium Potassium Chloride Carbon Dioxide BUN Creatinine Glucose POC Glucose 209 H 218 H 256 H Calcium [place] Urine Creatinine Urine Chloride Urine Calcium 07/26/16 07/26/16 07/26/16 08:36 10:32 11:53 RBC Hgb Hct [place] % (Auto) Sodium 133 L Potassium Chloride 97.3 L Carbon Dioxide 18 L BUN 20 H Creatinine 3.2 H Glucose 274 H POC Glucose 212 H 296 H Calcium 7.9 L [place] Urine Creatinine Urine Chloride Urine Calcium 07/26/16 07/26/16 07/26/16 13:50 17:18 21:44 RBC Hgb Hct [place] % (Auto) Sodium Potassium Chloride Carbon Dioxide BUN Creatinine Glucose POC Glucose 142 H 168 H Calcium [place] 0.13 L Urine Creatinine Urine Chloride Urine Calcium 07/27/16 07/27/16 07/27/16 08:06 08:06 08:24 RBC 2.81 L Hgb 8.7 L Hct 25.3 L [place] % (Auto) 7.8 H Sodium Potassium Chloride Carbon Dioxide 21 L BUN 23 H Creatinine 3.6 H Glucose 248 H POC Glucose 255 H Calcium [place] Urine Creatinine Urine Chloride Urine Calcium 07/27/16 07/28/16 07/28/16 11:41 00:21 00:35 RBC Hgb Hct [place] % (Auto) Sodium Potassium Chloride Carbon Dioxide BUN Creatinine Glucose POC Glucose 191 H < 40 L 227 H Calcium [place] Urine Creatinine Urine Chloride Urine Calcium 07/28/16 07/28/16 07/28/16 06:26 07:53 12:59 RBC Hgb Hct [place] % (Auto) Sodium 136 L Potassium 5.1 H Chloride Carbon Dioxide 19 L BUN 28 H Creatinine 4.2 H Glucose 180 H POC Glucose 216 H 230 H Calcium [place] Urine Creatinine Urine Chloride Urine Calcium 07/28/16 07/29/16 07/29/16 16:18 06:16 06:16 RBC 2.66 L Hgb 8.2 L Hct 24.2 L [place] % (Auto) Sodium Potassium Chloride Carbon Dioxide 18 L BUN 26 H Creatinine 4.1 H Glucose 175 H POC Glucose 108 H Calcium 7.7 L [place] Urine Creatinine Urine Chloride Urine Calcium 07/29/16 07/29/16 07/29/16 07:22 13:05 16:10 RBC Hgb Hct [place] % (Auto) Sodium Potassium Chloride Carbon Dioxide BUN Creatinine Glucose POC Glucose 203 H 233 H 143 H Calcium [place] Urine Creatinine Urine Chloride Urine Calcium 07/29/16 07/30/16 07/30/16 21:26 06:33 12:27 RBC Hgb Hct [place] % (Auto) Sodium Potassium Chloride Carbon Dioxide 21 L BUN 30 H Creatinine 4.3 H Glucose POC Glucose 69 L 152 H Calcium 8.2 L [place] Urine Creatinine Urine Chloride Urine Calcium 07/30/16 07/30/16 07/31/16 17:10 18:50 07:11 RBC Hgb Hct [place] % (Auto) Sodium 133 L D Potassium Chloride Carbon Dioxide 19 L BUN 30 H Creatinine 4.5 H Glucose 57 L POC Glucose 60 L 42 L Calcium 7.8 L [place] Urine Creatinine Urine Chloride Urine Calcium 07/31/16 07/31/16 07/31/16 11:23 15:32 20:36 RBC Hgb Hct [place] % (Auto) Sodium Potassium Chloride Carbon Dioxide BUN Creatinine Glucose POC Glucose 163 H 161 H 169 H Calcium [place] Urine Creatinine Urine Chloride Urine Calcium 08/01/16 08/01/16 08/01/16 05:10 07:29 12:55 RBC Hgb Hct [place] % (Auto) Sodium 130 L Potassium Chloride 93.9 L Carbon Dioxide 19 L BUN 34 H Creatinine 4.3 H Glucose 144 H POC Glucose 196 H 238 H Calcium 7.8 L [place] Urine Creatinine Urine Chloride Urine Calcium 08/01/16 08/01/16 08/01/16 15:58 17:44 20:57 RBC Hgb Hct [place] % (Auto) Sodium Potassium Chloride Carbon Dioxide BUN Creatinine Glucose POC Glucose 124 H 48 L Calcium [place] Urine Creatinine 62.0 H Urine Chloride < 10 L Urine Calcium < 0.8 L 08/01/16 08/01/16 08/02/16 21:34 22:10 04:31 RBC Hgb Hct [place] % (Auto) Sodium Potassium Chloride Carbon Dioxide BUN Creatinine Glucose POC Glucose 60 L 68 L < 40 L Calcium [place] Urine Creatinine Urine Chloride Urine Calcium 08/02/16 08/02/16 08/02/16 05:03 06:32 07:58 RBC Hgb Hct [place] % (Auto) Sodium 128 L Potassium Chloride 92.5 L Carbon Dioxide 20 L BUN 37 H Creatinine 4.6 H Glucose POC Glucose 186 H 55 L Calcium 8.0 L [place] Urine Creatinine Urine Chloride Urine Calcium 08/02/16 08/02/16 08/02/16 09:11 11:24 16:32 RBC Hgb Hct [place] % (Auto) Sodium Potassium Chloride Carbon Dioxide BUN Creatinine Glucose POC Glucose 164 H 185 H 238 H Calcium [place] Urine Creatinine Urine Chloride Urine Calcium 08/02/16 08/03/16 08/03/16 22:39 03:14 03:35 RBC Hgb Hct [place] % (Auto) Sodium Potassium Chloride Carbon Dioxide BUN Creatinine Glucose POC Glucose 63 L < 40 L 188 H Calcium [place] Urine Creatinine Urine Chloride Urine Calcium 08/03/16 08/03/16 08/03/16 08:33 12:32 15:49 RBC Hgb Hct [place] % (Auto) Sodium 125 L Potassium 5.5 H D Chloride 91.8 L Carbon Dioxide 17 L BUN 36 H Creatinine 4.3 H Glucose 152 H POC Glucose 215 H 241 H Calcium 8.1 L [place] Urine Creatinine Urine Chloride Urine Calcium 08/03/16 08/04/16 21:21 06:14 RBC Hgb Hct [place] % (Auto) Sodium 129 L Potassium Chloride 91.7 L Carbon Dioxide 19 L BUN 37 H Creatinine 4.1 H Glucose 144 H POC Glucose 153 H Calcium 8.1 L Renin Urine Creatinine Urine Chloride Urine Calcium
[2016-08-04] MEDS: XYLOCAINE 1%/ EPI 1:100,000 INFILTRATI ONE ×2 (12:50→13:01)
[2016-08-04] MEDS: VERSED ONE ×3 (12:50→13:04)
[2016-08-04] MEDS: SUBLIMAZE ONE ×3 (12:50→13:03)
[2016-08-04] MEDS ORDERED: DDAVP 20 MCG in NACL 0.9% 50 ML IV STA (13:22)
--- NOTE | 2016-08-04 13:59 | Event Note ---
Date: 08/04/16 Request for permcath for HD access. Discussed shelter access with patient. Bring down for permcath placement today.
--- NOTE | 2016-08-04 14:01 | Operative Report ---
Operative Report Operative Report: EXAM: 1. Ultrasound-guided puncture of the right internal jugular vein 2. Fluoroscopic-guided placement of a right internal jugular tunneled cuffed hemodialysis catheter. DATE: 08/04/16 INDICATION: And stage renal disease on aspirin and Plavix for cardiac disease with request for PermCath MEDICATIONS: Please see nursing report for full details. DEVICES: 23 cm tip to cuff 15 Fr dual lumen hemodialysis catheter CONSTRUCTION AND MAINTENANCE INSPECTOR: MIKE REED MD CONTRAST: None PROCEDURE: The risks, benefits, and alternatives were discussed and informed consent was obtained. The patient was transported to the angiography suite in satisfactory/ stable condition and was transported onto the angiography table. The patient's right internal jugular vein was assessed with ultrasound and determined to be patent prior to procedure. The patient was prepped and draped in a sterile fashion. The puncture site was anesthetized. Under sonographic guidance, the right internal jugular vein was punctured with a 21-gauge micropuncture needle and a 0.018 inch wire was advanced into the inferior vena cava. The micropuncture needle was exchanged for a transitional dilator and the wire was retracted into the right atrium to vignesh intravascular distance. The wire and inner dilator were removed. 0.035 inch wire was advanced through the transitional dilator into the inferior vena cava. A suitable exit site was identified on the patient's chest inferior and lateral to the venotomy. The site was anesthetized with local anesthetic and the track was anesthetized. Dermatotomy was made. The PermCath was attached to the tunneling device and tunneled between the dermatotomy to the venotomy. Over the 0.035 inch wire, serial dilatation was performed with ultimate placement of a peel-away sheath. The catheter was advanced through the peel- away sheath after the wire was removed and positioned centrally under fluoroscopic guidance. The peel-away sheath was removed. There was a low amount of oozing from the venotomy. 10 minutes of pressure did not resolve the issue. 20 g of DDAVP was administered with an additional 10 minutes of pressure which resolved oozing. 4-0 Vicryl suture was used to close the venotomy and Dermabond was then applied. 2-0 Ethilon suture was used to secure the catheter at the dermatotomy. The catheter was charged with heparin 1000 units/mL. Pressure dressing was then applied to the right neck. The patient was transferred from the angiography suite back to the floor in stable condition. FINDINGS: 1. Excellent flow was obtained through the dialysis catheter with 20 mL syringes. 2. The catheter tip is in the right atrium. IMPRESSION: 1. Successful ultrasound and fluoroscopically guided placement of a right internal jugular tunneled cuffed hemodialysis catheter.
[2016-08-04] MEDS: ULTRAM PO PRN (16:44)
[2016-08-04] MEDS: PROCRIT IV PRN (20:15)
[2016-08-04] MEDS: LONITEN PO SCH (22:08)
[2016-08-04] MEDS: CATAPRES PO SCH (22:08)
[2016-08-04] MEDS: ATIVAN PO SCH (22:10)
[2016-08-04] MEDS: NORMODYNE PO SCH (22:10)
[2016-08-04] MEDS: TYLENOL PO PRN (22:24)
[2016-08-04] MEDS: ZOCOR PO SCH (22:25)
[2016-08-04] MEDS: RANEXA ER PO SCH (22:25)
[2016-08-05] MEDS: LASIX IV SCH ×2 (05:23→18:04)
[2016-08-05] MEDS: ULTRAM PO PRN ×2 (05:23→10:54)
[2016-08-05] MEDS: HEPARIN SUB-Q SCH ×3 (05:25→22:24)
[2016-08-05] MEDS: BROVANA NEBU IH SCH ×2 (07:46→20:05)
[2016-08-05] MEDS: PULMICORT IH SCH ×2 (07:46→20:05)
[2016-08-05 08:42] LABS: BUN/Creatinine Ratio 7.71; Calcium 7.9 mg/dL (8.4-10.2); Chloride 95.2 mmol/L (98-107)
--- NOTE | 2016-08-05 08:55 | Echocardiography Report ---
Transthoracic Echocardiogram Indication: SOB BP: 131/61 Conclusions *Global left ventricular systolic function is normal. *The estimated ejection fraction is 55-60%. *Mild aortic leaflet calcification is visualized. *There is mild to moderate aortic regurgitation. *Mild mitral leaflet calcification is visualized. *There is moderate to severe mitral regurgitation. *There is moderate to severe tricuspid regurgitation. *There is evidence of moderate pulmonary hypertension. *There is trace pulmonic regurgitation. Findings Left Ventricle: The left ventricular chamber size is normal. Mild concentric left ventricular hypertrophy is observed. Global left ventricular wall motion and contractility are within normal limits. Global left ventricular systolic function is normal. The estimated ejection fraction is 55-60%. Normal left ventricular diastolic filling is observed. Left Atrium: The left atrium is normal in size with no visual thrombus identified. Right Ventricle: The right ventricular cavity size is normal. The right ventricular global systolic function is normal. Right Atrium: The right atrium appears normal. The interatrial septum appears normal. Aortic Valve: The aortic valve leaflets are mildly thickened. Mild aortic leaflet calcification is visualized. There is mild to moderate aortic regurgitation. The mean gradient of the aortic valve is 13 mmHg. Mitral Valve: The mitral valve leaflets are mildly thickened. Mild mitral leaflet calcification is visualized. There is moderate to severe mitral regurgitation. There is no evidence of mitral stenosis. Tricuspid Valve: The tricuspid valve leaflets are normal. There is moderate to severe tricuspid regurgitation. The right ventricular systolic pressure is calculated at 51 mmHg. There is evidence of moderate pulmonary hypertension. There is no tricuspid stenosis. Pulmonic Valve: The pulmonic valve appears normal. There is trace pulmonic regurgitation. There is no pulmonic stenosis. Pericardium: There is no pericardial effusion. Aorta: There is no dilatation of the ascending aorta. There is no dilatation of the aortic root. Venous: The inferior vena cava appears normal in size. There is no change in the dimension of the inferior vena cava with respiration consistent with markedly increased right atrial pressure. Measurements Chambers MM Name Value Normal Range Ao root diameter (MM) 2.5 cm (2 - 3.7) LA dimension (AP) MM 3.8 cm (1.9 - 4) LA:Ao ratio (MM) 1.52 ratio - AV cusp separation (MM) 1.3 cm (1.5 - 2.6) Chambers 2D Name Value Normal Range RVIDd (AP) 2D 2.71 cm (0.9 - 2.6) IVSd (2D) 1.25 cm (0.6 - 1.1) LVPWd (2D) 1.27 cm (0.6 - 1.1) IVS:LVPW ratio (2D) 0.98 ratio - LVIDd (2D) 4.72 cm (3.7 - 5.6) LVIDs (2D) 3.02 cm (2 - 3.8) LV FS (Teichholz) (2D) 36 % - LV FS (cube) (2D) 36 % - EF Teichholz (2D) 65.4 % - LA dimension (AP) 2D 3.4 cm (1.9 - 4) Volumes/Mass Name Value Normal Range LA ESV SP 4CH (MOD) 41 ml - LA ESV SP 2CH (MOD) 34 ml - LA ESV BP (MOD) 38 ml - LA ESV BP (MOD) index 22.2 ml/m2 - LV EDV SP 4CH (MOD) 40 ml - LV ESV SP 4CH (MOD) 14 ml - EF SP 4CH (MOD) 65 % - LV EDV SP 2CH (MOD) 62 ml - LV ESV SP 2CH (MOD) 19 ml - EF SP 2CH (MOD) 69 % - LV EDV BP 50 ml - Diastolic/Systolic Function Name Value Normal Range MV E-wave Vmax 1.19 m/sec - MV deceleration time 225 msec - MV A-wave Vmax 1.06 m/sec - MV E:A ratio 1.1 ratio - LV septal e' Vmax 0.07 m/sec - LV lateral e' Vmax 0.06 m/sec - LV E:e' septal ratio 17.5 ratio - LV E:e' lateral ratio 21.1 ratio - Aortic Valve Name Value Normal Range AV VTI 46 cm - AV mean gradient 13 mmHg - LVOT diameter 2 cm - LVOT VTI 32.5 cm - LVOT mean gradient 6 mmHg - SV LVOT 102 ml - SUSIE (continuity VTI) 2.22 cm2 - Mitral Valve Name Value Normal Range MV PHT 56 msec - MR Vmax 5.76 m/sec - MR VTI 177 cm - MVA (PHT) 3.93 cm2 - Tricuspid Valve Name Value Normal Range TR Vmax 3.29 m/sec - TR peak gradient 43 mmHg - RAP 8 mmHg - RVSP 51 mmHg - Pulmonic Valve/Qp:Qs Name Value Normal Range PV Vmax 1.49 m/sec - PV peak gradient 9 mmHg - OR end-diastolic Vmax 1.34 m/sec - PV acceleration time 127 msec -
[2016-08-05] MEDS ORDERED: NACL 0.9% 1000 ML 100 ML IV PRN (10:33)
--- NOTE | 2016-08-05 10:33 | Progress Note ---
Assessment and Plan Impression: * End-stage renal disease * Accelerated hypertension --Renal artery doppler negative for MARYURI * Chest pain * Anemia likely secondary to CKD * CAD * Acute on Chronic DHF Plan: * Uneventful hemodialysis yesterday. * Patient clinically still volume overloaded. Shall dialyze her again today * Continue diuretics * Adjust diet and meds for ESRD state * Continue antiHTN medications - BP improved; continue to follow * Avoid potential nephrotoxins * Dose medications for renal function * will need outpatient hd placement. Shall consult case management * She will also need a permanent access. Discussed with vascular surgery Subjective Date of service: 08/05/16 Principal diagnosis: Chest pain, Acute on chronic DHF, Accelerated HTN, Acute on CKD Interval history: Patient had right IJ PermCath placed yesterday. Uneventful hemodialysis thereafter. Her shortness of breath is improving Objective - Vital Signs Vital signs: Vital Signs - 12hr 08/05/16 08/05/16 08/05/16 01:00 04:25 05:00 Temperature 99.5 F 98.9 F Pulse Rate 77 Pulse Rate [ Anterior Bilateral Throughout] Pulse Rate [ 85 77 Left Radial] Respiratory 20 18 Rate Respiratory Rate [Anterior Bilateral Throughout] Blood Pressure 124/64 102/54 [Left Arm] O2 Sat by Pulse 96 96 Oximetry 08/05/16 08/05/16 07:47 08:25 Temperature 98.9 F Pulse Rate Pulse Rate [ 78 Anterior Bilateral Throughout] Pulse Rate [ 86 Left Radial] Respiratory 20 Rate Respiratory 18 Rate [Anterior Bilateral Throughout] Blood Pressure 174/69 [Left Arm] O2 Sat by Pulse 97 Oximetry - General Appearance General appearance: well-developed, well-nourished, appears stated age EENT: PERRL, mucous membranes moist Neck: no JVD, no thyromegaly, no carotid bruit, supple, other (right IJ PermCath in place) Respiratory: Present: Decreased Breath Sounds (at the bases) Cardiology: regular, normal heart rate, S1S2, no murmurs Gastrointestinal: normal, normoactive bowel sounds Integumentary: no rash, other (1+ edema) - Lab 07/29/16 06:16 08/05/16 07:44 Most recent lab results Calcium 7.9 mg/dL (8.4-10.2) L 08/05/16 07:44 Urine Creatinine 62.0 mg/dL (0.1-20.0) H 08/01/16 17:44
[2016-08-05] MEDS: BENADRYL PO SCH ×2 (10:43→18:23)
[2016-08-05] MEDS: ALPHAGAN P 0.15% OU SCH ×3 (10:44→22:22)
[2016-08-05] MEDS: CATAPRES PO SCH ×3 (10:47→22:24)
[2016-08-05] MEDS: HALFPRIN EC PO SCH (10:48)
[2016-08-05] MEDS: IMDUR PO SCH (10:48)
[2016-08-05] MEDS: LONITEN PO SCH ×2 (10:49→22:23)
[2016-08-05] MEDS: NORVASC PO SCH (10:49)
[2016-08-05] MEDS: NORMODYNE PO SCH ×3 (10:49→22:23)
[2016-08-05] MEDS: PLAVIX PO SCH (10:49)
[2016-08-05] MEDS: RANEXA ER PO SCH ×2 (10:50→22:23)
[2016-08-05] MEDS: PROTONIX PO SCH (10:50)
--- NOTE | 2016-08-05 11:54 | Progress Note ---
Assessment and Plan Stable cardiac status. Continue current management. - Patient Problems (1) Accelerated hypertension Current Visit: Yes Status: Acute (2) Acute on chronic diastolic heart failure Current Visit: Yes Status: Acute (3) Acute on chronic renal failure Current Visit: Yes Status: Acute (4) Chest pain Current Visit: Yes Status: Resolved Qualifiers: Chest pain type: unspecified Qualified Code(s): R07.9 - Chest pain, unspecified (5) CAD (coronary artery disease) Current Visit: Yes Status: Chronic Qualifiers: Coronary Disease-Associated Artery/Lesion type: [place] artery (6) Stented coronary artery Current Visit: Yes Status: Chronic (7) Diabetes Current Visit: Yes Status: Chronic (8) Anemia Current Visit: Yes Status: Chronic Qualifiers: Other causes of anemia: chronic disease, kidney Subjective Date of service: 08/05/16 Principal diagnosis: Chest pain, Acute on chronic DHF, Accelerated HTN, Acute on CKD Interval history: The patient is resting in bed. She complains of left sided flank pain. No chest pain or shortness of breath. Sinus rhythm on the monitor. Objective Last Vital Signs Temp 98.9 F 08/05/16 08:25 Pulse 86 08/05/16 08:25 Resp 20 08/05/16 08:25 BP 174/69 08/05/16 08:25 Pulse Ox 97 08/05/16 07:47 - Physical Examination General: No Apparent Distress HEENT: Positive: EOMI, Normocephaly, Mucus Membranes Moist Neck: Positive: neck supple, trachea midline, JVD/HJR Cardiac: Positive: Reg Rate and Rhythm, S1/S2 Lungs: Positive: clear to auscultation Neuro: Positive: Grossly Intact Abdomen: Positive: Soft, Active Bowel Sounds. Negative: Tender Skin: Positive: Clear. Negative: Rash Musculoskeletal: Normal Range of Motion Extremities: Absent: edema - Labs and Meds Comprehensive Metabolic Panel 08/05/16 Range/Units 07:44 Sodium 134 L (137-145) mmol/L Potassium 4.0 (3.6-5.0) mmol/L Chloride 95.2 L (98-107) mmol/L Carbon Dioxide 23 (22-30) mmol/L BUN 27 H (7-17) mg/dL Creatinine 3.5 H (0.7-1.2) mg/dL Glucose 163 H (65-100) mg/dL Calcium 7.9 L (8.4-10.2) mg/dL - Imaging and Cardiology Echo: report reviewed, other (08/04/2016 normal LV function moderate LVH with moderate aortic regurgitation mild to moderate mitral regurgitation no wall motion mouth and noted ) - Telemetry EKG Rhythm: Sinus Rhythm
--- NOTE | 2016-08-05 12:06 | Progress Note ---
Assessment and Plan 70 y/o female with acute renal failure, now requiring HD and acute respiratory failure secondary to volume overload from renal failure. 1. Agree with more HD to help with hypoxemia 2. Wean supplemental O2 for sats >88% Subjective Date of service: 08/05/16 Principal diagnosis: Chest pain, Acute on chronic DHF, Accelerated HTN, Acute on CKD Interval history: No acute events. Tolerated HD yesterday. Going for HD again today. Remains on face mask but breathing does not appear labored. Objective Vital Signs - 12hr 08/05/16 08/05/16 08/05/16 01:00 04:25 05:00 Temperature 99.5 F 98.9 F Pulse Rate 77 Pulse Rate [ Anterior Bilateral Throughout] Pulse Rate [ 85 77 Left Radial] Respiratory 20 18 Rate Respiratory Rate [Anterior Bilateral Throughout] Blood Pressure 124/64 102/54 [Left Arm] O2 Sat by Pulse 96 96 Oximetry 08/05/16 08/05/16 07:47 08:25 Temperature 98.9 F Pulse Rate Pulse Rate [ 78 Anterior Bilateral Throughout] Pulse Rate [ 86 Left Radial] Respiratory 20 Rate Respiratory 18 Rate [Anterior Bilateral Throughout] Blood Pressure 174/69 [Left Arm] O2 Sat by Pulse 97 Oximetry Constitutional: no acute distress, alert Eyes: non-icteric ENT: oropharynx moist Neck: supple Ascultation: Bilateral: rales (at base) Cardiovascular: regular rate and rhythm Gastrointestinal: normoactive bowel sounds, soft, non-tender, non-distended Integumentary: normal Extremities: no cyanosis, no edema Neurologic: normal mental status, non-focal exam, CN II-XII normal Psychiatric: mood appropriate, affect normal CBC and BMP: 07/29/16 06:16 08/05/16 07:44 ABG, PT/INR, D-dimer: PT/INR, D-dimer PT 13.9 Sec. (12.2-14.9) 07/24/16 14:54 INR 1.08 (0.87-1.13) 07/24/16 14:54 Abnormal lab findings: Abnormal Labs 07/25/16 07/25/16 07/25/16 00:57 04:14 04:14 RBC 2.88 L Hgb 8.7 L Hct 25.7 L Cidra % (Auto) Sodium Potassium Chloride Carbon Dioxide 19 L BUN 19 H Creatinine 3.1 H Glucose 237 H POC Glucose 279 H Calcium 8.0 L Renin Urine Creatinine Urine Chloride Urine Calcium 07/25/16 07/25/16 07/25/16 11:50 16:32 22:21 RBC Hgb Hct Cidra % (Auto) Sodium Potassium Chloride Carbon Dioxide BUN Creatinine Glucose POC Glucose 209 H 218 H 256 H Calcium Renin Urine Creatinine Urine Chloride Urine Calcium 07/26/16 07/26/16 07/26/16 08:36 10:32 11:53 RBC Hgb Hct Cidra % (Auto) Sodium 133 L Potassium Chloride 97.3 L Carbon Dioxide 18 L BUN 20 H Creatinine 3.2 H Glucose 274 H POC Glucose 212 H 296 H Calcium 7.9 L Renin Urine Creatinine Urine Chloride Urine Calcium 07/26/16 07/26/16 07/26/16 13:50 17:18 21:44 RBC Hgb Hct C[place] % (Auto) Sodium Potassium Chloride Carbon Dioxide BUN Creatinine Glucose POC Glucose 142 H 168 H Calcium Renin 0.13 L Urine Creatinine Urine Chloride Urine Calcium 07/27/16 07/27/16 07/27/16 08:06 08:06 08:24 RBC 2.81 L Hgb 8.7 L Hct 25.3 L Cidra % (Auto) 7.8 H Sodium Potassium Chloride Carbon Dioxide 21 L BUN 23 H Creatinine 3.6 H Glucose 248 H POC Glucose 255 H Calcium Renin Urine Creatinine Urine Chloride Urine Calcium 07/27/16 07/28/16 07/28/16 11:41 00:21 00:35 RBC Hgb Hct Cid[place] % (Auto) Sodium Potassium Chloride Carbon Dioxide BUN Creatinine Glucose POC Glucose 191 H < 40 L 227 H Calcium Renin Urine Creatinine Urine Chloride Urine Calcium 07/28/16 07/28/16 07/28/16 06:26 07:53 12:59 RBC Hgb Hct Cidra % (Auto) Sodium 136 L Potassium 5.1 H Chloride Carbon Dioxide 19 L BUN 28 H Creatinine 4.2 H Glucose 180 H POC Glucose 216 H 230 H Calcium Renin Urine Creatinine Urine Chloride Urine Calcium 07/28/16 07/29/16 07/29/16 16:18 06:16 06:16 RBC 2.66 L Hgb 8.2 L Hct 24.2 L Cid[place] % (Auto) Sodium Potassium Chloride Carbon Dioxide 18 L BUN 26 H Creatinine 4.1 H Glucose 175 H POC Glucose 108 H Calcium 7.7 L Renin Urine Creatinine Urine Chloride Urine Calcium 07/29/16 07/29/16 07/29/16 07:22 13:05 16:10 RBC Hgb Hct Cid[place] % (Auto) Sodium Potassium Chloride Carbon Dioxide BUN Creatinine Glucose POC Glucose 203 H 233 H 143 H Calcium Renin Urine Creatinine Urine Chloride Urine Calcium 07/29/16 07/30/16 07/30/16 21:26 06:33 12:27 RBC Hgb Hct C[place] % (Auto) Sodium Potassium Chloride Carbon Dioxide 21 L BUN 30 H Creatinine 4.3 H Glucose POC Glucose 69 L 152 H Calcium 8.2 L Renin Urine Creatinine Urine Chloride Urine Calcium 07/30/16 07/30/16 07/31/16 17:10 18:50 07:11 RBC Hgb Hct Cid[place] % (Auto) Sodium 133 L D Potassium Chloride Carbon Dioxide 19 L BUN 30 H Creatinine 4.5 H Glucose 57 L POC Glucose 60 L 42 L Calcium 7.8 L Renin Urine Creatinine Urine Chloride Urine Calcium 07/31/16 07/31/16 07/31/16 11:23 15:32 20:36 RBC Hgb Hct C[place] % (Auto) Sodium Potassium Chloride Carbon Dioxide BUN Creatinine Glucose POC Glucose 163 H 161 H 169 H Calcium Renin Urine Creatinine Urine Chloride Urine Calcium 08/01/16 08/01/16 08/01/16 05:10 07:29 12:55 RBC Hgb Hct C[place] % (Auto) Sodium 130 L Potassium Chloride 93.9 L Carbon Dioxide 19 L BUN 34 H Creatinine 4.3 H Glucose 144 H POC Glucose 196 H 238 H Calcium 7.8 L Renin Urine Creatinine Urine Chloride Urine Calcium 08/01/16 08/01/16 08/01/16 15:58 17:44 20:57 RBC Hgb Hct [place] % (Auto) Sodium Potassium Chloride Carbon Dioxide BUN Creatinine Glucose POC Glucose 124 H 48 L Calcium Renin Urine Creatinine 62.0 H Urine Chloride < 10 L Urine Calcium < 0.8 L 08/01/16 08/01/16 08/02/16 21:34 22:10 04:31 RBC Hgb Hct C[place] % (Auto) Sodium Potassium Chloride Carbon Dioxide BUN Creatinine Glucose POC Glucose 60 L 68 L < 40 L Calcium Renin Urine Creatinine Urine Chloride Urine Calcium 08/02/16 08/02/16 08/02/16 05:03 06:32 07:58 RBC Hgb Hct [place] % (Auto) Sodium 128 L Potassium Chloride 92.5 L Carbon Dioxide 20 L BUN 37 H Creatinine 4.6 H Glucose POC Glucose 186 H 55 L Calcium 8.0 L Renin Urine Creatinine Urine Chloride Urine Calcium 08/02/16 08/02/16 08/02/16 09:11 11:24 16:32 RBC Hgb Hct [place] % (Auto) Sodium Potassium Chloride Carbon Dioxide BUN Creatinine Glucose POC Glucose 164 H 185 H 238 H Calcium Renin Urine Creatinine Urine Chloride Urine Calcium 08/02/16 08/03/16 08/03/16 22:39 03:14 03:35 RBC Hgb Hct [place] % (Auto) Sodium Potassium Chloride Carbon Dioxide BUN Creatinine Glucose POC Glucose 63 L < 40 L 188 H Calcium Renin Urine Creatinine Urine Chloride Urine Calcium 08/03/16 08/03/16 08/03/16 08:33 12:32 15:49 RBC Hgb Hct [place] % (Auto) Sodium 125 L Potassium 5.5 H D Chloride 91.8 L Carbon Dioxide 17 L BUN 36 H Creatinine 4.3 H Glucose 152 H POC Glucose 215 H 241 H Calcium 8.1 L Renin Urine Creatinine Urine Chloride Urine Calcium 08/03/16 08/04/16 08/04/16 21:21 06:14 07:22 RBC Hgb Hct [place] % (Auto) Sodium 129 L Potassium Chloride 91.7 L Carbon Dioxide 19 L BUN 37 H Creatinine 4.1 H Glucose 144 H POC Glucose 153 H 147 H Calcium 8.1 L Renin Urine Creatinine Urine Chloride Urine Calcium 08/04/16 08/04/16 08/05/16 15:36 21:18 07:44 RBC Hgb Hct [place] % (Auto) Sodium 134 L Potassium Chloride 95.2 L Carbon Dioxide BUN 27 H Creatinine 3.5 H Glucose 163 H POC Glucose 175 H 190 H Calcium 7.9 L Renin Urine Creatinine Urine Chloride Urine Calcium 08/05/16 08:28 RBC Hgb Hct [place] % (Auto) Sodium Potassium Chloride Carbon Dioxide BUN Creatinine Glucose POC Glucose 179 H Calcium Renin Urine Creatinine Urine Chloride Urine Calcium
[2016-08-05] MEDS: HEPARIN IV PRN (15:47)
[2016-08-05] MEDS: PROCRIT IV PRN (15:48)
--- NOTE | 2016-08-05 16:30 | Progress Note ---
Assessment and Plan Assessment and plan: 1. Accelerated hypertension- uncontrolled; improved with the increase IMDUR, cont clonidine and cont other med; monitor; f/u renal / cardilology for further recommendations 2. CAD with Chest pain-s/p remote stent ; Ranexa added. AMI ruled out based on negative CE; refused stress testing; cont meds; she did have a stress test and 05/2015 which was negative 3. Acute on chronic diastolic heart failure- compensated. cont current manx; continue to hold Bumex secondary to worsening renal indices 4. Acute kidney injury superimposed on CKD due to vasomotor nephropathy- started on dialysis 5. Anemia of chronic d/o- H/H now stable after acute fall; monitor; occult bloo d 6. DM- cont current insulin regime 7. Fall- Per patient's her legs gave out and she slid down to the floor with no trauma. No loss of consciousness.-d/w nurising and case management need PT OT evaluation and treat 8. Obesity 9. Hyponatremia-worse today and now 125. Will discuss with interlibrary loan services librarian. Patient with increased swelling. There are a little diuretic or dialysis of some sort. 10. Hyperkalemia-we'll give a dose of Kayexalate again patient may be heading towards maybe temporary dialysis. Nephrology 11. Metabolic acidosis- Per Nephrology 12. Obstructive sleep [id number] Pulmonary- outpatient sleep study recommeded including PFT- On Discharge will need symptom relief with albuterol inhaler 13. DVT prophylaxis- d/c heparin; acute fall in H/h; SCD History Interval history: f/u hypertension urgency; chest pain Patient seen and examined this morning in no acute distress, started on dialysis yesterday, tolerating procedure well. Ambulate appropriately due to bilateral leg weakness. continues with PT Denies any, nausea, vomiting, diarrhea No fever noted blood pressure controlled . Hospitalist Physical - Physical exam Narrative exam: VITAL SIGNS: Reviewed. GENERAL: The patient appeared well nourished and normally developed otherwise lethargic.. Vital signs as documented. HEAD: No signs of head trauma. EYES: Pupils are equal. Extraocular motions intact. EARS: Hearing grossly intact. MOUTH: Oropharynx is normal. NECK: No adenopathy, no JVD. CHEST: Chest with clear breath sounds bilaterally. No wheezes, rales, or rhonchi. CARDIAC: Regular rate and rhythm. S1 and S2, without murmurs, gallops, or rubs. VASCULAR: 1+ pitting edema bilateral upper extremity and lower extremity Peripheral pulses normal and equal in all extremities. ABDOMEN: Soft, without detectable tenderness. No sign of distention. No rebound or guarding, and no masses palpated. Bowel Sounds normal. MUSCULOSKELETAL: Good range of motion of all major joints. Extremities without clubbing, cyanosis 1+ pitting edema bilateral upper extremity and lower extremity. NEUROLOGIC EXAM: Alert and oriented x 3. No focal sensory or strength deficits. Speech normal. Follows commands. PSYCHIATRIC: Mood normal. SKIN: No rash or lesions. - Constitutional Vitals: Temp Pulse Resp BP Pulse Ox 98.4 F 79 20 161/63 97 08/05/16 12:20 08/05/16 14:45 08/05/16 12:20 08/05/16 14:45 08/05/16 07:47 General appearance: Present: no acute distress, well-nourished Results - Labs CBC & Chem 7: 07/29/16 06:16 08/05/16 07:44 Labs: Laboratory Last Values WBC 7.3 K/mm3 (4.5-11.0) 07/29/16 06:16 RBC 2.66 M/mm3 (3.65-5.03) L 07/29/16 06:16 Hgb 8.2 gm/dl (10.1-14.3) L 07/29/16 06:16 Hct 24.2 % (30.3-42.9) L 07/29/16 06:16 MCV 91 fl (79-97) 07/29/16 06:16 MCH 31 pg (28-32) 07/29/16 06:16 MCHC 34 % (30-34) 07/29/16 06:16 RDW 14.4 % (13.2-15.2) 07/29/16 06:16 Plt Count 303 K/mm3 (140-440) 07/29/16 06:16 Lymph % (Auto) 28.3 % (13.4-35.0) 07/29/16 06:16 Armstrong % (Auto) 6.6 % (0.0-7.3) 07/29/16 06:16 Eos % (Auto) 3.5 % (0.0-4.3) 07/29/16 06:16 Baso % (Auto) 1.0 % (0.0-1.8) 07/29/16 06:16 Lymph # 2.1 K/mm3 (1.2-5.4) 07/29/16 06:16 Armstrong # 0.5 K/mm3 (0.0-0.8) 07/29/16 06:16 Eos # 0.3 K/mm3 (0.0-0.4) 07/29/16 06:16 Baso # 0.1 K/mm3 (0.0-0.1) 07/29/16 06:16 Seg Neutrophils % 60.6 % (40.0-70.0) 07/29/16 06:16 Seg Neutrophils # 4.4 K/mm3 (1.8-7.7) 07/29/16 06:16 PT 13.9 Sec. (12.2-14.9) 07/24/16 14:54 INR 1.08 (0.87-1.13) 07/24/16 14:54 APTT 32.6 Sec. (24.2-36.6) 07/24/16 14:54 Sodium 134 mmol/L (137-145) L 08/05/16 07:44 Potassium 4.0 mmol/L (3.6-5.0) 08/05/16 07:44 Chloride 95.2 mmol/L (98-107) L 08/05/16 07:44 Carbon Dioxide 23 mmol/L (22-30) 08/05/16 07:44 Anion Gap 20 mmol/L 08/05/16 07:44 BUN 27 mg/dL (7-17) H 08/05/16 07:44 Creatinine 3.5 mg/dL (0.7-1.2) H 08/05/16 07:44 Estimated GFR 16 ml/min 08/05/16 07:44 BUN/Creatinine Ratio 7.71 % 08/05/16 07:44 Glucose 163 mg/dL (65-100) H 08/05/16 07:44 POC Glucose 179 (70-105) H 08/05/16 08:28 Calcium 7.9 mg/dL (8.4-10.2) L 08/05/16 07:44 Troponin T 0.015 ng/mL (0.00-0.029) 07/24/16 20:39 NT-Pro-B Natriuret Pep 62249 pg/mL (0-900) H 07/24/16 15:02 Renin 0.13 ng/mL/h (0.25-5.82) L 07/26/16 13:50 Aldosterone 3 ng/dL () 07/26/16 13:50 Aldosterone/Renin Dir 23.1 Ratio (0.9-28.9) 07/26/16 13:50 Urine Color Yellow (Yellow) 07/29/16 Unknown Urine Turbidity Slightly-cloudy (Clear) 07/29/16 Unknown Urine pH 6.0 (5.0-7.0) 07/29/16 Unknown Ur Specific Counselor 1.009 (1.003-1.030) 07/29/16 Unknown Urine Protein 100 mg/dl mg/dL (Negative) 07/29/16 Unknown Urine Glucose (UA) 150 mg/dL (Negative) 07/29/16 Unknown Urine Ketones Neg mg/dL (Negative) 07/29/16 Unknown Urine Blood Neg (Negative) 07/29/16 Unknown Urine Nitrite Neg (Negative) 07/29/16 Unknown Urine Bilirubin Neg (Negative) 07/29/16 Unknown Urine Urobilinogen < 2.0 mg/dL (<2.0) 07/29/16 Unknown Ur Leukocyte Esterase Tr (Negative) 07/29/16 Unknown Urine WBC (Auto) 6.0 /HPF (0.0-6.0) 07/29/16 Unknown Urine RBC (Auto) 4.0 /HPF (0.0-6.0) 07/29/16 Unknown U Epithel Cells (Auto) 6.0 /HPF (0-13.0) 07/29/16 Unknown Amorphous Crystals Few 07/29/16 Unknown Urine Eosinophils None seen (None Seen) 07/29/16 Unknown Urine Total Volume 1450 08/01/16 17:44 Urine Creatinine 62.0 mg/dL (0.1-20.0) H 08/01/16 17:44 Ur Creatinine 24 Hour 0.9 (0.8-2.8) 08/01/16 17:44 Urine Chloride < 10 mEq/L (110-250) L 08/01/16 17:44 Ur Chloride 24 Hour TNR 08/01/16 17:44 Urine Urea Nitrogen 233 12/30/16 17:44 Ur Urea Nitrogen 24 Hr 3.38 08/01/16 17:44 Urine Calcium < 0.8 mg/dL (6.8-21.3) L 08/01/16 17:44 Ur Calcium 24 Hr TNR 08/01/16 17:44 Hepatitis A IgM Ab Nonreactive (NonReactive) 08/05/16 13:37 Hep Bs Antigen Non-reactive (Negative) 08/05/16 13:37 Hep B Core IgM Ab Non-reactive (NonReactive) 08/05/16 13:37 Hepatitis C Antibody Non-reactive (NonReactive) 08/05/16 13:37
[2016-08-05] MEDS: XALATAN 0.005% OU SCH ×2 (17:58→22:22)
[2016-08-05] MEDS: ZOCOR PO SCH (22:23)
[2016-08-05] MEDS: ATIVAN PO SCH (22:24)
[2016-08-06] MEDS: LASIX IV SCH ×3 (06:33→17:30)
[2016-08-06] MEDS: HEPARIN SUB-Q SCH ×3 (06:33→23:11)
[2016-08-06] MEDS: IMDUR PO SCH ×2 (09:06→10:12)
[2016-08-06] MEDS: LONITEN PO SCH ×3 (09:07→23:05)
[2016-08-06] MEDS: PROTONIX PO SCH (09:08)
[2016-08-06] MEDS: NORVASC PO SCH (09:08)
[2016-08-06] MEDS: HALFPRIN EC PO SCH (09:08)
[2016-08-06] MEDS: PLAVIX PO SCH (09:09)
[2016-08-06] MEDS: NORMODYNE PO SCH ×3 (09:09→23:05)
[2016-08-06] MEDS: CATAPRES PO SCH ×4 (09:09→23:08)
[2016-08-06] MEDS: RANEXA ER PO SCH ×3 (09:16→23:13)
[2016-08-06] MEDS: PULMICORT IH SCH ×2 (09:17→21:30)
[2016-08-06] MEDS: BROVANA NEBU IH SCH ×2 (09:17→21:30)
[2016-08-06] MEDS: BENADRYL PO SCH ×2 (09:19→17:27)
[2016-08-06] MEDS: ALPHAGAN P 0.15% OU SCH ×3 (09:23→23:12)
--- NOTE | 2016-08-06 09:41 | Progress Note ---
Assessment and Plan Impression: * End-stage renal disease * Accelerated hypertension --Renal artery doppler negative for MARYURI * Chest pain * Anemia likely secondary to CKD * CAD * Acute on Chronic DHF Plan: * Uneventful hemodialysis yesterday. * Patient clinically still volume overloaded but better. Shall dialyze her again today * Continue dialysis on Mondays, Wednesdays and Fridays * Continue diuretics * Adjust diet and meds for ESRD state * Continue antiHTN medications - BP improved; continue to follow * Avoid potential nephrotoxins * Dose medications for renal function * will need outpatient hd placement. * She will also need a permanent access. Had Discussed with vascular surgery Subjective Date of service: 08/06/16 Principal diagnosis: Chest pain, Acute on chronic DHF, Accelerated HTN, Acute on CKD Interval history: Patient is comfortable today. Shortness of breath is improving. Denies any nausea vomiting or diarrhea Objective - Vital Signs Vital signs: Vital Signs - 12hr 08/06/16 08/06/16 08/06/16 01:07 05:00 09:06 Temperature 99.2 F 99.1 F Pulse Rate [ Anterior Bilateral Throughout] Pulse Rate [ 72 Left Radial] Pulse Rate [ 68 Right Radial] Respiratory 19 20 Rate Respiratory Rate [Anterior Bilateral Throughout] Blood Pressure 180/77 Blood Pressure 129/61 152/67 [Left Arm] O2 Sat by Pulse 96 95 Oximetry 08/06/16 08/06/16 09:18 09:26 Temperature Pulse Rate [ 77 76 Anterior Bilateral Throughout] Pulse Rate [ Left Radial] Pulse Rate [ Right Radial] Respiratory Rate Respiratory 18 18 Rate [Anterior Bilateral Throughout] Blood Pressure Blood Pressure [Left Arm] O2 Sat by Pulse Oximetry - General Appearance General appearance: well-developed, well-nourished, appears stated age EENT: PERRL, mucous membranes moist Neck: no JVD, no thyromegaly, no carotid bruit, supple, other (right IJ PermCath in place) Respiratory: Present: Rales (fine basal crackles) Cardiology: regular, normal heart rate Gastrointestinal: normal, normoactive bowel sounds Integumentary: no rash, other (1+ edema) - Lab 07/29/16 06:16 08/05/16 07:44 Most recent lab results Calcium 7.9 mg/dL (8.4-10.2) L 08/05/16 07:44 Urine Creatinine 62.0 mg/dL (0.1-20.0) H 08/01/16 17:44
[2016-08-06] MEDS ORDERED: NACL 0.9% 1000 ML 100 ML IV PRN (09:42)
[2016-08-06] MEDS ORDERED: PROCRIT IV PRN (10:00)
--- NOTE | 2016-08-06 11:42 | Progress Note ---
Assessment and Plan 70 y/o female with acute renal failure, now requiring HD and acute respiratory failure secondary to volume overload from renal failure. 1. Will see as needed now that patient no longer has O2 requirement Subjective Date of service: 08/06/16 Principal diagnosis: Chest pain, Acute on chronic DHF, Accelerated HTN, Acute on CKD Interval history: Weaned down to room air. Good sats. No complaints. Had HD yesterday. Per nephro note, going to dialyze again today. Objective Vital Signs - 12hr 08/06/16 08/06/16 08/06/16 01:07 05:00 08:50 Temperature 99.2 F 99.1 F 98.7 F Pulse Rate [ Anterior Bilateral Throughout] Pulse Rate [ 72 Left Radial] Pulse Rate [ 68 76 Right Radial] Respiratory 19 20 20 Rate Respiratory Rate [Anterior Bilateral Throughout] Blood Pressure Blood Pressure 129/61 152/67 [Left Arm] Blood Pressure 180/77 [Right Arm] O2 Sat by Pulse 96 95 97 Oximetry 08/06/16 08/06/16 08/06/16 09:06 09:18 09:26 Temperature Pulse Rate [ 77 76 Anterior Bilateral Throughout] Pulse Rate [ Left Radial] Pulse Rate [ Right Radial] Respiratory Rate Respiratory 18 18 Rate [Anterior Bilateral Throughout] Blood Pressure 180/77 Blood Pressure [Left Arm] Blood Pressure [Right Arm] O2 Sat by Pulse Oximetry Constitutional: no acute distress, alert Eyes: non-icteric ENT: oropharynx moist Neck: supple Ascultation: Bilateral: clear, diminished breath sounds, rales (at base) Cardiovascular: regular rate and rhythm Gastrointestinal: normoactive bowel sounds, soft, non-tender, non-distended Integumentary: normal Extremities: no cyanosis, no edema Neurologic: normal mental status, non-focal exam, CN II-XII normal Psychiatric: mood appropriate, affect normal CBC and BMP: 07/29/16 06:16 08/05/16 07:44 ABG, PT/INR, D-dimer: PT/INR, D-dimer PT 13.9 Sec. (12.2-14.9) 07/24/16 14:54 INR 1.08 (0.87-1.13) 07/24/16 14:54 Abnormal lab findings: Abnormal Labs 07/25/16 07/25/16 07/25/16 00:57 04:14 04:14 RBC 2.88 L Hgb 8.7 L Hct 25.7 L [place] % (Auto) Sodium Potassium Chloride Carbon Dioxide 19 L BUN 19 H Creatinine 3.1 H Glucose 237 H POC Glucose 279 H Calcium 8.0 L [place] Urine Creatinine Urine Chloride Urine Calcium 07/25/16 07/25/16 07/25/16 11:50 16:32 22:21 RBC Hgb Hct [place] % (Auto) Sodium Potassium Chloride Carbon Dioxide BUN Creatinine Glucose POC Glucose 209 H 218 H 256 H Calcium [place] Urine Creatinine Urine Chloride Urine Calcium 07/26/16 07/26/16 07/26/16 08:36 10:32 11:53 RBC Hgb Hct [place] % (Auto) Sodium 133 L Potassium Chloride 97.3 L Carbon Dioxide 18 L BUN 20 H Creatinine 3.2 H Glucose 274 H POC Glucose 212 H 296 H Calcium 7.9 L [place] Urine Creatinine Urine Chloride Urine Calcium 07/26/16 07/26/16 07/26/16 13:50 17:18 21:44 RBC Hgb Hct [place] % (Auto) Sodium Potassium Chloride Carbon Dioxide BUN Creatinine Glucose POC Glucose 142 H 168 H Calcium [place] 0.13 L Urine Creatinine Urine Chloride Urine Calcium 07/27/16 07/27/16 07/27/16 08:06 08:06 08:24 RBC 2.81 L Hgb 8.7 L Hct 25.3 L [place] % (Auto) 7.8 H Sodium Potassium Chloride Carbon Dioxide 21 L BUN 23 H Creatinine 3.6 H Glucose 248 H POC Glucose 255 H Calcium [place] Urine Creatinine Urine Chloride Urine Calcium 07/27/16 07/28/16 07/28/16 11:41 00:21 00:35 RBC Hgb Hct [place] % (Auto) Sodium Potassium Chloride Carbon Dioxide BUN Creatinine Glucose POC Glucose 191 H < 40 L 227 H Calcium [place] Urine Creatinine Urine Chloride Urine Calcium 07/28/16 07/28/16 07/28/16 06:26 07:53 12:59 RBC Hgb Hct [place] % (Auto) Sodium 136 L Potassium 5.1 H Chloride Carbon Dioxide 19 L BUN 28 H Creatinine 4.2 H Glucose 180 H POC Glucose 216 H 230 H Calcium [place] Urine Creatinine Urine Chloride Urine Calcium 07/28/16 07/29/16 07/29/16 16:18 06:16 06:16 RBC 2.66 L Hgb 8.2 L Hct 24.2 L [place] % (Auto) Sodium Potassium Chloride Carbon Dioxide 18 L BUN 26 H Creatinine 4.1 H Glucose 175 H POC Glucose 108 H Calcium 7.7 L [place] Urine Creatinine Urine Chloride Urine Calcium 07/29/16 07/29/16 07/29/16 07:22 13:05 16:10 RBC Hgb Hct [place] % (Auto) Sodium Potassium Chloride Carbon Dioxide BUN Creatinine Glucose POC Glucose 203 H 233 H 143 H Calcium [place] Urine Creatinine Urine Chloride Urine Calcium 07/29/16 07/30/16 07/30/16 21:26 06:33 12:27 RBC Hgb Hct [place] % (Auto) Sodium Potassium Chloride Carbon Dioxide 21 L BUN 30 H Creatinine 4.3 H Glucose POC Glucose 69 L 152 H Calcium 8.2 L [place] Urine Creatinine Urine Chloride Urine Calcium 07/30/16 07/30/16 07/31/16 17:10 18:50 07:11 RBC Hgb Hct [place] % (Auto) Sodium 133 L D Potassium Chloride Carbon Dioxide 19 L BUN 30 H Creatinine 4.5 H Glucose 57 L POC Glucose 60 L 42 L Calcium 7.8 L [place] Urine Creatinine Urine Chloride Urine Calcium 07/31/16 07/31/16 07/31/16 11:23 15:32 20:36 RBC Hgb Hct [place] % (Auto) Sodium Potassium Chloride Carbon Dioxide BUN Creatinine Glucose POC Glucose 163 H 161 H 169 H Calcium [place] Urine Creatinine Urine Chloride Urine Calcium 08/01/16 08/01/16 08/01/16 05:10 07:29 12:55 RBC Hgb Hct [place] % (Auto) Sodium 130 L Potassium Chloride 93.9 L Carbon Dioxide 19 L BUN 34 H Creatinine 4.3 H Glucose 144 H POC Glucose 196 H 238 H Calcium 7.8 L [place] Urine Creatinine Urine Chloride Urine Calcium 08/01/16 08/01/16 08/01/16 15:58 17:44 20:57 RBC Hgb Hct [place] % (Auto) Sodium Potassium Chloride Carbon Dioxide BUN Creatinine Glucose POC Glucose 124 H 48 L Calcium [place] Urine Creatinine 62.0 H Urine Chloride < 10 L Urine Calcium < 0.8 L 08/01/16 08/01/16 08/02/16 21:34 22:10 04:31 RBC Hgb Hct [place] % (Auto) Sodium Potassium Chloride Carbon Dioxide BUN Creatinine Glucose POC Glucose 60 L 68 L < 40 L Calcium [place] Urine Creatinine Urine Chloride Urine Calcium 08/02/16 08/02/16 08/02/16 05:03 06:32 07:58 RBC Hgb Hct [place] % (Auto) Sodium 128 L Potassium Chloride 92.5 L Carbon Dioxide 20 L BUN 37 H Creatinine 4.6 H Glucose POC Glucose 186 H 55 L Calcium 8.0 L [place] Urine Creatinine Urine Chloride Urine Calcium 08/02/16 08/02/16 08/02/16 09:11 11:24 16:32 RBC Hgb Hct [place] % (Auto) Sodium Potassium Chloride Carbon Dioxide BUN Creatinine Glucose POC Glucose 164 H 185 H 238 H Calcium [place] Urine Creatinine Urine Chloride Urine Calcium 08/02/16 08/03/16 08/03/16 22:39 03:14 03:35 RBC Hgb Hct [place] % (Auto) Sodium Potassium Chloride Carbon Dioxide BUN Creatinine Glucose POC Glucose 63 L < 40 L 188 H Calcium [place] Urine Creatinine Urine Chloride Urine Calcium 08/03/16 08/03/16 08/03/16 08:33 12:32 15:49 RBC Hgb Hct [place] % (Auto) Sodium 125 L Potassium 5.5 H D Chloride 91.8 L Carbon Dioxide 17 L BUN 36 H Creatinine 4.3 H Glucose 152 H POC Glucose 215 H 241 H Calcium 8.1 L [place] Urine Creatinine Urine Chloride Urine Calcium 08/03/16 08/04/16 08/04/16 21:21 06:14 07:22 RBC Hgb Hct [place] % (Auto) Sodium 129 L Potassium Chloride 91.7 L Carbon Dioxide 19 L BUN 37 H Creatinine 4.1 H Glucose 144 H POC Glucose 153 H 147 H Calcium 8.1 L [place] Urine Creatinine Urine Chloride Urine Calcium 08/04/16 08/04/16 08/05/16 15:36 21:18 07:44 RBC Hgb Hct [place] % (Auto) Sodium 134 L Potassium Chloride 95.2 L Carbon Dioxide BUN 27 H Creatinine 3.5 H Glucose 163 H POC Glucose 175 H 190 H Calcium 7.9 L [place] Urine Creatinine Urine Chloride Urine Calcium 08/05/16 08/05/16 08/05/16 08:28 16:43 21:24 RBC Hgb Hct [place] % (Auto) Sodium Potassium Chloride Carbon Dioxide BUN Creatinine Glucose POC Glucose 179 H 177 H 253 H Calcium [place] Urine Creatinine Urine Chloride Urine Calcium 08/06/16 08:56 RBC Hgb Hct [place] % (Auto) Sodium Potassium Chloride Carbon Dioxide BUN Creatinine Glucose POC Glucose 115 H Calcium [place] Urine Creatinine Urine Chloride Urine Calcium
--- NOTE | 2016-08-06 12:04 | Progress Note ---
Assessment and Plan Optimize anti-hypertensive regimen. - Patient Problems (1) Accelerated hypertension Current Visit: Yes Status: Acute (2) Acute on chronic diastolic heart failure Current Visit: Yes Status: Acute (3) Acute on chronic renal failure Current Visit: Yes Status: Acute (4) Chest pain Current Visit: Yes Status: Resolved Qualifiers: Chest pain type: unspecified Qualified Code(s): R07.9 - Chest pain, unspecified (5) CAD (coronary artery disease) Current Visit: Yes Status: Chronic Qualifiers: Coronary Disease-Associated Artery/Lesion type: [place] artery (6) Stented coronary artery Current Visit: Yes Status: Chronic (7) Diabetes Current Visit: Yes Status: Chronic (8) Anemia Current Visit: Yes Status: Chronic Qualifiers: Other causes of anemia: chronic disease, kidney Subjective Date of service: 08/06/16 Principal diagnosis: Chest pain, Acute on chronic DHF, Accelerated HTN, Acute on CKD Interval history: The patient is resting in bed. No new complaints. Sinus rhythm on the monitor. Objective Last Vital Signs Temp 98.7 F 08/06/16 08:50 Pulse 76 08/06/16 09:26 Resp 18 08/06/16 09:26 BP 180/77 08/06/16 09:06 Pulse Ox 97 08/06/16 08:50 - Physical Examination General: No Apparent Distress HEENT: Positive: EOMI, Normocephaly, Mucus Membranes Moist Neck: Positive: neck supple, trachea midline, JVD/HJR Cardiac: Positive: Reg Rate and Rhythm, S1/S2 Lungs: Positive: clear to auscultation Neuro: Positive: Grossly Intact Abdomen: Positive: Soft, Active Bowel Sounds. Negative: Tender Skin: Positive: Clear. Negative: Rash Musculoskeletal: Normal Range of Motion Extremities: Absent: edema - Imaging and Cardiology Echo: report reviewed, other (08/04/2016 normal LV function moderate LVH with moderate aortic regurgitation mild to moderate mitral regurgitation no wall motion mouth and noted ) - Telemetry EKG Rhythm: Sinus Rhythm
--- NOTE | 2016-08-06 13:31 | Progress Note ---
Assessment and Plan Assessment and plan: 1. Accelerated hypertension- uncontrolled; improved with the increase IMDUR, cont clonidine and cont other med; monitor; f/u renal / cardilology for further recommendations 2. CAD with Chest pain-s/p remote stent ; Ranexa added. AMI ruled out based on negative CE; refused stress testing; cont meds; she did have a stress test and 05/2015 which was negative 3. Acute on chronic diastolic heart failure- compensated. cont current manx; continue to hold Bumex patient on dialysis 4. Acute kidney injury superimposed on CKD due to vasomotor nephropathy- started on dialysis, vascular consult for permacath placement. 5. Anemia of chronic d/o- H/H now stable after acute fall; monitor; occult bloo d 6. DM- cont current insulin regime 7. Fall- Per patient's her legs gave out and she slid down to the floor with no trauma. No loss of consciousness.-d/w nurising and case management need PT OT evaluation and treat 8. Obesity 9. Hyponatremia- improved with dialysis 10. Hyperkalemia-resolving dialysis 11. Metabolic acidosis- Per Nephrology 12. Obstructive sleep [id number] Pulmonary- outpatient sleep study recommeded including PFT- On Discharge will need symptom relief with albuterol inhaler 13. DVT prophylaxis- d/c heparin; acute fall in H/h; SCD Discussed with case management for discharge planning. As such ruled out for outpatient dialysis History Interval history: f/u hypertension urgency; chest pain Patient seen and examined this morning in no acute distress, dialysis today. continues with PT Denies any, nausea, vomiting, diarrhea No fever noted blood pressure controlled . Hospitalist Physical - Physical exam Narrative exam: VITAL SIGNS: Reviewed. GENERAL: The patient appeared well nourished and normally developed otherwise lethargic.. Vital signs as documented. HEAD: No signs of head trauma. EYES: Pupils are equal. Extraocular motions intact. EARS: Hearing grossly intact. MOUTH: Oropharynx is normal. NECK: No adenopathy, no JVD. CHEST: Chest with clear breath sounds bilaterally. No wheezes, rales, or rhonchi. CARDIAC: Regular rate and rhythm. S1 and S2, without murmurs, gallops, or rubs. VASCULAR: 1+ pitting edema bilateral upper extremity and lower extremity Peripheral pulses normal and equal in all extremities. ABDOMEN: Soft, without detectable tenderness. No sign of distention. No rebound or guarding, and no masses palpated. Bowel Sounds normal. MUSCULOSKELETAL: Good range of motion of all major joints. Extremities without clubbing, cyanosis 1+ pitting edema bilateral upper extremity and lower extremity. NEUROLOGIC EXAM: Alert and oriented x 3. No focal sensory or strength deficits. Speech normal. Follows commands. PSYCHIATRIC: Mood normal. SKIN: No rash or lesions. - Constitutional Vitals: Temp Pulse Resp BP Pulse Ox 98.7 F 76 18 180/77 97 08/06/16 08:50 08/06/16 09:26 08/06/16 09:26 08/06/16 09:06 08/06/16 08:50 General appearance: Present: no acute distress, well-nourished Results - Labs CBC & Chem 7: 07/29/16 06:16 08/05/16 07:44 Labs: Laboratory Last Values WBC 7.3 K/mm3 (4.5-11.0) 07/29/16 06:16 RBC 2.66 M/mm3 (3.65-5.03) L 07/29/16 06:16 Hgb 8.2 gm/dl (10.1-14.3) L 07/29/16 06:16 Hct 24.2 % (30.3-42.9) L 07/29/16 06:16 MCV 91 fl (79-97) 07/29/16 06:16 MCH 31 pg (28-32) 07/29/16 06:16 MCHC 34 % (30-34) 07/29/16 06:16 RDW 14.4 % (13.2-15.2) 07/29/16 06:16 Plt Count 303 K/mm3 (140-440) 07/29/16 06:16 Lymph % (Auto) 28.3 % (13.4-35.0) 07/29/16 06:16 [place] % (Auto) 6.6 % (0.0-7.3) 07/29/16 06:16 Eos % (Auto) 3.5 % (0.0-4.3) 07/29/16 06:16 Baso % (Auto) 1.0 % (0.0-1.8) 07/29/16 06:16 Lymph # 2.1 K/mm3 (1.2-5.4) 07/29/16 06:16 Bureau # 0.5 K/mm3 (0.0-0.8) 07/29/16 06:16 Eos # 0.3 K/mm3 (0.0-0.4) 07/29/16 06:16 Baso # 0.1 K/mm3 (0.0-0.1) 07/29/16 06:16 Seg Neutrophils % 60.6 % (40.0-70.0) 07/29/16 06:16 Seg Neutrophils # 4.4 K/mm3 (1.8-7.7) 07/29/16 06:16 PT 13.9 Sec. (12.2-14.9) 07/24/16 14:54 INR 1.08 (0.87-1.13) 07/24/16 14:54 APTT 32.6 Sec. (24.2-36.6) 07/24/16 14:54 Sodium 134 mmol/L (137-145) L 08/05/16 07:44 Potassium 4.0 mmol/L (3.6-5.0) 08/05/16 07:44 Chloride 95.2 mmol/L (98-107) L 08/05/16 07:44 Carbon Dioxide 23 mmol/L (22-30) 08/05/16 07:44 Anion Gap 20 mmol/L 08/05/16 07:44 BUN 27 mg/dL (7-17) H 08/05/16 07:44 Creatinine 3.5 mg/dL (0.7-1.2) H 08/05/16 07:44 Estimated GFR 16 ml/min 08/05/16 07:44 BUN/Creatinine Ratio 7.71 % 08/05/16 07:44 Glucose 163 mg/dL (65-100) H 08/05/16 07:44 POC Glucose 115 (70-105) H 08/06/16 08:56 Calcium 7.9 mg/dL (8.4-10.2) L 08/05/16 07:44 Troponin T 0.015 ng/mL (0.00-0.029) 07/24/16 20:39 NT-Pro-B Natriuret Pep 79009 pg/mL (0-900) H 07/24/16 15:02 [place] 0.13 ng/mL/h (0.25-5.82) L 07/26/16 13:50 Aldosterone 3 ng/dL () 07/26/16 13:50 Aldosterone/[place] Dir 23.1 Ratio (0.9-28.9) 07/26/16 13:50 Urine Color Yellow (Yellow) 07/29/16 Unknown Urine Turbidity Slightly-cloudy (Clear) 07/29/16 Unknown Urine pH 6.0 (5.0-7.0) 07/29/16 Unknown Ur Specific [place] 1.009 (1.003-1.030) 07/29/16 Unknown Urine Protein 100 mg/dl mg/dL (Negative) 07/29/16 Unknown Urine Glucose (UA) 150 mg/dL (Negative) 07/29/16 Unknown Urine Ketones Neg mg/dL (Negative) 07/29/16 Unknown Urine Blood Neg (Negative) 07/29/16 Unknown Urine Nitrite Neg (Negative) 07/29/16 Unknown Urine Bilirubin Neg (Negative) 07/29/16 Unknown Urine Urobilinogen < 2.0 mg/dL (<2.0) 07/29/16 Unknown Ur Leukocyte Esterase Tr (Negative) 07/29/16 Unknown Urine WBC (Auto) 6.0 /HPF (0.0-6.0) 07/29/16 Unknown Urine RBC (Auto) 4.0 /HPF (0.0-6.0) 07/29/16 Unknown U Epithel Cells (Auto) 6.0 /HPF (0-13.0) 07/29/16 Unknown Amorphous Crystals Few 07/29/16 Unknown Urine Eosinophils None seen (None Seen) 07/29/16 Unknown Urine Total Volume 1450 08/01/16 17:44 Urine Creatinine 62.0 mg/dL (0.1-20.0) H 08/01/16 17:44 Ur Creatinine 24 Hour 0.9 (0.8-2.8) 08/01/16 17:44 Urine Chloride < 10 mEq/L (110-250) L 08/01/16 17:44 Ur Chloride 24 Hour TNR 08/01/16 17:44 Urine Urea Nitrogen 233 08/01/16 17:44 Ur Urea Nitrogen 24 Hr 3.38 08/01/16 17:44 Urine Calcium < 0.8 mg/dL (6.8-21.3) L 08/01/16 17:44 Ur Calcium 24 Hr TNR 08/01/16 17:44 Hepatitis A IgM Ab Nonreactive (NonReactive) 08/05/16 13:37 Hep Bs Antigen Non-reactive (Negative) 08/05/16 13:37 Hep B Core IgM Ab Non-reactive (NonReactive) 08/05/16 13:37 Hepatitis C Antibody Non-reactive (NonReactive) 08/05/16 13:37
[2016-08-06] MEDS: XALATAN 0.005% OU SCH (17:30)
[2016-08-06] MEDS: D50W (25GM) IV PRN (17:35)
[2016-08-06] MEDS: HEPARIN IV PRN (21:18)
[2016-08-06] MEDS: ATIVAN PO SCH (23:06)
[2016-08-06] MEDS: ZOCOR PO SCH (23:14)
[2016-08-07] MEDS: BENADRYL PO SCH ×3 (01:45→16:00)
[2016-08-07] MEDS: ALPHAGAN P 0.15% OU SCH ×4 (02:01→15:00)
[2016-08-07] MEDS: LASIX IV SCH ×2 (06:20→20:30)
[2016-08-07] MEDS: HEPARIN SUB-Q SCH ×3 (06:21→13:29)
[2016-08-07] MEDS: CATAPRES PO SCH ×3 (08:00→13:16)
[2016-08-07] MEDS: BROVANA NEBU IH SCH (08:28)
[2016-08-07] MEDS: PULMICORT IH SCH (08:28)
--- NOTE | 2016-08-07 08:35 | Vascular Lab Report ---
MISCELLANEOUS VESSEL IDENTIFICATION: COMMENTS ON THE SCAN: The right internal jugular vein was identified and under real-time ultrasound guidance was cannulated. IMPRESSION: Successful ultrasound guided vein cannulation.
--- NOTE | 2016-08-07 09:37 | Progress Note ---
Assessment and Plan Impression: * End-stage renal disease * Accelerated hypertension --Renal artery doppler negative for MARYURI * Chest pain * Anemia likely secondary to CKD * CAD * Acute on Chronic DHF Plan: * Uneventful hemodialysis yesterday. * Her volume overload has improved significantly * Continue dialysis on Mondays, Wednesdays and Fridays * Continue diuretics * Adjust diet and meds for ESRD state * Continue antiHTN medications - BP improved; continue to follow * Avoid potential nephrotoxins * Dose medications for renal function * will need outpatient hd placement. * She will also need a permanent access. Had Discussed with vascular surgery Subjective Date of service: 08/07/16 Principal diagnosis: Chest pain, Acute on chronic DHF, Accelerated HTN, Acute on CKD Interval history: Patient is comfortable today. Her shortness of breath is improved. No nausea vomiting or diarrhea Objective - Vital Signs Vital signs: Vital Signs - 12hr 08/06/16 08/06/16 08/06/16 21:40 22:00 22:50 Temperature 98.1 F Pulse Rate 89 81 Pulse Rate [ Anterior Bilateral Throughout] Pulse Rate [ Left Dorsalis Pedis] Respiratory 20 Rate Respiratory Rate [Anterior Bilateral Throughout] Blood Pressure 192/95 203/95 Blood Pressure [Left Arm] O2 Sat by Pulse 2 L Oximetry 08/06/16 08/06/16 08/06/16 23:02 23:05 23:08 Temperature Pulse Rate 87 78 78 Pulse Rate [ Anterior Bilateral Throughout] Pulse Rate [ Left Dorsalis Pedis] Respiratory Rate Respiratory Rate [Anterior Bilateral Throughout] Blood Pressure 227/99 227/99 227/99 Blood Pressure [Left Arm] O2 Sat by Pulse Oximetry 08/07/16 08/07/16 08/07/16 00:52 05:43 07:27 Temperature 98.2 F 98.2 F 98.2 F Pulse Rate Pulse Rate [ Anterior Bilateral Throughout] Pulse Rate [ 82 82 80 Left Dorsalis Pedis] Respiratory 20 18 20 Rate Respiratory Rate [Anterior Bilateral Throughout] Blood Pressure Blood Pressure 195/88 142/60 178/74 [Left Arm] O2 Sat by Pulse 96 94 94 Oximetry 08/07/16 08/07/16 08:35 09:09 Temperature Pulse Rate Pulse Rate [ 80 80 Anterior Bilateral Throughout] Pulse Rate [ Left Dorsalis Pedis] Respiratory Rate Respiratory 18 18 Rate [Anterior Bilateral Throughout] Blood Pressure Blood Pressure [Left Arm] O2 Sat by Pulse Oximetry - General Appearance General appearance: well-developed, well-nourished, appears stated age EENT: PERRL, mucous membranes moist Neck: no JVD, no thyromegaly, no carotid bruit, supple, other (right IJ PermCath in place) Respiratory: Present: Clear to Ascultation Cardiology: regular, normal heart rate, S1S2, no murmurs Gastrointestinal: normal, normoactive bowel sounds Integumentary: no rash, other (trace edema) - Lab 07/29/16 06:16 08/05/16 07:44 Most recent lab results Calcium 7.9 mg/dL (8.4-10.2) L 08/05/16 07:44 Urine Creatinine 62.0 mg/dL (0.1-20.0) H 08/01/16 17:44
[2016-08-07] MEDS: HALFPRIN EC PO SCH (09:58)
[2016-08-07] MEDS: LONITEN PO SCH (09:58)
[2016-08-07] MEDS ORDERED: COZAAR PO SCH (10:00)
[2016-08-07] MEDS: IMDUR PO SCH (10:00)
[2016-08-07] MEDS: NORMODYNE PO SCH (10:00)
[2016-08-07] MEDS: RANEXA ER PO SCH (10:01)
[2016-08-07] MEDS: NORVASC PO SCH ×2 (10:01→12:00)
[2016-08-07] MEDS: PROTONIX PO SCH ×2 (10:01→10:02)
[2016-08-07] MEDS: PLAVIX PO SCH ×2 (10:01→10:14)
--- NOTE | 2016-08-07 12:36 | Progress Note ---
Assessment and Plan Stable cardiac status. Continue current management. - Patient Problems (1) Accelerated hypertension Current Visit: Yes Status: Acute (2) Acute on chronic diastolic heart failure Current Visit: Yes Status: Acute (3) Acute on chronic renal failure Current Visit: Yes Status: Acute (4) Chest pain Current Visit: Yes Status: Resolved Qualifiers: Chest pain type: unspecified Qualified Code(s): R07.9 - Chest pain, unspecified (5) CAD (coronary artery disease) Current Visit: Yes Status: Chronic Qualifiers: Coronary Disease-Associated Artery/Lesion type: [place] artery (6) Stented coronary artery Current Visit: Yes Status: Chronic (7) Diabetes Current Visit: Yes Status: Chronic (8) Anemia Current Visit: Yes Status: Chronic Qualifiers: Other causes of anemia: chronic disease, kidney Subjective Date of service: 08/07/16 Principal diagnosis: Chest pain, Acute on chronic DHF, Accelerated HTN, Acute on CKD Interval history: No new complaints. Sinus rhythm on the monitor. Objective Last Vital Signs Temp 98.2 F 08/07/16 07:27 Pulse 74 08/07/16 11:13 Resp 18 08/07/16 09:09 BP 136/74 08/07/16 11:13 Pulse Ox 94 08/07/16 07:27 - Physical Examination General: No Apparent Distress HEENT: Positive: EOMI, Normocephaly, Mucus Membranes Moist Neck: Positive: neck supple, trachea midline, JVD/HJR Cardiac: Positive: Reg Rate and Rhythm, S1/S2 Lungs: Positive: clear to auscultation Neuro: Positive: Grossly Intact Abdomen: Positive: Soft, Active Bowel Sounds. Negative: Tender Skin: Positive: Clear. Negative: Rash Musculoskeletal: Normal Range of Motion Extremities: Absent: edema - Imaging and Cardiology Echo: report reviewed, other (08/04/2016 normal LV function moderate LVH with moderate aortic regurgitation mild to moderate mitral regurgitation no wall motion mouth and noted ) - Telemetry EKG Rhythm: Sinus Rhythm
--- NOTE | 2016-08-07 15:28 | Discharge Summary ---
Providers - Providers Date of Admission: 07/24/16 18:31 Date of discharge: 08/07/16 Attending physician: ANDRY BLANCHARD MD 08/03/16 14:45 Consult to Physician [CONS] Routine Consulting Provider: MIKE REED Reason For Exam: vasc cath placement Place consult to:: vascular Notified:: a service Phone number called:: [phone] Was contact made?: Yes If yes, spoke with:: fiilpe Time called:: 10:06 08/05/16 10:34 Consult to Case Management [CONS] Routine Services Needed at Discharge: Other Notified:: renal case manager Comment:: outpatient dialysis arrangements Additional Physician Instructions: Arlene Helm 07/24/16 Consult to Cardiac Rehabilitation [CONS] Routine Reason For Exam: Phase I 07/24/16 18:49 Consult to Physician [CONS] Routine Consulting Provider: MIGUEL MAN Reason For Exam: Acute on CKD Place consult to:: answering service Notified:: yes Phone number called:: [phone] If yes, spoke with:: victor hugo Time called:: 06:49 07/29/16 10:41 Occupational Therapy Evaluate and Treat [CONS] Routine Comment: Reason For Exam: debility Physical Therapy Evaluation and Treat [CONS] Routine Comment: Reason For Exam: debility 07/29/16 18:02 Physical Therapy Evaluation and Treat [CONS] Routine Comment: Reason For Exam: weakness lower extremties 07/29/16 18:04 Occupational Therapy Evaluate and Treat [CONS] Routine Comment: Reason For Exam: weakness lower extremities Primary care physician: CULTURE MANAGER Hospitalization Reason for admission: chest pain Condition: Stable Hospital course: patient is 77-year-old with history of hypertension, coronary artery disease, CHF ,chronic kidney disease. She went to see a legal support analyst Dr. Man had multiple complaints and was sent to lute packer or applier. She was evaluated by Dr. Dobson. She complained of chest pain. Her blood pressure was very elevated so was sent to the emergency department for further evaluation. Chest pain is 10 out of 10. Quality like a pressure. She denies any radiation. Chest pain is worse on exertion. Shortness of breath also worse on exertion. In emergency department initial blood pressure was 282/218. She was given clonidine, Norvasc and will be admitted to telemetry if BP controlled or ICU if BP remains high. She was evaluated by lute packer or applier in emergency department. patient was started on adequate bp control, duiresis was held, due to renal function abnormality but needed dialysis and improved with initiation dialysis. Dialysis will be TTS Discharge diagnosis 1. Accelerated hypertension- uncontrolled; treated IMDUR, cont clonidine and cont other med; monitor 2. CAD with Chest pain-s/p remote stent ; Ranexa added. AMI ruled out based on negative CE; refused stress testing; cont meds; she did have a stress test and 05/2015 which was negative 3. Acute on chronic diastolic heart failure- compensated. cont current manx; continue to hold Bumex patient on dialysis 4. Acute kidney injury superimposed on CKD due to vasomotor nephropathy- started on dialysis, vascular consult for permacath placement. 5. Anemia of chronic d/o- H/H now stable after acute fall; monitor; occult bloo d 6. DM- cont current insulin regime 7. Fall- Per patient's her legs gave out and she slid down to the floor with no trauma. No loss of consciousness.-d/w nurising and case management need PT OT evaluation and treat 8. Obesity 9. Hyponatremia- improved with dialysis 10. Hyperkalemia-resolving dialysis 11. Metabolic acidosis- Per Nephrology 12. Obstructive sleep [id number] Pulmonary- outpatient sleep study recommeded including PFT- On Discharge will need symptom relief with albuterol inhaler Disposition: DC/TX HOME UNDER HOME HEALTH Time spent for discharge: 35 mins Core Measure Documentation - Palliative Care Palliative Care/ Comfort Measures: Not Applicable - Core Measures Any of the following diagnoses?: heart failure, none - VTE Discharge Requirements Deep Vein Thrombosis/Pulmonary Embolism Present on Admission: No - Heart Failure Discharge Requirements KWADWO/ARB for LVSD if EF <40%: Yes Beta ruby at discharge: Yes Exam - Physical Exam Narrative exam: VITAL SIGNS: Reviewed. GENERAL: The patient appeared well nourished and normally developed otherwise lethargic.. Vital signs as documented. HEAD: No signs of head trauma. EYES: Pupils are equal. Extraocular motions intact. EARS: Hearing grossly intact. MOUTH: Oropharynx is normal. NECK: No adenopathy, no JVD. CHEST: Chest with clear breath sounds bilaterally. No wheezes, rales, or rhonchi. CARDIAC: Regular rate and rhythm. S1 and S2, without murmurs, gallops, or rubs. VASCULAR: 1+ pitting edema bilateral upper extremity and lower extremity Peripheral pulses normal and equal in all extremities. ABDOMEN: Soft, without detectable tenderness. No sign of distention. No rebound or guarding, and no masses palpated. Bowel Sounds normal. MUSCULOSKELETAL: Good range of motion of all major joints. Extremities without clubbing, cyanosis 1+ pitting edema bilateral upper extremity and lower extremity. NEUROLOGIC EXAM: Alert and oriented x 3. No focal sensory or strength deficits. Speech normal. Follows commands. PSYCHIATRIC: Mood normal. SKIN: No rash or lesions. - Constitutional Vitals: Temp Pulse Resp BP Pulse Ox 98.7 F 70 20 140/76 96 08/07/16 11:25 08/07/16 13:16 08/07/16 11:25 08/07/16 13:16 08/07/16 11:25 Plan Activity: advance as tolerated, fall precautions Diet: low salt, diabetic Special Instructions: record daily weights, record daily BP diary, record blood sugar diary, physical therapy, occupational therapy, home health RN Additional Instructions: should have first dailaysis day tomorrow 08/08/16 Follow up with: PRIMARY CARE, [Primary Care Provider] - 7 Days Prescriptions: Losartan [Cozaar] 50 mg PO QDAY #30 tablet predniSONE [Deltasone] 10 mg PO .TAPER #48 tab ISOSORBIDE MONOnitrate [Imdur ER] 120 mg PO QDAY #30 tablet Minoxidil [Loniten] 10 mg PO BID #60 tablet Ranolazine ER [Ranexa ER] 500 mg PO BID #60 tablet
[2016-08-07 16:15] VITALS: BP 106/53
[2016-08-07] MEDS: XALATAN 0.005% OU SCH (18:00)
== END 2016-08-07 20:50 | disposition home health service (06) | DRG 286 ==
LOC: ED 14:25 → 4A 18:31 → CC1 22:59 → 4A 07-25 17:38
PROVIDERS: ADMIT Internal Medicine; ATTEND Internal Medicine
PROC: 3E0234Z Introduction of Serum, Toxoid and Vaccine into Muscle, Percutaneous Approach (ICD-10-PCS; 2016-07-25)
PROC: 02H633Z Insertion of Infusion Device into Right Atrium, Percutaneous Approach (ICD-10-PCS; principal; 2016-08-04)
PROC: B2141ZZ Fluoroscopy of Right Heart using Low Osmolar Contrast (ICD-10-PCS; 2016-08-04)
PROC: B543ZZA Ultrasonography of Right Jugular Veins, Guidance (ICD-10-PCS; 2016-08-04)
PROC: 5A1D60Z (ICD-10-PCS; 2016-08-04)
DX: I13.0 Hypertensive heart and chronic kidney disease with heart failure and stage 1 through stage 4 chronic kidney disease, or unspecified chronic kidney disease (principal); I50.33 Acute on chronic diastolic (congestive) heart failure; N17.0 Acute kidney failure with tubular necrosis; J96.01 Acute respiratory failure with hypoxia; I16.1 Hypertensive emergency; N18.4 Chronic kidney disease, stage 4 (severe); E87.2 Acidosis; E87.1 Hypo-osmolality and hyponatremia; I25.10 Atherosclerotic heart disease of native coronary artery without angina pectoris; F32.9 Major depressive disorder, single episode, unspecified; E11.22 Type 2 diabetes mellitus with diabetic chronic kidney disease; I08.0 Rheumatic disorders of both mitral and aortic valves; K21.9 Gastro-esophageal reflux disease without esophagitis; M19.90 Unspecified osteoarthritis, unspecified site; G43.909 Migraine, unspecified, not intractable, without status migrainosus; J45.909 Unspecified asthma, uncomplicated; E66.01 Morbid (severe) obesity due to excess calories; G47.33 Obstructive sleep apnea (adult) (pediatric); E11.65 Type 2 diabetes mellitus with hyperglycemia; D63.1 Anemia in chronic kidney disease; E78.2 Mixed hyperlipidemia; W18.30XA Fall on same level, unspecified, initial encounter; E11.649 Type 2 diabetes mellitus with hypoglycemia without coma; J44.9 Chronic obstructive pulmonary disease, unspecified; E87.5 Hyperkalemia; Z23 Encounter for immunization; Z98.890 Other specified postprocedural states; Z90.49 Acquired absence of other specified parts of digestive tract; Z90.710 Acquired absence of both cervix and uterus; Z88.2 Allergy status to sulfonamides; Z88.8 Allergy status to other drugs, medicaments and biological substances; Z88.5 Allergy status to narcotic agent; Z91.013 Allergy to seafood; I25.2 Old myocardial infarction; Z95.5 Presence of coronary angioplasty implant and graft; Z79.02 Long term (current) use of antithrombotics/antiplatelets; Z79.899 Other long term (current) drug therapy; Z79.82 Long term (current) use of aspirin; Z79.4 Long term (current) use of insulin; Z68.32 Body mass index [BMI] 32.0-32.9, adult; Z82.49 Family history of ischemic heart disease and other diseases of the circulatory system; Z83.3 Family history of diabetes mellitus
CPT/HCPCS: 36415; 36558; 70450; 71010; 71020; 76937; 77001; 80048; 80074; 81001; 82088; 82436; 82570; 82962; 83880; 84484; 84540; 85025; 85610; 85730; 86706; 86803; 89050; 90686; 93005; 93010; 93306; 93975; 94640; 94760; C1750; C1769; J0690; J0885; J1644; J1815; J1940; J2250; J2597; J3010; J7030; J7050

== ENCOUNTER 2016-08-14 15:38 | Emergency (ER) | payer MEDICARE ==
[2016-08-14 15:59] VITALS: BP 173/75
[2016-08-14] MEDS ORDERED: ZOFRAN ODT PO ONE (17:47)
--- NOTE | 2016-08-14 17:48 | Emergency Department Report ---
Chief Complaint: High BP Stated Complaint: HBP Time Seen by Provider: 08/14/16 17:42 - HPI History of Present Illness: 70-year-old female with end-stage renal disease comes in for elevated blood pressure. Patient reports her dialysis days are Thursday. She went in today but her blood pressure was 206/100 and something. Patient reports that she did not have dialysis today. They sent patient here by ambulance to be reevaluated. Patient admits to nausea no fever no diarrhea no vomiting. Patient is not taking any meds today she's not sure what she should be taken she is currently on a medication evaluation. - Exam Vital Signs: Vital Signs 08/14/16 15:55 Temperature 97.9 F Pulse Rate 71 Respiratory 22 Rate Blood Pressure 173/75 O2 Sat by Pulse 99 Oximetry Physical Exam: Patient is oriented 3. No acute distress. Cardiovascular regular rate and rhythm notice a murmur, respiratory clear to auscultation abdomen soft nontender nondistended bowel sounds throughout MSE screening note: Focused history and physical exam performed. Due to findings the following was ordered: CBC BMP PT PTT ED Disposition for MSE Condition: Stable
[2016-08-14 18:37] LABS: BUN/Creatinine Ratio 3.86; Calcium 8.3 mg/dL (8.4-10.2); Chloride 97.6 mmol/L (98-107); Potassium 3.6 mmol/L (3.6-5.0)
[2016-08-14 19:06] LABS: Hematocrit 25.9 % (30.3-42.9); Hemoglobin 8.9 gm/dl (10.1-14.3); Mean Corpuscular HGB Conc 34 % (30-34); Mean Corpuscular Hemoglobin 31 pg (28-32); Mean Corpuscular Volume 91 fl (79-97); Platelet Count 394 K/mm3 (140-440); Red Blood Count 2.86 M/mm3 (3.65-5.03); Red Cell Distribution Width 14.1 % (13.2-15.2); White Blood Count 6.7 K/mm3 (4.5-11.0)
[2016-08-14 19:16] LABS: INR 1.06 (0.87-1.13)
--- NOTE | 2016-08-16 04:42 | ED Elopement Review ---
ED Pt Elopement review - Results review Lab results: Laboratory Tests 08/14/16 08/14/16 08/14/16 17:54 17:54 17:54 WBC 6.7 RBC 2.86 L Hgb 8.9 L Hct 25.9 L MCV 91 MCH 31 MCHC 34 RDW 14.1 Plt Count 394 PT 13.7 INR 1.06 APTT 33.0 Sodium 138 Potassium 3.6 Chloride 97.6 L Carbon Dioxide 22 Anion Gap 22 BUN 17 Creatinine 4.4 H Estimated GFR 12 BUN/Creatinine Ratio 3.86 Glucose 243 H Calcium 8.3 L - Call Back decision Pt Call Back Decision: No action required
== END 2016-08-14 23:41 | disposition left against medical advice (07) ==
LOC: ED 15:38
DX: I12.0 Hypertensive chronic kidney disease with stage 5 chronic kidney disease or end stage renal disease (principal); N18.6 End stage renal disease; Z99.2 Dependence on renal dialysis; Z53.21 Procedure and treatment not carried out due to patient leaving prior to being seen by health care provider
CPT/HCPCS: 36415; 80048; 85027; 85610; 85730; Q0162

== ENCOUNTER 2017-04-23 14:37 | Emergency (ER) | payer MEDICARE ==
[2017-04-23] MEDS ORDERED: APRESOLINE PO ONE (15:10)
[2017-04-23] MEDS ORDERED: NORMODYNE IV ONE ×3 (17:01→20:06)
[2017-04-23 17:43] LABS: Basophils % (Auto) 0.4 % (0.0-1.8); Eosinophils % (Auto) 2.9 % (0.0-4.3); Hematocrit 32.6 % (30.3-42.9); Hemoglobin 11.1 gm/dl (10.1-14.3); Mean Corpuscular HGB Conc 34 % (30-34); Mean Corpuscular Hemoglobin 31 pg (28-32); Mean Corpuscular Volume 91 fl (79-97); Platelet Count 360 K/mm3 (140-440); Red Blood Count 3.57 M/mm3 (3.65-5.03); Red Cell Distribution Width 17.5 % (13.2-15.2); White Blood Count 9.6 K/mm3 (4.5-11.0)
[2017-04-23 17:46] LABS: BUN/Creatinine Ratio 13.91; Calcium 9.1 mg/dL (8.4-10.2); Chloride 91.1 mmol/L (98-107); Potassium 3.5 mmol/L (3.6-5.0)
[2017-04-23] MEDS ORDERED: NITROSTAT SL ONE (17:54)
[2017-04-23] MEDS ORDERED: APRESOLINE IV ONE (17:54)
--- NOTE | 2017-04-23 18:37 | Emergency Department Report ---
HPI - General Chief Complaint: High BP Time Seen by Provider: 04/23/17 16:39 - HPI HPI: The patient's in the 71-year-old female presents for management of elevated blood pressure. The patient has a history of severe hypertension and end-stage renal disease. The patient presents from her dialysis clinic after being found to have severely elevated blood pressure prior to receiving dialysis. She admits to mild generalized weakness for 1-2 days, exacerbated with activity and improved with rest. The patient denies fever, headache, dizziness, paresthesia , motor deficit, chest pain, dyspnea, abdominal pain, vomiting, diarrhea. 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 04/06/14 02/23/17 1 Day Ago Rx Potassium Chloride [Klor-Con 8] 8 meq PO QDAY #30 tablet 04/06/14 02/23/17 1 Day Ago Rx cloNIDine [Catapres] 0.2 mg PO TID #90 tablet 04/06/14 02/23/17 1 Day Ago Rx LORazepam [Ativan] 1 mg PO QHS #30 tablet 07/20/15 02/23/17 1 Day Ago Rx Cholecalciferol (Vitamin D3) 1,000 unit PO DAILY #0 02/07/16 02/23/17 1 Day Ago History [Children's Vitamin D3 1,000 unit CHEW] diphenhydrAMINE [Benadryl CAP] 50 mg PO Q8H 02/07/16 02/23/17 1 Day Ago History traMADol [Ultram 50 MG tab] 50 mg PO Q4HR PRN #20 tablet 04/04/16 02/23/17 1 Day Ago Rx ISOSORBIDE MONOnitrate [Imdur ER] 120 mg PO QDAY #30 tablet 08/07/16 02/23/17 1 Day Ago Rx Labetalol [Normodyne TAB] 400 mg PO BID #90 tablet 08/07/16 02/23/17 1 Day Ago Rx Losartan [Cozaar] 50 mg PO QDAY #30 tablet 08/07/16 02/23/17 2 Days Ago Rx Minoxidil [Loniten] 10 mg PO BID #60 tablet 08/07/16 02/23/17 1 Day Ago Rx predniSONE [Deltasone] 10 mg PO .TAPER #48 tab 08/07/16 02/23/17 1 Day Ago Rx Aspirin [Aspirin BABY CHEW TAB] 81 mg PO QDAY #30 tab.chew 02/26/17 Unknown Rx Brimonidine 0.15% [Alphagan P 1 drop INTRAOCULA TID #30 bottle 02/26/17 Unknown Rx 0.15%] Clopidogrel [Plavix] 75 mg PO QDAY #30 tablet 02/26/17 Unknown Rx Latanoprost 0.005% [Xalatan 0.005%] 1 drops OU QPM #30 bottle 02/26/17 Unknown Rx Pantoprazole [Protonix TAB] 40 mg PO DAILY tablet 02/26/17 Unknown Rx Pravastatin Sodium [Pravastatin] 40 mg PO HS #30 tablet 02/26/17 Unknown Rx Ranolazine ER [Ranexa ER] 500 mg PO BID #60 tablet 02/26/17 Unknown Rx amLODIPine [Norvasc] 10 mg PO QDAY #300 tablet 04/23/17 Unknown Rx ED Review of Systems ROS: Stated complaint: HYPERTENSION EMERGENCY Other details as noted in HPI Constitutional: reports weakness denies: fever ENT: denies: throat or neck pain Respiratory: denies: cough, shortness of breath Cardiovascular: denies: chest pain Endocrine: denies unexplained weight loss or gain Gastrointestinal: denies: abdominal pain, nausea Genitourinary: denies: dysuria Musculoskeletal: denies: leg swelling Skin: denies: rash Neurological: denies: headache Hematological/Lymphatic: denies: easy bleeding or easy bruising Psych: denies sadness or hopelessness Physical Exam - Physical Exam Vital Signs: Vital Signs 04/23/17 04/23/17 04/23/17 14:55 15:02 15:16 Temperature 98.3 F Pulse Rate 84 85 82 Respiratory 18 15 13 Rate Blood Pressure 217/85 220/85 Blood Pressure 217/85 [Left] O2 Sat by Pulse 100 100 100 Oximetry 04/23/17 04/23/17 04/23/17 15:18 15:31 15:45 Temperature Pulse Rate 85 85 Respiratory 14 14 17 Rate Blood Pressure 220/85 216/78 Blood Pressure [Left] O2 Sat by Pulse 100 100 100 Oximetry 04/23/17 04/23/17 04/23/17 16:00 16:15 16:31 Temperature Pulse Rate 85 87 87 Respiratory 16 14 11 L Rate Blood Pressure 218/84 218/84 218/84 Blood Pressure [Left] O2 Sat by Pulse 100 100 100 Oximetry 04/23/17 04/23/17 17:50 18:06 Temperature Pulse Rate 82 82 Respiratory Rate Blood Pressure 233/82 229/82 Blood Pressure [Left] O2 Sat by Pulse Oximetry Physical Exam: General: well-nourished, well-developed, no acute distress Head: Normocephalic, atraumatic Eyes: normal sclera ENT: Mucous membranes are pale and dry Neck: No neck stiffness, no cervical adenopathy Respiratory: Breath sounds equal bilaterally, no wheezing, rales, or rhonchi Cardio: S1 and S2 present, no murmurs, rubs, gallops, capillary refill is delayed Abdomen: Normoactive bowel sounds, soft abdomen, no rigidity, no guarding or rebound tenderness Musc: No pitting edema Skin: No rash Neuro: no facial drooping, normal speech, no obvious gross sensation or motor deficits in the arms or legs Psych: Normal affect ED Course Vital Signs 04/23/17 04/23/17 04/23/17 14:55 15:02 15:16 Temperature 98.3 F Pulse Rate 84 85 82 Respiratory 18 15 13 Rate Blood Pressure 217/85 220/85 Blood Pressure 217/85 [Left] O2 Sat by Pulse 100 100 100 Oximetry 04/23/17 04/23/17 04/23/17 15:18 15:31 15:45 Temperature Pulse Rate 85 85 Respiratory 14 14 17 Rate Blood Pressure 220/85 216/78 Blood Pressure [Left] O2 Sat by Pulse 100 100 100 Oximetry 04/23/17 04/23/17 04/23/17 16:00 16:15 16:31 Temperature Pulse Rate 85 87 87 Respiratory 16 14 11 L Rate Blood Pressure 218/84 218/84 218/84 Blood Pressure [Left] O2 Sat by Pulse 100 100 100 Oximetry 04/23/17 04/23/17 17:50 18:06 Temperature Pulse Rate 82 82 Respiratory Rate Blood Pressure 233/82 229/82 Blood Pressure [Left] O2 Sat by Pulse Oximetry ED Medical Decision Making - Lab Data Result diagrams: 04/23/17 17:00 04/23/17 17:00 - Medical Decision Making The patient was seen and examined by myself. The patient is placed on a receiving associate store and continuous pulse ox. On initial evaluation, the patient was found to be in no distress. EKG was negative for findings suggestive of acute cardiac infarct. The patient is given IV labetalol and IV hydralazine for her elevated blood pressure. Labs and imaging are obtained. Chest x-ray is negative for pneumothorax, focal consolidation, pulmonary vascular congestion, pleural effusion, or other obvious acute cardiopulmonary disease process. Lab results reveal elevated glucose of 280, elevated BUN and creatinine of 32 and 2.3 respectively, consistent with known history of end-stage renal disease, and otherwise labs were non-concerning including levels of WBC, hemoglobin, hematocrit. On reexamination the patient's blood pressure was found to decrease outside of range concerning for hypertensive emergency, BP now 171/69. The patient is stable for discharge with outpatient follow-up. The patient is given follow-up and return instructions. The patient expressed understanding and agreed with the plan. The patient is discharged in stable condition. Critical care attestation.: If time is entered above; I have spent that time in minutes in the direct care of this critically ill patient, excluding procedure time. ED Disposition Clinical Impression: Hypertensive urgency, Acute hyperglycemia, ESRD (end stage renal disease) on dialysis Disposition: - TO HOME OR SELFCARE Is pt being admited?: No Does the pt Need Aspirin: No Condition: Stable Instructions: Chronic Hypertension (ED) Prescriptions: amLODIPine [Norvasc] 10 mg PO QDAY #300 tablet Referrals: PRIMARY CAREMD [Primary Care Provider] - 3-5 Days Time of Disposition: 18:33
--- NOTE | 2017-04-23 19:11 | XRay Report ---
FINAL REPORT PROCEDURE: XR CHEST 1V AP TECHNIQUE: Chest radiograph anteroposterior view. CPT 69955 HISTORY: chest pain COMPARISON: No prior studies are available for comparison. FINDINGS: Heart: Coronary arterial stents are identified. Mediastinum/Vessels: Normal. Lungs/Pleural space: Normal. Bony thorax: No acute osseous abnormality. Life support devices: A right jugular tunneled catheter is identified terminating at the level of cavoatrial junction. IMPRESSION: No acute pulmonary process.
[2017-04-23] MEDS ORDERED: LASIX IV ONE (19:53)
[2017-04-23] MEDS ORDERED: LASIX ONE (20:06)
[2017-04-23 21:31] VITALS: BP 207/93
== END 2017-04-23 21:36 | disposition home or self-care (01) ==
LOC: ED 14:37
DX: E11.22 Type 2 diabetes mellitus with diabetic chronic kidney disease (principal); I12.0 Hypertensive chronic kidney disease with stage 5 chronic kidney disease or end stage renal disease; N18.6 End stage renal disease; Z99.2 Dependence on renal dialysis; J45.909 Unspecified asthma, uncomplicated; J44.9 Chronic obstructive pulmonary disease, unspecified; G43.909 Migraine, unspecified, not intractable, without status migrainosus; I50.9 Heart failure, unspecified
CPT/HCPCS: 36415; 71010; 80048; 82962; 85025; 93005; 93010; 96374; 96375; 96376; 99285; J0360; J1940; J1815

== ENCOUNTER 2017-12-11 09:03 | Outpatient (CLI) | payer MEDICARE ==
--- NOTE | 2017-12-11 14:16 | Fluoroscopy Report ---
MODIFIED BARIUM SWALLOW INDICATION: Dysphagia. COMPARISON: None similar. IMAGES/CINE CLIPS: 1 FINDINGS: Fluoroscopy with video provided by radiologist for speech therapist to assess the swallowing mechanism. Food items of various consistencies given. Multilevel cervical spondylosis and few missing teeth noted. IMPRESSION: Successful modified barium swallow. Please refer to detailed report from speech pathologist. Thank you for the opportunity to participate in this patient's care.
== END 2017-12-11 09:04 | disposition home or self-care (01) ==
LOC: PT 09:03
PROVIDERS: ATTEND Internal Medicine
DX: R13.12 Dysphagia, oropharyngeal phase (principal); M47.894 Other spondylosis, thoracic region
CPT/HCPCS: 74230; 92611; G8996; G8997; G8998